=== PATIENT | male | born 1970 | race Two or more races ===

== ENCOUNTER 2020-03-24 10:36 | Outpatient (REF) | payer OTHER, SELFPAY ==
[2020-03-24 14:40] LABS: Anion Gap 12 (12-20); Blood Urea Nitrogen 16 mg/dL (9-16); C Reactive Protein 0.84 mg/dL (< or = 0.50); Calcium 9.3 mg/dL (8.4-10.2); Carbon Dioxide 31 mmol/L (22-29); Chloride 104 mmol/L (96-108); Estimated Glomerular Filt Rate > 60; Glucose Random 92 mg/dL (60-115); Potassium 4.7 mmol/l (3.3-5.1); Sodium 142 mmol/L (135-145)
== END 2020-03-24 10:37 | disposition home or self-care (01) ==
LOC: HO.10HDL 10:36
PROVIDERS: Visit Provider Internal Medicine
DX: M79.675 Pain in left toe(s) (principal)
CPT/HCPCS: 80048; 84550; 86140

== ENCOUNTER 2020-05-27 14:18 | Outpatient (REF) | payer OTHER, SELFPAY | END 2020-05-27 14:19 | disposition home or self-care (01) | LOC: HO.LAB 14:18 | PROVIDERS: Visit Provider Internal Medicine | DX: Z20.828 Contact with and (suspected) exposure to other viral communicable diseases (principal) | CPT/HCPCS: C9803; U0003 ==

== ENCOUNTER 2020-11-18 07:10 | Outpatient (REF) | payer OTHER, SELFPAY ==
[2020-11-18 09:21] LABS: MANUAL DIFF FLAG NO
[2020-11-18 09:25] LABS: Basophils Percent Auto 0.5 % (0-2); Eosinophils Absolute Auto 0.1 X10*3/uL (0.0-0.4); Eosinophils Percent Auto 1.6 % (0-4); Hematocrit 39.9 % (42-52); Hemoglobin 13.1 g/dl (14.0-18.0); Imm Gran Abs Auto 0.02 X10*3/uL (0.00-0.03); Imm Gran Pct Auto 0.3 % (0.0-0.4); Lymphocytes Absolute Auto 1.6 X10*3/uL (1.2-4.9); Lymphocytes Percent Auto 24.8 % (20-40); Mean Corpuscular HGB Conc 32.8 g/dl (31.0-36.0); Mean Corpuscular Hemoglobin 30.8 pg (27.0-33.0); Mean Corpuscular Volume 93.9 fL (80-98); Mean Platelet Volume 11.3 fL (9.4-12.4); Monocytes Absolute Auto 0.6 X10*3/uL (0.1-1.2); Monocytes Percent Auto 8.8 % (2-11); Neutrophils Absolute Auto 4.1 X10*3/uL (2.0-8.3); Platelet Count 238 X10*3/uL (160-400); Red Blood Count 4.25 X10*6/uL (4.60-5.80); Red Cell Distribution Width 13.9 % (11.0-16.0); White Blood Count 6.4 X10*3/uL (4.8-10.8)
[2020-11-18 09:55] LABS: Alanine Aminotransferase 25 U/L (0-40); Albumin Level 4.4 g/dL (3.5-5.0); Alkaline Phosphatase 80 U/L (39-117); Anion Gap 12 (12-20); Aspartate Amino Transferase 33 U/L (5-37); Bilirubin Total 0.3 mg/dL (0.0-1.0); Blood Urea Nitrogen 16 mg/dL (9-16); C Reactive Protein 0.13 mg/dL (< or = 0.50); Calcium 9.2 mg/dL (8.4-10.2); Carbon Dioxide 29 mmol/L (22-29); Chloride 105 mmol/L (96-108); Estimated Glomerular Filt Rate > 60; Glucose Random 95 mg/dL (60-115); Potassium 4.3 mmol/L (3.3-5.1); Sodium 142 mmol/L (135-145); Total Protein 6.8 g/dL (6.5-8.0)
[2020-11-18 09:57] LABS: HIV AB/AG Nonreactive (Nonreactive); HIV Num 1 0.05 S/CO (0.00-0.99)
[2020-11-18 10:01] LABS: Vitamin D 25-OH Total 29.1 ng/mL (>30)
[2020-11-18 10:11] LABS: Vitamin B12 337 pg/mL (200-900)
== END 2020-11-18 07:11 | disposition home or self-care (01) ==
LOC: HO.LAB 07:10
PROVIDERS: PCP Internal Medicine; Visit Provider Internal Medicine
DX: R53.83 Other fatigue (principal); S09.90XA Unspecified injury of head, initial encounter; R63.4 Abnormal weight loss; X58.XXXA Exposure to other specified factors, initial encounter; Y93.9 Activity, unspecified; Y92.9 Unspecified place or not applicable; Y99.9 Unspecified external cause status
CPT/HCPCS: 36415; 80053; 82306; 82607; 85025; 86140; 87389

== ENCOUNTER 2020-12-01 15:34 | Outpatient (REF) | payer OTHER, SELFPAY ==
--- NOTE | ~2020-12-01 | CT_ITS ---
EXAMINATION: CT HEAD WITHOUT CONTRAST CLINICAL INFORMATION: Head injury and dizziness. Rule out lesion. COMPARISON: None TECHNIQUE: Contiguous axial imaging was performed from the skull base to vertex without intravenous administration of contrast. This CT examination was performed using dose optimization techniques as appropriate, variously including the following: *Automated exposure control *Adjustment of mA and/or kV according to patient size (this includes techniques or standardized protocols for targeted exams where dose is matched to indication/reason for exam; i.e. extremities or head) *Use of iterative reconstruction technique DLP: 695 mGy-cm FINDINGS: There is no evidence of acute intracranial hemorrhage or territorial infarction. No abnormal mass effect or midline shift is seen. Ford to white matter differentiation is well preserved. No extra-axial fluid collections are identified. The ventricles are normal in size. There is no abnormal attenuation within the brain parenchyma. The osseous structures and soft tissues are normal. The mastoid air cells and visualized portions of the paranasal sinuses are well aerated. CT/CT head/brain wo con IMPRESSION: Unremarkable exam.
== END 2020-12-01 15:35 | disposition home or self-care (01) ==
LOC: HO.CT 15:34
PROVIDERS: Visit Provider Internal Medicine
DX: S09.90XA Unspecified injury of head, initial encounter (principal); R42 Dizziness and giddiness
CPT/HCPCS: 70450

== ENCOUNTER 2021-01-01 07:24 | Outpatient (REF) | payer OTHER, SELFPAY ==
[2021-01-01 08:20] LABS: MANUAL DIFF FLAG NO
[2021-01-01 08:24] LABS: Basophils Absolute Auto 0.1 X10*3/uL (0.0-0.2); Basophils Percent Auto 0.9 % (0-2); Eosinophils Absolute Auto 0.2 X10*3/uL (0.0-0.4); Hematocrit 41.8 % (42-52); Hemoglobin 13.7 g/dl (14.0-18.0); Imm Gran Abs Auto 0.01 X10*3/uL (0.00-0.03); Imm Gran Pct Auto 0.2 % (0.0-0.4); Lymphocytes Absolute Auto 1.7 X10*3/uL (1.2-4.9); Lymphocytes Percent Auto 30.3 % (20-40); Mean Corpuscular HGB Conc 32.8 g/dl (31.0-36.0); Mean Corpuscular Hemoglobin 30.9 pg (27.0-33.0); Mean Corpuscular Volume 94.4 fL (80-98); Mean Platelet Volume 10.9 fL (9.4-12.4); Monocytes Absolute Auto 0.6 X10*3/uL (0.1-1.2); Monocytes Percent Auto 9.8 % (2-11); Neutrophils Absolute Auto 3.2 X10*3/uL (2.0-8.3); Neutrophils Percent Auto 55.8 % (45-73); Platelet Count 252 X10*3/uL (160-400); Red Blood Count 4.43 X10*6/uL (4.60-5.80); Red Cell Distribution Width 13.5 % (11.0-16.0); White Blood Count 5.7 X10*3/uL (4.8-10.8)
[2021-01-01 09:07] LABS: Alanine Aminotransferase 17 U/L (0-40); Albumin Level 4.3 g/dL (3.5-5.0); Alkaline Phosphatase 80 U/L (39-117); Anion Gap 12 (12-20); Aspartate Amino Transferase 26 U/L (5-37); Bilirubin Total 0.3 mg/dL (0.0-1.0); Blood Urea Nitrogen 13 mg/dL (9-16); Calcium 9.7 mg/dL (8.4-10.2); Carbon Dioxide 27 mmol/L (22-29); Chloride 104 mmol/L (96-108); Cholesterol 200 mg/dL; Estimated Glomerular Filt Rate > 60; Glucose Random 104 mg/dL (60-115); Potassium 4.4 mmol/L (3.3-5.1); Sodium 139 mmol/L (135-145); Total Protein 6.7 g/dL (6.5-8.0)
[2021-01-03 08:12] LABS: HBc Num1 0.06 S/CO (0.00-0.79); HBsAGNum1 0.18 S/CO (0.00-0.99); Hepatitis B Core Antibody Nonreactive (Nonreactive); Hepatitis B Surface Antigen Negative (Negative)
[2021-01-03 08:14] LABS: ~HepC Num1 0.08 S/CO (0.00-0.79); ~Hepatitis C Antibody Nonreactive (Nonreactive)
[2021-01-03 08:28] LABS: HBS Num1 0.13 mIU/mL (0-7.99); ~Hepatitis B Surface Antibody NONREACTIVE (Nonreactive)
[2021-01-04 15:01] LABS: HIV RNA PCR Qn Copies <20 NOT DETECTED copies/mL (NOT DETECTED); HIV RNA PCR Qn Log Copies <1.30 NOT DETECTED (NOT DETECTED)
== END 2021-01-01 07:25 | disposition home or self-care (01) ==
LOC: HO.LAB 07:24
PROVIDERS: PCP Internal Medicine; Visit Provider Family Medicine
DX: Z01.84 Encounter for antibody response examination (principal); Z11.59 Encounter for screening for other viral diseases; F11.20 Opioid dependence, uncomplicated
CPT/HCPCS: 36415; 80053; 82465; 85025; 86704; 86706; 86803; 87340; 87536

== ENCOUNTER 2022-04-22 07:01 | Outpatient (REF) | payer OTHER, SELFPAY ==
[2022-04-22 07:18] LABS: MANUAL DIFF FLAG NO
[2022-04-22 08:02] LABS: Basophils Percent Auto 0.7 % (0-2); Eosinophils Absolute Auto 0.2 X10*3/uL (0.0-0.4); Eosinophils Percent Auto 2.7 % (0-4); Hematocrit 40.3 % (42.0-52.0); Hemoglobin 12.9 g/dl (14.0-18.0); Imm Gran Abs Auto 0.02 X10*3/uL (0.00-0.03); Imm Gran Pct Auto 0.4 % (0.0-0.4); Lymphocytes Absolute Auto 2.4 X10*3/uL (1.2-4.9); Lymphocytes Percent Auto 42.8 % (20-40); Mean Corpuscular Hemoglobin 30.4 pg (27.0-33.0); Mean Platelet Volume 10.8 fL (9.4-12.4); Monocytes Absolute Auto 0.6 X10*3/uL (0.1-1.2); Monocytes Percent Auto 10.3 % (2-11); Neutrophils Absolute Auto 2.4 x10*3/uL (2.0-8.3); Neutrophils Percent Auto 43.1 % (45-73); Platelet Count 261 X10*3/uL (160-400); Red Blood Count 4.24 X10*6/uL (4.60-5.80); Red Cell Distribution Width 13.5 % (11.0-16.0); White Blood Count 5.5 X10*3/uL (4.8-10.8)
[2022-04-22 08:45] LABS: Alanine Aminotransferase 18 U/L (0-40); Albumin Level 4.3 g/dL (3.5-5.0); Alkaline Phosphatase 86 U/L (39-117); Anion Gap 13 (12-20); Aspartate Amino Transferase 30 U/L (5-37); Bilirubin Total 0.4 mg/dL (0.0-1.0); Blood Urea Nitrogen 19 mg/dL (9-16); C Reactive Protein 0.32 mg/dL (< or = 0.50); Calcium 9.6 mg/dL (8.4-10.2); Carbon Dioxide 31 mmol/L (22-29); Chloride 99 mmol/L (96-108); Cholesterol 204 mg/dL; Estimated Glomerular Filt Rate > 60; Glucose Fasting 90 mg/dL (60-99); HDL Cholesterol 74 mg/dL; LDL Cholesterol Calculated 116 mg/dl; Potassium 4.6 mmol/L (3.3-5.1); Prostate Specific Antigen 0.62 ng/mL (<0.05-4.0); Sodium 138 mmol/L (135-145); Triglycerides 74 mg/dL
[2022-04-22 09:14] LABS: Appearance Urine Cloudy; Color Urine Yellow; Glucose Urine UA Negative (Negative); Leukocyte Esterase Urine Negative (Negative); Nitrite Urine Negative (Negative); Urine Blood Negative (Negative); Urine Ketones Negative (Negative); Urine Protein Negative (Neg-Trace)
== END 2022-04-22 07:02 | disposition home or self-care (01) ==
LOC: HO.LAB 07:01
PROVIDERS: PCP Internal Medicine; Visit Provider Internal Medicine
DX: Z00.00 Encounter for general adult medical examination without abnormal findings (principal); Z12.5 Encounter for screening for malignant neoplasm of prostate; R63.4 Abnormal weight loss
CPT/HCPCS: 36415; 80053; 80061; 81003; 84153; 85025; 86140

== ENCOUNTER 2022-05-16 10:22 | Outpatient (REF) | payer OTHER, SELFPAY ==
[2022-05-16 10:53] LABS: MANUAL DIFF FLAG NO
[2022-05-16 11:06] LABS: Basophils Percent Auto 0.6 % (0-2); Eosinophils Absolute Auto 0.1 X10*3/uL (0.0-0.4); Eosinophils Percent Auto 1.8 % (0-4); Hematocrit 38.6 % (42.0-52.0); Hemoglobin 12.6 g/dl (14.0-18.0); Imm Gran Abs Auto 0.02 X10*3/uL (0.00-0.03); Imm Gran Pct Auto 0.3 % (0.0-0.4); Lymphocytes Absolute Auto 2.2 X10*3/uL (1.2-4.9); Lymphocytes Percent Auto 33.8 % (20-40); Mean Corpuscular HGB Conc 32.6 g/dl (31.0-36.0); Mean Corpuscular Volume 95.1 fL (80.0-98.0); Mean Platelet Volume 10.7 fL (9.4-12.4); Monocytes Absolute Auto 0.5 X10*3/uL (0.1-1.2); Neutrophils Absolute Auto 3.7 x10*3/uL (2.0-8.3); Neutrophils Percent Auto 55.5 % (45-73); Platelet Count 218 X10*3/uL (160-400); Red Blood Count 4.06 X10*6/uL (4.60-5.80); Red Cell Distribution Width 13.3 % (11.0-16.0); White Blood Count 6.6 X10*3/uL (4.8-10.8)
[2022-05-16 11:49] LABS: Free T4 (Free Thyroxine) 1.09 ng/dL (0.71-1.85); Iron 40 mcg/dL (45-160); Percent Iron Saturation 15 % (15-50); Thyroid Stimulating Hormone 3.59 uIU/mL (0.32-4.0); Total Iron Binding Capacity 271 mcg/dL (228-428); Unsaturated Iron Binding 231 ug/dL
[2022-05-16 11:55] LABS: Vitamin B12 788 pg/mL (200-900)
== END 2022-05-16 10:23 | disposition home or self-care (01) ==
LOC: HO.10HDL 10:22
PROVIDERS: Visit Provider Internal Medicine
DX: R53.83 Other fatigue (principal); D64.9 Anemia, unspecified; R63.4 Abnormal weight loss
CPT/HCPCS: 36415; 82607; 83540; 84439; 84443; 85025

== ENCOUNTER 2022-05-20 08:55 | Outpatient (REF) | payer OTHER, SELFPAY ==
--- NOTE | ~2022-05-20 | XR_ITS ---
EXAMINATION: XR CHEST CLINICAL INFORMATION: Difficulty breathing. Smoking history. COMPARISON: None TECHNIQUE: 2 views of the chest were obtained. FINDINGS: There is hyperinflation/COPD. The lungs are clear and the vascularity is normal. There is no vascular congestion, airspace consolidation, or groundglass opacity. No effusion. The heart is normal in size. The hilar and mediastinal contours and bony structures are unremarkable. XR/XR chest 2V IMPRESSION: Hyperinflation/COPD. Lungs clear.
== END 2022-05-20 08:56 | disposition home or self-care (01) ==
LOC: HO.XRAY 08:55
PROVIDERS: PCP Internal Medicine; Visit Provider Internal Medicine
DX: R53.83 Other fatigue (principal); D64.9 Anemia, unspecified; R63.4 Abnormal weight loss
CPT/HCPCS: 71046

== ENCOUNTER 2022-06-09 16:54 | Outpatient (REF) | payer OTHER, SELFPAY ==
--- NOTE | ~2022-06-09 | XR_ITS ---
EXAMINATION: XR FACIAL BONES CLINICAL INFORMATION: Left cheek injury. COMPARISON: CT dated 12/01/2020 TECHNIQUE: 4 views of the facial bones were obtained. FINDINGS: No acute fracture identified. Orbital taylor appear intact. Zygomatic arches appear intact, though the left zygomatic arch is underexposed and the right is partially obscured. Paranasal sinuses are clear. No air-fluid levels. No acute soft tissue findings. XR/XR facial bones min 3V IMPRESSION: No acute fracture is identified.
[2022-06-09 17:09] LABS: MANUAL DIFF FLAG NO
[2022-06-09 17:25] LABS: Basophils Percent Auto 0.6 % (0-2); Eosinophils Absolute Auto 0.1 X10*3/uL (0.0-0.4); Eosinophils Percent Auto 1.6 % (0-4); Hematocrit 38.7 % (42.0-52.0); Hemoglobin 12.5 g/dl (14.0-18.0); Imm Gran Abs Auto 0.02 X10*3/uL (0.00-0.03); Imm Gran Pct Auto 0.3 % (0.0-0.4); Lymphocytes Percent Auto 31.4 % (20-40); Mean Corpuscular HGB Conc 32.3 g/dl (31.0-36.0); Mean Corpuscular Hemoglobin 30.6 pg (27.0-33.0); Mean Corpuscular Volume 94.9 fL (80.0-98.0); Mean Platelet Volume 10.7 fL (9.4-12.4); Monocytes Absolute Auto 0.6 X10*3/uL (0.1-1.2); Neutrophils Absolute Auto 3.6 x10*3/uL (2.0-8.3); Neutrophils Percent Auto 57.1 % (45-73); Platelet Count 230 X10*3/uL (160-400); Red Blood Count 4.08 X10*6/uL (4.60-5.80); Red Cell Distribution Width 13.1 % (11.0-16.0); White Blood Count 6.3 X10*3/uL (4.8-10.8)
[2022-06-09 17:50] LABS: Alanine Aminotransferase 13 U/L (0-40); Albumin Level 4.1 g/dL (3.5-5.0); Alkaline Phosphatase 83 U/L (39-117); Anion Gap 12 (12-20); Aspartate Amino Transferase 25 U/L (5-37); Bilirubin Total 0.3 mg/dL (0.0-1.0); Blood Urea Nitrogen 10 mg/dL (9-16); Calcium 9.3 mg/dL (8.4-10.2); Carbon Dioxide 30 mmol/L (22-29); Chloride 103 mmol/L (96-108); Estimated Glomerular Filt Rate > 60; Glucose Random 89 mg/dL (60-115); Potassium 4.6 mmol/L (3.3-5.1); Sodium 140 mmol/L (135-145); Total Protein 6.6 g/dL (6.5-8.0)
== END 2022-06-09 16:55 | disposition home or self-care (01) ==
LOC: HO.LAB 16:54
PROVIDERS: PCP Internal Medicine; Visit Provider Internal Medicine
DX: S09.93XD Unspecified injury of face, subsequent encounter (principal)
CPT/HCPCS: 36415; 70150; 80053; 82550; 85025

== ENCOUNTER 2022-06-13 10:02 | Outpatient (REF) | payer OTHER, SELFPAY ==
--- NOTE | ~2022-06-13 | CT_ITS ---
EXAMINATION: CT ABDOMEN AND PELVIS WITHOUT CONTRAST CLINICAL INFORMATION: Weight loss, abdominal pain, iron deficiency. COMPARISON: None. TECHNIQUE: Multidetector volumetric imaging was performed from the superior aspect of the liver through the pubic symphysis. Sagittal and coronal reformatted images were obtained on the technologist's workstation. This CT examination was performed using dose optimization techniques as appropriate, variously including the following: *Automated exposure control *Adjustment of mA and/or kV according to patient size (this includes techniques or standardized protocols for targeted exams where dose is matched to indication/reason for exam; i.e. extremities or head) *Use of iterative reconstruction technique DLP: 186 mGy-cm. FINDINGS: LUNG BASES: The visualized lung bases are unremarkable. LIVER, GALLBLADDER, AND BILIARY TREE: The liver is normal in size, shape, and attenuation. No focal hepatic lesion or biliary ductal dilatation is present. The gallbladder is unremarkable with no evidence of radiopaque gallstones, gallbladder wall thickening, or obvious pericholecystic inflammatory changes. PANCREAS: Unremarkable. SPLEEN: The spleen is normal size with focal calcification. ADRENAL GLANDS: Unremarkable. KIDNEYS AND URETERS: The kidneys are normal in size, shape, and attenuation. There is a 2 mm nonobstructive radiopaque calculus lower pole left kidney. No additional radiopaque calculi seen. Right kidney measures 12.2 cm. The left kidney measures 9.5 cm in length. BLADDER: Unremarkable. GASTROINTESTINAL TRACT: There is scattered stool seen throughout the colon without distention. The small bowel loops are normal caliber. Appendix is not seen. There is no free air or free fluid. ABDOMINAL WALL: No significant hernia is appreciated. LYMPH NODES: Normal. VASCULAR: Mild atherosclerotic calcification of abdominal aorta and both common iliac arteries is noted but no aneurysmal dilatation seen. PELVIC VISCERA: Unremarkable. OSSEOUS STRUCTURES: Degenerative disc changes L5-S1 disc level with vacuum disc phenomena and mild ventral spondylosis. No aggressive lytic or sclerotic process seen. CT/CT abdomen pelvis wo IV con IMPRESSION: 1. No acute intra-abdominal process seen. 2. Significant constipation. 3. Nonobstructive 2 mm radiopaque calculus lower pole left kidney. Fleischner guidelines were followed.
== END 2022-06-13 10:03 | disposition home or self-care (01) ==
LOC: HO.CT 10:02
PROVIDERS: PCP Internal Medicine; Visit Provider Internal Medicine
DX: R10.0 Acute abdomen (principal); R63.4 Abnormal weight loss
CPT/HCPCS: 74176

== ENCOUNTER 2022-06-22 06:35 | Outpatient (REF) | payer OTHER, SELFPAY ==
[2022-06-22 07:56] LABS: Immature Retic Fraction 17.6 % (2.3-13.4); Retic HGB Equivalent 34.7 pg (30.0-35.0); Reticulocyte Percent 1.2 % (0.5-1.8); Reticulocytes Absolute 0.053 X10*6/uL (0.026-0.095)
[2022-06-22 08:21] LABS: C Reactive Protein 0.53 mg/dL (< or = 0.50); Rheumatoid Factor < 13.0 IU/mL (<15.0)
[2022-06-22 08:31] LABS: Erythrocyte Sedimentation Rate 29 MM/HR (0-15)
[2022-06-26 16:23] LABS: Anti Nuclear Antibody Screen NEGATIVE (NEGATIVE)
== END 2022-06-22 06:36 | disposition home or self-care (01) ==
LOC: HO.LAB 06:35
PROVIDERS: PCP Internal Medicine; Visit Provider Internal Medicine
DX: D64.9 Anemia, unspecified (principal); R51.9 Headache, unspecified; R79.82 Elevated C-reactive protein (CRP)
CPT/HCPCS: 36415; 82550; 85045; 85652; 86038; 86039; 86140; 86431

== ENCOUNTER → 2022-06-29 14:18 | Outpatient (BNVA) | payer OTHER, SELFPAY | PROVIDERS: PCP Internal Medicine; Visit Provider Internal Medicine | DX: Z02.79 Encounter for issue of other medical certificate (principal) | CPT/HCPCS: 70450; 70486; 99203 ==

== ENCOUNTER → 2022-07-06 08:57 | Outpatient (BNVA) | payer OTHER, SELFPAY | PROVIDERS: PCP Internal Medicine; Visit Provider Internal Medicine | DX: Z13.89 Encounter for screening for other disorder (principal) | CPT/HCPCS: 99214 ==

== ENCOUNTER → 2022-07-20 09:25 | Outpatient (BNVA) | payer OTHER, SELFPAY | PROVIDERS: PCP Internal Medicine; Visit Provider Internal Medicine | DX: Z13.89 Encounter for screening for other disorder (principal) | CPT/HCPCS: 99213 ==

== ENCOUNTER → 2022-08-03 11:28 | Outpatient (BNVA) | payer OTHER, SELFPAY | PROVIDERS: PCP Internal Medicine; Visit Provider Internal Medicine | DX: Z13.89 Encounter for screening for other disorder (principal) | CPT/HCPCS: 99213 ==

== ENCOUNTER → 2022-08-17 09:07 | Outpatient (BNVA) | payer OTHER, SELFPAY | PROVIDERS: PCP Internal Medicine; Visit Provider Internal Medicine | DX: Z13.89 Encounter for screening for other disorder (principal) | CPT/HCPCS: 99213 ==

== ENCOUNTER → 2022-08-30 12:50 | Outpatient (BNVA) | payer OTHER, SELFPAY | PROVIDERS: PCP Internal Medicine; Visit Provider Nurse Practitioner Family | DX: S06.0XAA Concussion with loss of consciousness status unknown, initial encounter (principal); R26.89 Other abnormalities of gait and mobility; R42 Dizziness and giddiness; R53.1 Weakness; R51.9 Headache, unspecified | CPT/HCPCS: 99202 ==

== ENCOUNTER → 2022-09-19 08:47 | Outpatient (BNVA) | payer OTHER, SELFPAY | PROVIDERS: PCP Internal Medicine; Visit Provider Internal Medicine | DX: Z13.89 Encounter for screening for other disorder (principal) | CPT/HCPCS: 99213 ==

== ENCOUNTER → 2022-10-03 08:54 | Outpatient (BNVA) | payer OTHER, SELFPAY | PROVIDERS: PCP Internal Medicine; Visit Provider Internal Medicine | DX: Z13.89 Encounter for screening for other disorder (principal) | CPT/HCPCS: 36415; 80053; 83735; 84443; 85027; 99213 ==

== ENCOUNTER 2022-10-17 09:00 | Outpatient (RCR) | payer OTHER, SELFPAY ==
--- NOTE | 2022-12-07 07:42 | MHC.PT.DC ---
[facility] [place] Office [place] Office [place] Office [address] Angel Vazquez 140 [facility] [phone] F: [phone] F: [phone] F: [phone] F: [phone] Physical Therapy Discharge Report Diagnosis: POST-CONCUSSIVE SYNDROME Date of Surgery: Date of Evaluation: 09/04/22 Date of Discharge: 12/07/22 Treatments to Date: 6 Cancellations to Date: 1 No Shows to Date: 1 Discharge Status: Discharge Summary: Pt was issued comprehensive written HEP and referred to OT for additional memory and post-concussive treatment, he has requested DC at this time from PT/OT to continue w/ home program. Electronically signed by: Pratima Jerez PT DPT Please sign and return to therapist. Thank you for your referral.
== END 2022-12-07 07:42 | disposition home or self-care (01) ==
LOC: HO.PT 09:00
PROVIDERS: PCP Internal Medicine; Visit Provider Nurse Practitioner Family
DX: R26.89 Other abnormalities of gait and mobility (principal)
CPT/HCPCS: 97110; 97140; 97163; 97530

== ENCOUNTER → 2022-11-23 08:46 | Outpatient (BNVA) | payer OTHER, SELFPAY | PROVIDERS: PCP Internal Medicine; Visit Provider Nurse Practitioner Family | DX: S00.93XA Contusion of unspecified part of head, initial encounter (principal); R26.89 Other abnormalities of gait and mobility; R42 Dizziness and giddiness; R53.1 Weakness; R51.9 Headache, unspecified | CPT/HCPCS: 99212 ==

== ENCOUNTER → 2022-12-04 12:53 | Outpatient (BNVA) | payer OTHER, SELFPAY | PROVIDERS: PCP Internal Medicine; Visit Provider Internal Medicine | DX: Z13.89 Encounter for screening for other disorder (principal) | CPT/HCPCS: 99213 ==

== ENCOUNTER 2022-12-06 15:00 | Outpatient (RCR) | payer OTHER, SELFPAY ==
--- NOTE | 2022-11-08 11:30 | MHC.OT.EP ---
[address] [phone] Occupational Therapy Plan of Care Patient Name: Joseph Brown Date of Evaluation: 11/08/22 Diagnosis: Traumatic brain injury w/ mental status change Pain Location: Headaches 0/10 currently Best: 0/10 Worst: 10/10 Anxiety daily 10/10 On medication Aggravating Factors: Bright lights, loud noises, crowds/people Alleviating Factors: For anxiety Medication Assessment: Pt is a 52 y/o male referred to OT for cognitive therapy following a traumatic head injury in 2022. The patient reports sustaining a previous injury in May that he does not remember, where he also suffered a LOC. Joseph reports a significant change in his mood and appetite since the injury, down to about 95 lbs, appearing malnourished and very anxious. He reports getting headaches about 4x/wk which can reach 10/10 at times. With headaches he experiences dizziness and nausea. Pt experiences photophobia/phonophobia, poor memory/attention, and difficulty with word finding. He scored 16/30 on the Elbert Cognitive Assessment indicating a moderate cognitive impairment. Pt would benefit from skilled OT services to address previously noted barriers and assist in return to OF. Frequency and Duration: The patient will be seen 1x/wk for 6 weeks Short Term Goals: IND with knowledge of MORALES triggers and reduction strategies Pt will report using memory strategies in personal life, e.g., calendar, notes, etc. Pt will perform diaphragmatic breathing exercises independently to decrease anxiety Pt will be educated in and trial sleep hygiene strategies IND with convergence exercises to improve visual focus Longterm Goals: Decrease headache intensity and frequency to <1x/wk IND with sleep hygiene strategies reporting >5 hours of consecutive sleep IND with stress management techniques Improved QOL as evidence by Rivermead score <32 Improve STM as evidenced by >21/30 score on MOCA Report improved balance w/ decreased incidence of double vision Treatment Plan: Therapeutic Exercise Therapeutic Activity Home Exercise Program Patient Education ADL Training Other (see comments) Cognitive training, headache management, supervisor 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 Thank you once again for your referral.
--- NOTE | 2022-12-06 16:06 | MHC.OT.EP ---
[address] [phone] Occupational Therapy Plan of Care Patient Name: Joseph Brown Date of Evaluation: 12/06/22 Diagnosis: Traumatic brain injury w/ mental status change Pain Location: Headaches 0/10 Best: 0/10 Worst: 10/10 Anxiety daily 10/10 On medication Pain Score: Aggravating Factors: Bright lights, loud noises, crowds/people Alleviating Factors: For anxiety Medication Assessment: Pt is a 52 y/o male referred to OT for cognitive therapy following a traumatic head injury in 2022. The patient reports sustaining a previous injury in May that he does not remember, where he also suffered a LOC. Joseph reports a significant change in his mood and appetite since the injury, down to about 95 lbs, appearing malnourished and very anxious. He reports getting headaches about 4x/wk which can reach 10/10 at times. With headaches he experiences dizziness and nausea. Pt experiences photophobia/phonophobia, poor memory/attention, and difficulty with word finding. He scored 16/30 on the Elbert Cognitive Assessment indicating a moderate cognitive impairment. Pt would benefit from skilled OT services to address previously noted barriers and assist in return to OF. Frequency and Duration: The patient will be seen 1x/wk for 6 weeks Short Term Goals: IND with knowledge of MORALES triggers and reduction strategies - MET Pt will report using memory strategies in personal life, e.g., calendar, notes, etc. 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 Goals: Decrease headache intensity and frequency to <1x/wk - MET IND with sleep hygiene strategies reporting >5 hours of consecutive sleep - NOT MET IND with stress management techniques - MET Improved QOL as evidence by Rivermead score <32 - NOT MET Improve STM as evidenced by >21/30 score on MOCA -DECLINED Report improved balance w/ decreased incidence of double vision - PROGRESSING Treatment Plan: Therapeutic Exercise Therapeutic Activity Home Exercise Program Patient Education ADL Training Other (see comments) Cognitive training, headache management, 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 Thank you once again for your referral.
== END 2022-12-06 16:07 | disposition home or self-care (01) ==
LOC: HO.OT 15:00
PROVIDERS: PCP Internal Medicine; Visit Provider Internal Medicine
DX: S06.9XAD Unspecified intracranial injury with loss of consciousness status unknown, subsequent encounter (principal); R41.82 Altered mental status, unspecified
CPT/HCPCS: 97166; 97530

== ENCOUNTER 2023-08-01 08:12 | Outpatient (AMB) | payer OTHER, SELFPAY ==
--- NOTE | 2023-08-01 08:15 | MHC.OFFVIS ---
Intake Vital Signs 08/01/23 08:21 Height 5 ft 7 in Weight 123 lb 4 oz BMI 19.3 BP 92/74 Blood Pressure Location Lt brachial Position Sitting Pulse 66 Pulse Source Pulse Oximeter Pulse Oximetry (%) 98 Oxygen Delivery Method Room Air Intake Visit Reasons: f/u for head injury-lvm Intake Note: Patient presents for f/u. the balance is still off, still having trouble with memory. Allergies No Known Allergies [No Known Allergies*] Allergy (Verified 08/01/23 08:20) Medication List - Last Reconciled 08/01/23 by Duarte Laws CNP amitriptyline 10 mg PO BEDTIME clonazepam 1 mg PO BID magnesium oxide 400 mg PO BEDTIME 30 days omeprazole 20 mg PO QAM riboflavin (vitamin B2) 400 mg PO DAILY 90 days HPI HPI Comments History of Present Illness Details 53 y/o male patient presents with his for follow up of post concussion. Pt's reports that he finished occupational therapy for memory, and cognitive activity. Memory has not improved. He keep forgetting and has difficulty concentrating. He lost his job, he kept forgetting what he had to do. However, noticed that he is more alert and interact with her. Brain MRI ordered, but he could not finish MRI, he was claustrophobic, he used clonazepam 2 mg at the day, but still he could not do MRI. Open MRI ordered, but not done yet. Pt has hx of anxiety, sees therapist every 2 weeks and sees psychiatrist every 2 months. He is on clonazepam 1 mg BID, it helps to reduce anxiety Pt's reports that his balance has improved a little bit, and he tries not to use cane. Amitriptyline 10 mg and baclofen 10 mg help him relaxed and asleep better. Pt reports left side pounding headache has improved a little bit with baclofen but he did not have refills. He uses Ibuprofen or Tylenol as needed. Pt reports he reduced smoking cigarets, he was a heavy smoker but reduce more than half. He is not physically active during daytime. [facility] Social History Alcohol intake: current Alcohol intake frequency: holidays/special occasions only Patient Tobacco Use Status: Current everyday Tobacco user Review of Systems Const All systems reviewed & are unremarkable except as noted in HPI and below ENT Reports Normal hearing present Neuro Reports Normal hearing present Physical Exam Vital Signs: Last Vital Signs Pulse 66 08/01/23 08:21 BP 92/74 08/01/23 08:21 Pulse Ox 98 08/01/23 08:21 Oxygen Delivery Method Room Air 08/01/23 08:21 BMI result Body Mass Index 19.3 Const General: cooperative and other (wear t shirt inside out. ) Nutritional Appearance: malnourished Orientation/consciousness: patient oriented x3 HEENT Head: Yes normal to inspection Neck Other: Limited lateral range of motion to right. Neck: Yes supple Resp Effort & Inspection: normal respiratory effort and able to speak in complete sentences Neuro General: patient oriented x3, gait normal and moves all extremities Cranial nerves: Yes Bilaterally intact EOM present, Yes Midline tongue present, Yes Normal hearing present, Yes Ability to bilaterally rotate head present and Yes Ability to bilaterally elevate shoulders present Cognition (Neuro): normal cognition Gait exam (Neuro): Assisted gait required (walk with holding wall or his . ) Motor exam (neuro): Pronator motor function not present and no tremor noted Deep tendon reflexes (DTR's): Right brachioradialis reflex intensity grade: 2+, Left brachioradialis reflex intensity grade: 3+, Right patellar reflex intensity grade: 2+ and Left patellar reflex intensity grade: 4+ Coordination: [id number] test normal Psych Appearance: grossly normal Speech and movement: Normal speech and movement present and Clear speech present Affect: normal affect Attitude: cooperative Assessment & Plan Assessment & Plan (1) Concussion: Code(s): S06.0XAA - Concussion with loss of consciousness status unknown, initial encounter (2) Headache: Code(s): R51.9 - Headache, unspecified (3) Difficulty sleeping: Code(s): G47.9 - Sleep disorder, unspecified Plan Advised patient to take amitriptyline 10 mg and baclofen 10 mg qHS to prevent headache and promote sleep. Start magnesium 400 mg qHS and vitamin B2 400 mg q daily for headache prevention. Advised patient to undergo open MRI for evaluation of headache, dizziness and memory loss. Orders: Orders MR head/brain wo con Today R26.89 - Other abnormalities of gait and mobility, R42 - Dizziness and giddiness, R51.9 - Headache, unspecified, R53.1 - Weakness, S00.93XA - Contusion of unspecified part of head, initial encounter, S06.0XAA - Concussion with loss of consciousness status unknown, initial encounter Medications: New baclofen 10 mg PO BEDTIME 30 days 30 tabs 3RF Coding Level of Care Code Est Pt Level 4 (66682) Diagnoses Concussion S06.0XAA Headache R51.9 Difficulty sleeping G47.9
[2023-08-01 08:21] VITALS: BP 92/74; PULSE 66; O2SAT 98; BMI 19.3
== END 2023-08-01 08:45 | disposition home or self-care (01) ==
PROVIDERS: PCP Internal Medicine; Visit Provider Nurse Practitioner Family
DX: S06.0XAA Concussion with loss of consciousness status unknown, initial encounter (principal); R51.9 Headache, unspecified; G47.9 Sleep disorder, unspecified
CPT/HCPCS: 99214

== ENCOUNTER → 2023-08-01 08:12 | Outpatient (BNVA) | payer OTHER, SELFPAY | PROVIDERS: PCP Internal Medicine; Visit Provider Nurse Practitioner Family | DX: S06.0XAD Concussion with loss of consciousness status unknown, subsequent encounter (principal); R51.9 Headache, unspecified; G47.9 Sleep disorder, unspecified | CPT/HCPCS: 99212 ==

== ENCOUNTER 2023-08-29 09:05 | Outpatient (REF) | payer OTHER, SELFPAY ==
[2023-08-29 09:21] LABS: MANUAL DIFF FLAG NO
[2023-08-29 09:36] LABS: Basophils Percent Auto 0.4 % (0-2); Eosinophils Absolute Auto 0.1 X10*3/uL (0.0-0.4); Hematocrit 39.3 % (42.0-52.0); Imm Gran Abs Auto 0.01 X10*3/uL (0.00-0.03); Imm Gran Pct Auto 0.1 % (0.0-0.4); Lymphocytes Absolute Auto 2.5 X10*3/uL (1.2-4.9); Lymphocytes Percent Auto 35.8 % (20-40); Mean Corpuscular HGB Conc 33.1 g/dl (31.0-36.0); Mean Corpuscular Hemoglobin 29.6 pg (27.0-33.0); Mean Corpuscular Volume 89.5 fL (80.0-98.0); Mean Platelet Volume 10.4 fL (9.4-12.4); Monocytes Absolute Auto 0.7 X10*3/uL (0.1-1.2); Monocytes Percent Auto 9.6 % (2-11); Neutrophils Absolute Auto 3.7 x10*3/uL (2.0-8.3); Neutrophils Percent Auto 52.1 % (45-73); Platelet Count 275 X10*3/uL (160-400); Red Blood Count 4.39 X10*6/uL (4.60-5.80); Red Cell Distribution Width 13.7 % (11.0-16.0); White Blood Count 7.1 X10*3/uL (4.8-10.8)
[2023-08-29 10:05] LABS: Alanine Aminotransferase 19 U/L (0-40); Albumin Level 3.8 g/dL (3.5-5.0); Alkaline Phosphatase 98 U/L (39-117); Anion Gap 10 (12-20); Aspartate Amino Transferase 35 U/L (5-37); Bilirubin Total 0.1 mg/dL (0.0-1.0); Blood Urea Nitrogen 18 mg/dL (9-16); C Reactive Protein 0.45 mg/dL (< or = 0.50); Calcium 9.3 mg/dL (8.4-10.2); Carbon Dioxide 29 mmol/L (22-29); Chloride 103 mmol/L (96-108); Cholesterol 230 mg/dL (<200); Estimated Glomerular Filt Rate > 60; Glucose Random 63 mg/dL (60-115); Iron 74 mcg/dL (45-160); Percent Iron Saturation 26 % (15-50); Potassium 4.3 mmol/L (3.3-5.1); Sodium 138 mmol/L (135-145); Total Iron Binding Capacity 287 mcg/dL (228-428); Total Protein 6.8 g/dL (6.5-8.0); Unsaturated Iron Binding 213 ug/dL
[2023-08-29 10:46] LABS: Vitamin B12 679 pg/mL (200-900)
== END 2023-08-29 09:06 | disposition home or self-care (01) ==
LOC: HO.LAB 09:05
PROVIDERS: PCP Internal Medicine; Visit Provider Internal Medicine
DX: D64.9 Anemia, unspecified (principal); R42 Dizziness and giddiness; K21.9 Gastro-esophageal reflux disease without esophagitis
CPT/HCPCS: 36415; 80053; 82306; 82465; 82550; 82607; 83540; 85025; 86140

== ENCOUNTER 2023-09-03 09:19 | Outpatient (REF) | payer OTHER, SELFPAY ==
[2023-09-03 10:00] LABS: Appearance Urine Clear; Color Urine Dark Yellow; Glucose Urine UA Negative (Negative); Leukocyte Esterase Urine Negative (Negative); Nitrite Urine Negative (Negative); PH 5.5 (5.0-9.0); Specific Gravity - Urine >= 1.030 (1.005-1.025); Urine Blood Negative (Negative); Urine Ketones Negative (Negative); Urine Protein Negative (Neg-Trace)
[2023-09-03 10:22] LABS: Alanine Aminotransferase 18 U/L (0-40); Albumin Level 3.7 g/dL (3.5-5.0); Alkaline Phosphatase 82 U/L (39-117); Anion Gap 11 (12-20); Aspartate Amino Transferase 25 U/L (5-37); Bilirubin Total 0.2 mg/dL (0.0-1.0); Blood Urea Nitrogen 15 mg/dL (9-16); C Reactive Protein 0.55 mg/dL (< or = 0.50); Calcium 8.9 mg/dL (8.4-10.2); Carbon Dioxide 28 mmol/L (22-29); Chloride 105 mmol/L (96-108); Estimated Glomerular Filt Rate > 60; Glucose Random 92 mg/dL (60-115); Iron 62 mcg/dL (45-160); Percent Iron Saturation 23 % (15-50); Potassium 4.1 mmol/L (3.3-5.1); Sodium 140 mmol/L (135-145); Total Iron Binding Capacity 275 mcg/dL (228-428); Total Protein 6.7 g/dL (6.5-8.0); Unsaturated Iron Binding 213 ug/dL
[2023-09-03 10:30] LABS: Prostate Specific Antigen 0.58 ng/mL (<0.05-4.0)
[2023-09-03 10:31] LABS: HIV AB/AG Nonreactive (Nonreactive); HIV Num 1 0.05 S/CO (0.00-0.99); ~HepC Num1 0.16 S/CO (0.00-0.79); ~Hepatitis C Antibody Nonreactive (Nonreactive)
[2023-09-03 10:32] LABS: Syphilis Screen Nonreactive (Nonreactive)
== END 2023-09-03 09:20 | disposition home or self-care (01) ==
LOC: HO.LAB 09:19
PROVIDERS: PCP Internal Medicine; Visit Provider Internal Medicine
DX: Z11.4 Encounter for screening for human immunodeficiency virus [HIV] (principal); R53.83 Other fatigue; D64.9 Anemia, unspecified; R53.1 Weakness
CPT/HCPCS: 36415; 80053; 81003; 82378; 82550; 83540; 84153; 86140; 86780; 86803; 87086; 87389

== ENCOUNTER → 2023-09-21 10:35 | Outpatient (REF) | payer OTHER, SELFPAY ==
--- NOTE | 2023-09-21 10:41 | CA_ITS ---
Transthoracic Echocardiogram Patient (Last, First, Middle): Joseph Brown E Gender: Male Date of : 1970 Age: 53 Procedure Date: 09/21/2023 Procedure Type: Transthoracic Echocardiogram Location: OP Height: 175.26 cm Weight: 56.25 kg BSA: 1.69 m2 Heart Rate: bpm BP: 118 / 60 mmHg Reliability Technician: Referring MD: Jonathon Dotson MD Symptoms: I45.10 RBBB R53.1 WEAKNESS Study Quality: Adequate ECG Rhythm: Sinus Conclusions: - The left ventricular systolic function is normal. The calculated ejection fraction is 56% by biplane method. - The inferolateral wall is hypokinetic. - No obvious valvular pathology seen on this study. Findings Left Ventricle Normal left ventricular cavity size. There is normal left ventricular wall thickness. The left ventricular systolic function is normal. The calculated ejection fraction is 56% by biplane method. There is evidence of regional wall motion abnormalities. Diastolic function is normal for age. Wall Motion Rest Echo Findings The inferolateral wall is hypokinetic. Right Ventricle Normal right ventricular cavity size and systolic function. Atria Both atria are normal in size. Aortic Valve There is a normal trileaflet aortic valve. There is no aortic valve stenosis. There is no aortic valve regurgitation. Mitral Valve The mitral valve appears normal. There is no mitral valve regurgitation. There is no mitral valve stenosis. Pulmonic Valve The pulmonic valve is likely normal. Tricuspid Valve Normal tricuspid valve structure. There is trace tricuspid valve regurgitation. There is no evidence of pulmonary hypertension. Great Vessels The asc aorta is normal in size. Small plaque is seen in the ascending aorta. Venous The inferior vena cava is normal in size and collapses greater than 50% with inspiration. Pericardium/Pleural There is no evidence of pericardial effusion. Prior Study Comparison No prior study available for comparison. Recommendations, Care & Conclusions No obvious valvular pathology seen on this study. Measurements 2D Linear Measurements IVSd: 0.82 0.6-0.9/0.6-1.0 cm LVIDd: 4.08 3.9-5.3/4.2-5.9 cm LVIDd Index: 2.41 2.4-3.2/2.2-3.1 cm/m2 LVIDs: 3.06 2.0-3.6 cm LVPWd: 0.89 0.7-1.1 cm Ao Root: 2.80 2.1-3.5 cm LA Diam: 2.40 2.7-3.8/3.0-4.0 cm LAIDs Index: 1.42 1.5-2.3 cm/m2 LV Mass: 130.71 67-162/88-224 g LV Mass Index: 77.34 43-95/49-115 g/m2 LVOT Diam: 2.00 3.0+(-)1.3 cm 2D Systolic Function EF 4C: 64.10 >55% EF 2C: 49.40 >55% EF BiP: 55.50 >55% Mitral Valve MV Pk E: 0.66 MV PK A: 0.44 MV Decel Time: 393.00 E/A: 1.50 E'Lateral: 14.80 E'Medial: 8.70 E/E' Med: 7.60 E/E' Lat: 4.50 PHT: 115.00 MVA PHT: 1.91 Decel [place]: 1.68 Aortic Valve AoV Pk Carlito: 0.86 AoV Mn Carlito: 0.57 AoV VTI: 0.27 AoV Pk Grad: 3.00 Aov Mn Grad: 2.00 MELIZA Cont.VTI: 1.99 LVOT LVOT Pk Carlito: 0.79 LVOT Mn Carlito: 0.45 LVOT VTI: 0.17 LVOT Pk Grad: 2.00 LVOT Mn Grad: 1.00 LVOT Diam: 2.00 LVOT Area: 3.14 Diastolic Function MV Pk E: 0.66 MV Pk A: 0.44 E/A: 1.50 E'Medial: 8.70 E/E' Med: 7.60 E' Laterial: 14.80 E/E' Lat: 4.50 Right Ventricle TAPSE (mm): 21.00 TVS' Carlito: 10.00 Tricuspid Valve TR Pk Carlito: 1.91 TR Pk Grad: 15.00 RA Press: 3.00 RVSP: 18.00 Great Vessels Aorta Ao Root-2D: 2.80 2.0-3.7 cm Ao Asc: 3.00 2.1-3.4 cm Pulmonary Valve PV Pk Carlito: 0.79 Peak PV Grad: 2.00 Updated in Other Vendor System with Status of Final Jose Blake MD electronically signed on 09/22/2023 1:15:11 PM with status of Final
== END ==
LOC: HO.CARD 10:35
PROVIDERS: PCP Internal Medicine; Visit Provider Internal Medicine
DX: I45.10 Unspecified right bundle-branch block (principal); R53.1 Weakness
CPT/HCPCS: 93306

== ENCOUNTER → 2023-09-21 10:41 | Outpatient (BNV) | payer OTHER, SELFPAY | PROVIDERS: PCP Internal Medicine; Visit Provider Internal Medicine | DX: I45.10 Unspecified right bundle-branch block (principal); R93.1 Abnormal findings on diagnostic imaging of heart and coronary circulation | CPT/HCPCS: 93306 ==

== ENCOUNTER 2023-10-02 13:35 | Outpatient (AMB) | payer OTHER, SELFPAY ==
[2023-10-02 13:51] VITALS: BP 102/62; PULSE 102; BMI 19.6
--- NOTE | 2023-10-02 13:51 | A.OFFVIS_ITS ---
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 Due to right bundle-branch block on the EKG, he underwent an echocardiogram and that showed inferolateral wall hypokinesis. Patient himself does not have any known cardiac issues. He gets some random chest pains but in no specific patterns. Can happen with or without exertion. [facility] Family History (Updated 10/02/23 @ 14:07 by Jose Blake MD) Father No problems noted. Mother No problems noted. Social History Alcohol intake: current Alcohol intake frequency: holidays/special occasions only Patient Tobacco Use Status: Current everyday Tobacco user Review of Systems Const Denies chills, Denies fatigue, Denies fever(s), Denies frequent falls, Denies weakness, Denies weight gain and Denies weight loss ENT Denies dizziness Card Denies chest pain, Denies leg edema, Denies lightheadedness, Denies palpitations, Denies dyspnea, Denies dyspnea on exertion and Denies orthopnea Resp Denies cough, Denies dyspnea and Denies dyspnea on exertion GI Denies bloating and Denies change in bowel habits Musc Denies muscle weakness, Denies numbness and Denies tingling Neuro Denies dizziness, Denies frequent falls, Denies numbness, Denies tingling and Denies weakness Endo Denies fatigue and Denies palpitations Physical Exam Vital Signs: Last Vital Signs Pulse 102 H 10/02/23 13:51 BP 102/62 10/02/23 13:51 BMI result Body Mass Index 19.6 Const General: comfortable and no acute distress Orientation/consciousness: patient oriented x3 HEENT Other: Unremarkable Head: Yes normal to inspection Neck Neck: Yes normal visual inspection Chest Chest palpation & inspection: normal inspection of the chest Resp Auscultation: clear to auscultation bilaterally Cardio Palpation: normal PMI Heart sounds: S1 normal heart sound present, S2 normal heart sound present, no gallops, no murmurs and no rubs GI Palpation (GI): Soft to palpation Back/Spine/Pelvis Other: unremarkable Skin General skin exam: no rashes or lesions noted Neuro General: patient oriented x3 Extrem General: Yes normal to inspection Psych Mental Status: mental status grossly normal Office Procedures EKG Details: EKG with sinus tachycardia at 01:02/Min; leftward axis; right bundle-branch block pattern. [id number], Complete Assessment & Plan Assessment & Plan (1) Abnormal echocardiogram: Code(s): R93.1 - Abnormal findings on diagnostic imaging of heart and coronary circulat ion Category: Medical (2) Right bundle branch block: Code(s): I45.10 - Unspecified right bundle-branch block Category: Medical Plan EKG shows right bundle-branch block patent. Echocardiogram shows preserved LVEF at 56%. Inferolateral wall thought to be hypokinetic. He does have chest pain but somewhat atypical. Based on the findings on EKGs/echocardiogram, can proceed with stress perfusion imaging study for further evaluation. Discussed with significant other. Orders: Orders CA stress test Today R07.2 - Precordial pain NM cardiolite stress test Today R07.2 - Precordial pain Coding Level of Care Code New Pt Level 4 (95920) Diagnoses Abnormal echocardiogram R93.1 Right bundle branch block I45.10 CPT Codes EKG - CPT: [id number]-[id number], Complete ([id number])
== END 2023-10-02 14:13 | disposition home or self-care (01) ==
PROVIDERS: PCP Internal Medicine; Visit Provider Internal Medicine
DX: R93.1 Abnormal findings on diagnostic imaging of heart and coronary circulation (principal); I45.10 Unspecified right bundle-branch block; R00.0 Tachycardia, unspecified
CPT/HCPCS: 93010; 99214

== ENCOUNTER → 2023-10-02 13:35 | Outpatient (BNVA) | payer OTHER, SELFPAY | PROVIDERS: PCP Internal Medicine; Visit Provider Internal Medicine | DX: I45.10 Unspecified right bundle-branch block (principal); R93.1 Abnormal findings on diagnostic imaging of heart and coronary circulation; R94.31 Abnormal electrocardiogram [ECG] [EKG]; R00.0 Tachycardia, unspecified | CPT/HCPCS: 93005; 99212 ==

== ENCOUNTER → 2023-12-11 08:10 | Outpatient (REF) | payer OTHER, SELFPAY ==
--- NOTE | ~2023-12-11 | NM_ITS ---
Lexiscan Myocardial perfusion study Indication: Coronary artery disease Technique: The patient was brought in for a Lexiscan perfusion study on 12/11/2023 and was injected 0.4 mg of Lexiscan intravenously. Within a minute of this injection 25 mCi of sestamibi was given intravenously. Images were obtained using the SPECT gamma camera interlaced with the gating device. Images were obtained in supine position. Resting perfusion study was performed on 12/12/2023. Patient was administered 25 mCi of sestamibi intravenously at rest. Images were then obtained in supine position. Images were processed with the software and compared side to side in short axis, horizontal long axis and vertical long axis views. Total DLP 64mGy-cm. Findings: Raw acquisition reviewed. The stress perfusion study showed subdiaphragmatic tracer uptake adjacent to the inferolateral wall and hence that area isn't well visualized. Seen in uncorrected as well as CT attenuation corrected images. The gated study shows normal LV systolic function with calculated LVEF of 65%. LV cavity is normal in size. The gated study shows normal wall thickening and contraction of segments. Resting study shows subdiaphragmatic tracer uptake adjacent to the inferolateral wall but otherwise unremarkable.. Gating at rest reveals normal wall motion with ejection fraction at 62%. The findings are consistent with no clear reversible or fixed perfusion defects. MS/MS cardiolite stress test Impression: 1. Myocardial perfusion imaging study shows probably normal myocardial perfusion. 2. Gated LVEF is 65% during stress and 60% during rest. 3. Transient ischemic dilatation not present. EKG component of the test reported separately.
--- NOTE | 2023-12-11 08:14 | CA_ITS ---
Acquisition Time: 2023-12-11 08:40:28 Total Exercise Time: 00:05:36 Test Indications: ABN EKG RBBB Medications: Protocol: DUARTE Max HR: 117 BPM 69% of Pred: 168 BPM Max BP: 142/072 mmHG Max Work Load: 7.0 METS Exercise stress test exercise 5 min 36 sec of Duarte protocol achieving 68% MPHR, with 2-3/10 mid to left sharp pain; limiting, mild SOB, and fatigue, with isolated PACs, with normotensive response to exercise, without EKGs at achieved workload. Chest pain resolved with rest. Test changes to pharmacological stress test. Pharmacolgical stress test with Lexiscan injection while walking slowly on the treadmill,. with 5/10 chest pain (descirbed as pounding heart), without arrhythmias, with normotensive resposne to injection, with nondiagnoisitic EKGs. Aminophylline 75mg IVP given to reverse Lexiscan. Chest pain resolved. Nuclear images pending. Tets reviewed with Dr. Calvert. Referred By: Jose Blake Overread By: Ashleigh Murphy
== END ==
LOC: HO.CARD 08:10
PROVIDERS: PCP Internal Medicine; Visit Provider Internal Medicine
DX: R07.2 Precordial pain (principal)
CPT/HCPCS: 78452; 93017; A9500; J0280; J2785

== ENCOUNTER → 2023-12-11 08:14 | Outpatient (BNV) | payer OTHER, SELFPAY | PROVIDERS: PCP Internal Medicine; Visit Provider Nurse Practitioner | DX: I25.10 Atherosclerotic heart disease of native coronary artery without angina pectoris (principal) | CPT/HCPCS: 78452; 93016; 93018 ==

== ENCOUNTER 2023-12-19 10:30 | Outpatient (AMB) | payer OTHER, SELFPAY ==
--- NOTE | 2023-12-19 10:40 | MHC.OFFVIS ---
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 He underwent an echocardiogram because of right bundle-branch block on the EKG. Echocardiogram then showed inferolateral hypokinesis. Following this, he underwent a stress test. Patient states that he gets chest pains off and on. With and without exertion. On 1 occasion in September, he developed chest pain and then following day, he threw up. Unclear if it was a coronary event or not. Otherwise, no known coronary disease in the past. He states he did use drugs including cocaine and heroin but nothing in the last few years. [facility] Family History Father No problems noted. Mother No problems noted. Social History Alcohol intake: current Alcohol intake frequency: holidays/special occasions only Patient Tobacco Use Status: Current everyday Tobacco user Review of Systems Const Denies chills, Denies fatigue, Denies fever(s), Denies weight gain and Denies weight loss ENT Denies dizziness Card Denies chest pain, Denies leg edema, Denies lightheadedness, Denies palpitations, Reports dyspnea, Denies dyspnea on exertion, Denies orthopnea and Denies other Resp Denies cough, Reports dyspnea and Denies dyspnea on exertion GI Denies hematochezia and Denies change in stool character Musc Denies abnormal gait, Denies muscle weakness, Denies numbness, Denies radiating pain into limb and Denies tingling Neuro Denies abnormal gait, Denies dizziness, Denies numbness and Denies tingling Endo Denies fatigue and Denies palpitations Physical Exam Vital Signs: Last Vital Signs Pulse 83 12/19/23 10:49 BP 94/56 L 12/19/23 10:49 BMI result Body Mass Index 19.7 Const General: comfortable and no acute distress Orientation/consciousness: patient oriented x3 HEENT Other: Unremarkable Head: Yes normal to inspection Neck Neck: Yes normal visual inspection Chest Chest palpation & inspection: normal inspection of the chest Resp Auscultation: clear to auscultation bilaterally Cardio Palpation: normal PMI Heart sounds: S1 normal heart sound present, S2 normal heart sound present, no gallops, no murmurs and no rubs GI Palpation (GI): Soft to palpation Back/Spine/Pelvis Other: unremarkable Skin General skin exam: no rashes or lesions noted Neuro General: patient oriented x3 Extrem General: Yes normal to inspection Psych Mental Status: mental status grossly normal Assessment & Plan Assessment & Plan (1) Abnormal echocardiogram: Code(s): R93.1 - Abnormal findings on diagnostic imaging of heart and coronary circulation Category: Medical (2) Right bundle branch block: Code(s): I45.10 - Unspecified right bundle-branch block Category: Medical Plan Cardiac studies reviewed. EKG shows right bundle-branch block patent. Echocardiogram shows preserved LVEF at 56%. Inferolateral wall thought to be hypokinetic. In the ETT portion of stress test, he reached only 68% of target heart rate but had left-sided chest pain. Then it seems he was switched over to Lexiscan. There was subdiaphragmatic uptake along the inferolateral wall during stress and rest but otherwise, there was no significant finding. Overall, possible prior inferolateral infarct but not clear if it is something over the last few months or rather remote related to history of substance abuse. We discussed about further plan including diagnostic catheterization and he is agreeable with that. Also discussed with significant other. We can plan that in the near future. Based on the findings, we can plan further. Orders: Orders Basic Metabolic Panel Today I25.10 - Atherosclerotic heart disease of [place] coronary artery without angina pectoris Lipid Panel Today E78.5 - Hyperlipidemia, unspecified Cardiac Cath LT Diagnostic Today I25.10 - Atherosclerotic heart disease of [place] coronary artery without angina pectoris Complete Blood Count no Diff Today I25.10 - Atherosclerotic heart disease of [place] coronary artery without angina pectoris Prothrombin Time INR Today I25.10 - Atherosclerotic heart disease of [place] coronary artery without angina pectoris Liver Panel Today I25.10 - Atherosclerotic heart disease of [place] coronary artery without angina pectoris Coding Level of Care Code Est Pt Level 4 (34865) Diagnoses Abnormal echocardiogram R93.1 Right bundle branch block I45.10
[2023-12-19 10:49] VITALS: BP 94/56; PULSE 83; BMI 19.7
== END 2023-12-19 11:15 | disposition home or self-care (01) ==
PROVIDERS: PCP Internal Medicine; Visit Provider Internal Medicine
DX: R93.1 Abnormal findings on diagnostic imaging of heart and coronary circulation (principal); I45.10 Unspecified right bundle-branch block
CPT/HCPCS: 99214

== ENCOUNTER → 2023-12-19 10:30 | Outpatient (BNVA) | payer OTHER, SELFPAY | PROVIDERS: PCP Internal Medicine; Visit Provider Internal Medicine | DX: I45.10 Unspecified right bundle-branch block (principal); I25.10 Atherosclerotic heart disease of native coronary artery without angina pectoris; R93.1 Abnormal findings on diagnostic imaging of heart and coronary circulation; E78.5 Hyperlipidemia, unspecified | CPT/HCPCS: 99212 ==

== ENCOUNTER 2023-12-26 12:49 | Outpatient (REF) | payer OTHER, SELFPAY ==
[2023-12-26 13:05] LABS: MANUAL DIFF FLAG NO
[2023-12-26 13:39] LABS: Basophils Absolute Auto 0.1 X10*3/uL (0.0-0.2); Basophils Percent Auto 0.6 % (0-2); Eosinophils Absolute Auto 0.1 X10*3/uL (0.0-0.4); Eosinophils Percent Auto 1.3 % (0-4); Hematocrit 39.1 % (42.0-52.0); Hemoglobin 12.9 g/dl (14.0-18.0); Imm Gran Abs Auto 0.05 X10*3/uL (0.00-0.03); Imm Gran Pct Auto 0.5 % (0.0-0.4); Lymphocytes Absolute Auto 2.1 X10*3/uL (1.2-4.9); Lymphocytes Percent Auto 22.5 % (20-40); Mean Corpuscular Hemoglobin 30.4 pg (27.0-33.0); Mean Platelet Volume 10.9 fL (9.4-12.4); Monocytes Absolute Auto 0.8 X10*3/uL (0.1-1.2); Neutrophils Absolute Auto 6.2 x10*3/uL (2.0-8.3); Neutrophils Percent Auto 67.1 % (45-73); Platelet Count 264 X10*3/uL (160-400); Red Blood Count 4.25 X10*6/uL (4.60-5.80); White Blood Count 9.3 X10*3/uL (4.8-10.8)
[2023-12-26 13:49] LABS: INTERNATIONAL NORM RATIO 0.9 (0.9-1.1); Prothrombin Time 10.6 SEC (11.1-13.3)
[2023-12-26 14:36] LABS: Alanine Aminotransferase 30 U/L (0-40); Albumin Level 4.2 g/dL (3.5-5.0); Alkaline Phosphatase 96 U/L (39-117); Anion Gap 14 (12-20); Aspartate Amino Transferase 37 U/L (5-37); Bilirubin Direct < 0.2 mg/dL (0.0-0.5); Bilirubin Total 0.2 mg/dL (0.0-1.0); Blood Urea Nitrogen 15 mg/dL (9-16); C Reactive Protein 0.96 mg/dL (< or = 0.50); Calcium 9.3 mg/dL (8.4-10.2); Carbon Dioxide 27 mmol/L (22-29); Chloride 102 mmol/L (96-108); Cholesterol 250 mg/dL (<200); Estimated Glomerular Filt Rate > 60; Glucose Random 114 mg/dL (60-115); HDL Cholesterol 52 mg/dL (>40); Iron 71 mcg/dL (45-160); LDL Cholesterol Calculated 156 mg/dL (<100); Percent Iron Saturation 24 % (15-50); Potassium 4.4 mmol/L (3.3-5.1); Sodium 139 mmol/L (135-145); Total Iron Binding Capacity 299 mcg/dL (228-428); Total Protein 7.4 g/dL (6.5-8.0); Triglycerides 214 mg/dL (<150); Unsaturated Iron Binding 228 ug/dL
== END 2023-12-26 12:50 | disposition home or self-care (01) ==
LOC: HO.LAB 12:49
PROVIDERS: Internal Medicine; PCP Internal Medicine; Visit Provider Internal Medicine
DX: R53.83 Other fatigue (principal); E78.5 Hyperlipidemia, unspecified; I25.10 Atherosclerotic heart disease of native coronary artery without angina pectoris; D64.9 Anemia, unspecified
CPT/HCPCS: 36415; 80048; 80061; 80076; 82550; 83540; 85025; 85610; 86140

== ENCOUNTER → 2024-01-10 23:59 | Outpatient (BNV) | payer OTHER, SELFPAY | PROVIDERS: PCP Internal Medicine; Visit Provider Internal Medicine Cardiovascular Disease | DX: R93.1 Abnormal findings on diagnostic imaging of heart and coronary circulation (principal) | CPT/HCPCS: 93458; 99152 ==

== ENCOUNTER 2024-01-24 09:02 | Outpatient (AMB) | payer OTHER, SELFPAY ==
[2024-01-24 09:10] VITALS: BP 94/54; PULSE 68; BMI 20.3
--- NOTE | 2024-01-24 09:10 | A.OFFVIS_ITS ---
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 Allergies No Known Allergies [No Known Allergies*] Allergy (Verified 01/24/24 09:13) Medication List - Last Reconciled 01/24/24 by Maria Teresa Melendez NP-C amitriptyline 10 mg PO BEDTIME 30 days baclofen 10 mg PO BEDTIME clonazepam 1 mg PO BID furosemide 20 mg PO DAILY magnesium oxide 400 mg PO BEDTIME 30 days omeprazole 20 mg PO QAM riboflavin (vitamin B2) 400 mg PO DAILY 90 days HPI HPI 2 wk s/p cath: Details: Joseph is a 53-year-old male with past medical history of prior cocaine use, hyperlipidemia, right bundle branch block who recently had echocardiogram and nuclear stress test which did show abnormalities. He underwent diagnostic cardiac catheterization and now presents for follow-up. Today he reports that since his procedure he has been having some discomfort in his left hip region. His states that he had the cardiac catheterization in the right groin and was favoring that leg. She has checked the left hip area and finds no bruising or swelling. She has been rubbing lotion on it and using ice. Patient denies having any fall or injury to that area. Right groin is feeling well. Right radial catheterization attempted catheterization site well healed. No reports of chest discomfort at rest or with activity. No concerning shortness of breath, PND, orthopnea or edema. No lightheadedness, presyncope, syncope. Takes his meds as directed. Denies any cocaine use. is present. [facility] Family History Father No problems noted. Mother No problems noted. Social History Alcohol intake: current Alcohol intake frequency: holidays/special occasions only Patient Tobacco Use Status: Current everyday Tobacco user Review of Systems Const All systems reviewed & are unremarkable except as noted in HPI and below ENT Denies dizziness Card Denies chest pain, Denies chest pain at rest, Denies chest pain with activity, Denies rapid heart rate, Denies pedal edema, Denies edema, Denies leg edema, Denies lightheadedness, Denies palpitations, Denies dyspnea, Denies dyspnea on exertion and Denies orthopnea Resp Denies cough, Denies dyspnea and Denies dyspnea on exertion GI Denies hematochezia and Denies change in stool character Musc Details: right groin and right radial cath sites feeling good Reports abnormal gait (pain left lateral hip), Denies limited range of motion, Denies muscle cramps, Denies muscle weakness, Denies numbness, Denies radiating pain into limb, Denies stiffness and Denies tingling Neuro Reports abnormal gait (pain left lateral hip), Denies dizziness, Denies numbness and Denies tingling Endo Denies palpitations Physical Exam Vital Signs: Last Vital Signs Pulse 68 01/24/24 09:10 BP 94/54 L 01/24/24 09:10 BMI result Body Mass Index 20.3 Const General: cooperative, healthy appearing, comfortable and no acute distress Orientation/consciousness: patient oriented x3 Neck Neck: Yes normal visual inspection and Yes no JVD Resp Effort & Inspection: normal respiratory effort Auscultation: clear to auscultation bilaterally, no rales, no rhonchi and no wheezes Cardio Jugular venous distension: no JVD Rate: regular rate Rhythm: regular rhythm Heart sounds: S1 normal heart sound present, S2 normal heart sound present, no murmurs and no rubs Neuro General: patient oriented x3 Extrem Other: localized tenderness to palpation of left lateral hip, bursa area. Right femoral site well healed, palpable femoral artery, no bruit. Right radial cath site well healed, palpable radial pulse, hand assessment normal Psych Appearance: grossly normal Mental Status: mental status grossly normal Speech and movement: Normal speech and movement present Assessment & Plan Assessment & Plan (1) Abnormal echocardiogram: Code(s): R93.1 - Abnormal findings on diagnostic imaging of heart and coronary circulation Category: Medical Plan: Cardiac evaluation for EKG showing right bundle branch block. He underwent an echocardiogram on 09/21/2023 which showed EF 56%, inferior lateral wall hypokinetic, no valve abnormalities. This led to a nuclear stress test on 12/12/2023 showing subdiaphragmatic tracer uptake adjacent to the inferior lateral wall but otherwise unremarkable. For further evaluation he had a diagnostic cardiac catheterization on 01/10/2024 showing normal coronaries with mid LAD bridging. Test results reviewed with him in detail. He does have a history of cocaine use but denies any recent use of this substance. It is possible that he did have a coronary spasm in the past creating small infarct which can account for the EKG and stress abnormalities. At this time he has no anginal sounding symptoms. Cardiac risk factor modification reviewed with him. Recent labs did show LDL 156. Not on statin therapy. Will start on atorvastatin 20 mg daily. Plan for recheck of fasting lipids, liver profile in 6-8 weeks. He says he was put on Lasix but is not clear of the reason why. He has been noticing some lightheadedness and his has been only giving him half a tablet. His echo shows a normal EF and he has no evidence of fluid overload on examination. Blood pressure is low at 94/54. Will have him stop Lasix. Cardiology follow-up 6 months, sooner if needed. (2) S/P cardiac cath: Comment: 01/10/2024, left main, left circumflex, RCA all normal, lad normal with mid LAD bridging noted. Code(s): Z98.890 - Other specified postprocedural states Category: Surgical Plan: Right radial and right femoral sites well healed. (3) Right bundle branch block: Code(s): I45.10 - Unspecified right bundle-branch block Category: Medical Plan: Present on EKG (4) Hyperlipidemia: Code(s): E78.5 - Hyperlipidemia, unspecified Category: Medical Plan: [place] LDL goal less than 100. See above. Plan Time spent on chart review, documentation, interview and assessment Orders: Orders Liver Panel 6 Weeks E78.5 - Hyperlipidemia, unspecified Lipid Panel 6 Weeks E78.5 - Hyperlipidemia, unspecified Medications: New atorvastatin 20 mg PO BEDTIME 30 tabs 5RF Coding Level of Care Code Est Pt Level 4 (31761) Diagnoses Abnormal echocardiogram R93.1 S/P cardiac cath Z98.890 Right bundle branch block I45.10 Hyperlipidemia E78.5 Time Spent (min) 28
== END 2024-01-24 09:48 | disposition home or self-care (01) ==
PROVIDERS: PCP Internal Medicine; Visit Provider Nurse Practitioner Family
DX: R93.1 Abnormal findings on diagnostic imaging of heart and coronary circulation (principal); Z98.890 Other specified postprocedural states; I45.10 Unspecified right bundle-branch block; E78.5 Hyperlipidemia, unspecified
CPT/HCPCS: 99214

== ENCOUNTER → 2024-01-24 09:02 | Outpatient (BNVA) | payer OTHER, SELFPAY | PROVIDERS: PCP Internal Medicine; Visit Provider Nurse Practitioner Family | DX: I45.10 Unspecified right bundle-branch block (principal); E78.5 Hyperlipidemia, unspecified; R93.1 Abnormal findings on diagnostic imaging of heart and coronary circulation; Z98.890 Other specified postprocedural states | CPT/HCPCS: 99212 ==

== ENCOUNTER 2024-05-13 06:51 | Outpatient (REF) | payer OTHER, SELFPAY ==
[2024-05-13 09:11] LABS: Appearance Urine Clear; Color Urine Dark Yellow; Glucose Urine UA Negative (Negative); Leukocyte Esterase Urine Negative (Negative); Nitrite Urine Negative (Negative); PH 5.5 (5.0-9.0); Urine Blood Negative (Negative); Urine Ketones Negative (Negative); Urine Protein Negative (Neg-Trace)
== END 2024-05-13 06:52 | disposition home or self-care (01) ==
LOC: HO.LAB 06:51
PROVIDERS: PCP Internal Medicine; Visit Provider Internal Medicine
DX: R30.0 Dysuria (principal)
CPT/HCPCS: 81003; 87086

== ENCOUNTER → 2024-07-09 07:58 | Outpatient (BNVA) | payer OTHER, SELFPAY | PROVIDERS: PCP Internal Medicine; Visit Provider Nurse Practitioner Family | DX: N52.9 Male erectile dysfunction, unspecified (principal); R39.15 Urgency of urination; Z87.898 Personal history of other specified conditions | CPT/HCPCS: 81003; 99202 ==

== ENCOUNTER 2024-07-30 08:21 | Outpatient (AMB) | payer OTHER, SELFPAY ==
--- NOTE | 2024-07-30 08:32 | A.OFFVIS_ITS ---
Vital Signs 07/30/24 08:34 Height 5 ft 7 in Weight 143 lb BMI 22.4 BP 90/80 Blood Pressure Location Lt brachial Position Sitting Pulse 68 Pulse Source Pulse Oximeter Pulse Oximetry (%) 96 Oxygen Delivery Method Room Air Intake Visit Reasons: f/u appt Intake Note: Patient presents follow up concussion/headache. 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 Following a work-related concussion two years ago, the patient has experienced daily migraines, light and noise sensitivity, irritability, and nausea, requiring frequent use of Aleve. Cognitive deficits, including memory loss and difficulty with familiar tasks, have led to occupational challenges and subsequent unemployment. Attempts at cognitive rehabilitation have not shown benefits, and vertigo complicates his clinical picture. The patient displays significant anxiety, particularly related to claustrophobic experiences such as attempting an MRI. This anxiety is compounded by difficulty in adhering to treatments due to medical phobias. He reports a probable myocardial infarction within the past year with cardiac catheterization findings of segmental dysfunction, contributing to erectile dysfunction concerns post-procedure. In addition, the patient is on cholesterol- lowering medication to manage elevated cholesterol levels. Sleep disturbances further exacerbate his overall condition, with a pattern of mid-night awakenings resistant to amitriptyline, attempted for sleep aid. Recently, he incurred a thumb injury, resulting in swelling and potential infection, though hospital aversion delayed initial care. Review of Systems- Neurological: Reports dizziness, lightheadedness. - HEENT: Reports bilateral pounding headaches. - Cardiovascular: Reports resolved mild myocardial dysfunction post-infarction. - Gastrointestinal: Reports chronic nausea, past stomach issues. - Musculoskeletal: Reports thumb injury with swelling. - Genitourinary: Reports erectile dysfunction post-catheterization. - Psychiatric: Reports anxiety, paranoia, sleep disturbances. [facility] Family History Father No problems noted. Mother No problems noted. Social History Alcohol intake: former Patient Tobacco Use Status: Current everyday Tobacco user Physical Exam Vital Signs: Last Vital Signs Pulse 68 07/30/24 08:34 BP 90/80 07/30/24 08:34 Pulse Ox 96 07/30/24 08:34 Oxygen Delivery Method Room Air 07/30/24 08:34 BMI result Body Mass Index 22.4 Const General: cooperative and no acute distress Orientation/consciousness: patient oriented x3 Resp Effort & Inspection: normal respiratory effort and able to speak in complete sentences Neuro Other: - Appearance: Appropriate appearance for age; cooperative. - Mood and Affect: Exhibits anxiety; mood dysregulated concerning past trauma and sleep disturbance. - Orientation: Oriented to person, place, and time. - Cognition: Notable cognitive impairments, including memory deficits; diminished attention. - Thought Process: Logical thought flow; apparent displacement in reasoning possibly related to the anxiety. General: patient oriented x3 Cranial nerves: Yes CN's II-XII intact bilaterally Psych Appearance: grossly normal Speech and movement: Normal speech and movement present Attitude: cooperative Assessment & Plan Assessment & Plan (1) Cognitive dysfunction: Code(s): F09 - Unspecified mental disorder due to known physiological condition Category: Medical (2) Migraine without aura: Code(s): G43.009 - Migraine without aura, not intractable, without status migrainosus Category: Medical (3) Postconcussive syndrome: Code(s): F07.81 - Postconcussional syndrome Category: Medical Plan Discussion Notes During this visit, we discussed the need for brain w/wo contrast due to ongoing headcahes and dizziness s/p head injury. I recommended utilizing alprazolam to manage the MRI anxiety, ensuring the MRI execution with minimal discomfort. We discussed benefits of optimizing management of migraine headcaheto prevent further chronification. I advised initiating treatment with Ubrelvy pending prior authorization, care with [id number] non-steroidal anti-inflammatory medications, and the possibility of cognitive rehabilitation re-evaluation post- migraine control. We reviewed the importance of regular cardiological evaluations regarding prior myocardial findings and ongoing management of elevated cholesterol levels via Crestor. The patient was advised to approach the urgent care for the infected thumb injury to prevent complications. Lifestyle strategies were discussed to address low blood pressure symptoms. Continued communication will be ensured to promptly address any concerns or medication adjustments in the interim until the next scheduled visit. Patient was informed and verbally consented to the use of an ambient scribe for clinic note documentation during this visit. Plan For thumb injury: - Seek urgent care for thumb injury evaluation, especially if swelling or redness increases, to prevent infection. For ongoing headaches, dizziness, cognitive and mood difficulties s/p head injury: - Brain MRI w/wo to assess for secondary etiologies. - Take prescribed alprazolam prior to MRI to manage anxiety and proceed with rescheduled MRI. - Continue to try to optimize CV risk factors, thus continue statin and f/u w/ cardiology as scheduled. - Use lifestyle modifications to assist with lightheaded episodes. - Follow any dietary or hydration recommendations, ensuring adequate fluid and sodium intake. - Follow-up with urology for ongoing assessment of erectile dysfunction. For migraine prevention: - Riboflavin 400mg qam - Magnesium 400mg qhs. - Increase Amitriptyline to 25mg daily at bedtime. Potential side effects include but are not limited to fatigue, cardiac arrhythmias, mood changes. For acute tx of migraine headache: - Trial Ubrogepant (Ubrelvy) 100mg tab, 1/2 - 1 tab (50-100mg) at onset of migraine headache, may repeat in 2 hours. Max of 2 tabs (200mg) per 24 hours. May adjunct with OTC Tylenol 650mg q 4 hours, Ibuprofen 600mg q 6 hours, or Naproxen 440mg q 12 hrs prn. Potential adverse effects, include but are not limited to fatigue, nausea, dry mouth, constipation - Report any worsening symptoms or other concerns promptly. Orders: Orders MR head/brain wo/w con 07/30/24 R51.9 - Headache, unspecified, S06.0XAA - Concussion with loss of consciousness status unknown, initial encounter, R42 - Dizziness and giddiness, R26.89 - Other abnormalities of gait and mobility, F09 - Unspecified mental disorder due to known physiological condition Medications: New amitriptyline 25 mg PO BEDTIME 30 tabs 3RF 30 days ubrogepant (Ubrelvy) take at onset of migraine, may repeat in 2hrs (may take w/ Aleve) 50 - 100 mg (0.5 - 1 x 100 mg) PO ONCE PRN 16 tabs 3RF migraine headache 30 days Changed From magnesium oxide 400 mg PO BEDTIME 30 days 30 tabs 6RF To magnesium oxide 400 mg PO BEDTIME 90 tabs 3RF 90 days Refilled riboflavin (vitamin B2) 400 mg PO DAILY 90 tabs 3RF 90 days Discontinued amitriptyline Discontinued Reason: Doctor's Order 10 mg PO BEDTIME 30 days 30 tabs 6RF Coding Level of Care Code Est Pt Level 4 (31079) Diagnoses Cognitive dysfunction F09 Migraine without aura G43.009 Postconcussive syndrome F07.81
[2024-07-30 08:34] VITALS: BP 90/80; PULSE 68; O2SAT 96; BMI 22.4
--- OUTSIDE RECORDS SUMMARY | 2024-07-30 08:52 | XMS_ITS | Patient Health Record ---
Author Organization Ivan Schultz MD Address [address] [address] REASON FOR REFERRAL No Information PLAN OF TREATMENT No Information
== END 2024-07-30 09:37 | disposition home or self-care (01) ==
PROVIDERS: PCP Internal Medicine; Visit Provider Nurse Practitioner Family
DX: R41.89 Other symptoms and signs involving cognitive functions and awareness (principal); G44.309 Post-traumatic headache, unspecified, not intractable; F07.81 Postconcussional syndrome
CPT/HCPCS: 99214

== ENCOUNTER → 2024-07-30 08:21 | Outpatient (BNVA) | payer OTHER, SELFPAY | PROVIDERS: PCP Internal Medicine; Visit Provider Nurse Practitioner Family | DX: F07.81 Postconcussional syndrome (principal); G43.709 Chronic migraine without aura, not intractable, without status migrainosus; R55 Syncope and collapse; F09 Unspecified mental disorder due to known physiological condition | CPT/HCPCS: 99212 ==

== ENCOUNTER 2024-08-15 08:33 | Outpatient (AMB) | payer OTHER, SELFPAY ==
--- OUTSIDE RECORDS SUMMARY | 2024-08-15 08:46 | XMS_ITS | Patient Health Record ---
Author Organization Ivan Schultz MD Address [address] [address] REASON FOR REFERRAL No Information PLAN OF TREATMENT No Information
[2024-08-15 08:55] VITALS: BP 88/50; PULSE 64; BMI 22.7
--- NOTE | 2024-08-15 08:55 | A.OFFVIS_ITS ---
Vital Signs 08/15/24 08:55 Height 5 ft 7 in Weight 145 lb 1.027 oz BMI 22.7 BP 88/50 L Blood Pressure Location Lt brachial Position Sitting Pulse 64 Pulse Source Pulse Oximeter Intake Visit Reasons: rs 6 month f/u Intake Note: Pt c/o of sweating x 4 months. 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: No Accompanied by: Spouse Allergies No Known Allergies [No Known Allergies*] Allergy (Verified 07/30/24 08:35) Medication List - Last Reconciled 08/15/24 by Maria Teresa Melendez NP-C amitriptyline 25 mg PO BEDTIME 30 days atorvastatin 20 mg PO BEDTIME baclofen 10 mg PO BEDTIME clonazepam 1 mg PO BID magnesium oxide 400 mg PO BEDTIME 90 days omeprazole 40 mg PO DAILY riboflavin (vitamin B2) 400 mg PO DAILY 90 days rosuvastatin (Crestor) 10 mg PO DAILY tadalafil (Cialis) 5 mg PO DAILY 90 days ubrogepant (Ubrelvy) 50 - 100 mg (0.5 - 1 x 100 mg) PO ONCE PRN 30 days HPI HPI rs 6 month f/u: Details: Joseph is a 54-year-old male with past medical history of prior cocaine use, hyperlipidemia, right bundle branch block who presents for follow-up. Today he reports that for the last 4 months he has had issues with lightheadedness and sweating. His symptoms are now happening daily. He describes him as hot flashes however he feels like he is going to faint with them. He has not had any fainting episodes or falls. His blood pressure is running low. He said he recently had it checked in the top number was in the 60s. He has been trying to increase his fluid intake and drink some Gatorade each day. He has no chest discomfort at rest or with activity. No shortness of breath, PND, orthopnea or edema. Takes his meds as directed. Denies any cocaine use. is present. [facility] Family History Father No problems noted. Mother No problems noted. Social History Alcohol intake: former Patient Tobacco Use Status: Current everyday Tobacco user Review of Systems Const All systems reviewed & are unremarkable except as noted in HPI and below Denies chills, Denies fatigue, Denies fever(s), Denies weight gain and Denies weight loss ENT Details: diaphoretic episodes Reports dizziness Card Denies chest pain, Denies leg edema, Denies lightheadedness, Denies palpitations, Reports dyspnea on exertion, Denies orthopnea and Denies other Resp Denies cough and Reports dyspnea on exertion GI Denies hematochezia and Denies change in stool character Musc Denies abnormal gait, Denies muscle weakness, Denies numbness, Denies radiating pain into limb and Denies tingling Neuro Denies abnormal gait, Reports dizziness, Denies numbness and Denies tingling Endo Denies fatigue and Denies palpitations Physical Exam Vital Signs: Last Vital Signs Pulse 64 08/15/24 08:55 BP 88/50 L 08/15/24 08:55 BMI result Body Mass Index 22.7 Const General: cooperative, healthy appearing, comfortable and no acute distress Orientation/consciousness: patient oriented x3 Neck Neck: Yes normal visual inspection and Yes no JVD Resp Effort & Inspection: normal respiratory effort Auscultation: clear to auscultation bilaterally, no rales and no rhonchi Cardio Rate: regular rate Rhythm: regular rhythm Heart sounds: S1 normal heart sound present, S2 normal heart sound present, no gallops, no murmurs and no rubs Neuro General: patient oriented x3 Extrem General: Yes normal to inspection, No no pedal edema and No calf tenderness Psych Appearance: grossly normal Mental Status: mental status grossly normal Speech and movement: Normal speech and movement present Assessment & Plan Assessment & Plan (1) Hypotension: Code(s): I95.9 - Hypotension, unspecified Category: Medical Plan: Blood pressure runs low with systolic mostly in the 90s. He tells me he had recent blood pressure check in 1 office and his systolic was in the 60s. His blood pressure check done by me today was 88/50 sitting. His blood pressure was difficult to hear when standing. He was also experiencing lightheadedness. He is describing sweating episodes which sound like presyncope. He is on medications that can cause hypotension and orthostatic hypotension including amitriptyline, baclofen and clonazepam. Will send message to the ordering provider to see if is typical for these meds to cause this problem. Tadalafil is on his list however he said it was never approved by the insurance. Will update an echocardiogram and Holter monitor on him. I am considering the use of midodrine. I gave him a pair of compression stockings from our office stock and instructed on their use. Instructed to increase fluid intake to greater than 64 oz daily and add salt to his diet. Use caution when going sitting to standing. Emergency care if needed for symptoms. Cardiology follow-up 6 weeks, sooner if needed (2) Abnormal echocardiogram: Code(s): R93.1 - Abnormal findings on diagnostic imaging of heart and coronary circulation Category: Medical Plan: Cardiac evaluation for EKG showing right bundle branch block. He underwent an echocardiogram on 09/21/2023 which showed EF 56%, inferior lateral wall hypokinetic, no valve abnormalities. This led to a nuclear stress test on 12/12/2023 showing subdiaphragmatic tracer uptake adjacent to the inferior lateral wall but otherwise unremarkable. For further evaluation he had a diagnostic cardiac catheterization on 01/10/2024 showing normal coronaries with mid LAD bridging. Test results reviewed with him in detail. He does have a history of cocaine use but denies any recent use of this substance. It is possible that he did have a coronary spasm in the past creating small infarct which can account for the EKG and stress abnormalities. Currently no anginal symptoms. Continue atorvastatin with LDL goal less than 100, ideally less than 70. Recommend repeat fasting lipid profile. (3) S/P cardiac cath: Comment: 01/10/2024, left main, left circumflex, RCA all normal, lad normal with mid LAD bridging noted. Code(s): Z98.890 - Other specified postprocedural states Category: Surgical (4) Right bundle branch block: Code(s): I45.10 - Unspecified right bundle-branch block Category: Medical Plan: Present on EKG (5) Hyperlipidemia: Code(s): E78.5 - Hyperlipidemia, unspecified Category: Medical Plan: [place] LDL goal less than 100. See above. Plan Time spent on chart review, documentation, interview and assessment Orders: Orders CA echo transthoracic complete Today I45.10 - Unspecified right bundle-branch block, I95.9 - Hypotension, unspecified ECG 3 day holter monitor Today R42 - Dizziness and giddiness Coding Level of Care Code Est Pt Level 4 (42887) Complex EM visit Add On G2211 Diagnoses Hypotension I95.9 Abnormal echocardiogram R93.1 S/P cardiac cath Z98.890 Right bundle branch block I45.10 Hyperlipidemia E78.5 Time Spent (min) 32
== END 2024-08-15 09:42 | disposition home or self-care (01) ==
LOC: HO.HCS 08:33
PROVIDERS: PCP Internal Medicine; Visit Provider Nurse Practitioner Family
DX: I95.9 Hypotension, unspecified (principal); R93.1 Abnormal findings on diagnostic imaging of heart and coronary circulation; Z98.890 Other specified postprocedural states; I45.10 Unspecified right bundle-branch block; E78.5 Hyperlipidemia, unspecified
CPT/HCPCS: 99214; G2211

== ENCOUNTER → 2024-08-15 08:33 | Outpatient (BNVA) | payer OTHER, SELFPAY | PROVIDERS: PCP Internal Medicine; Visit Provider Nurse Practitioner Family | DX: I95.9 Hypotension, unspecified (principal); I45.10 Unspecified right bundle-branch block; R93.1 Abnormal findings on diagnostic imaging of heart and coronary circulation; E78.5 Hyperlipidemia, unspecified; Z98.890 Other specified postprocedural states | CPT/HCPCS: 99212 ==

== ENCOUNTER 2024-09-12 10:40 | Outpatient (AMB) | payer OTHER, SELFPAY ==
[2024-09-12 10:55] VITALS: BP 118/70; PULSE 87; TEMP 36.6; O2SAT 98; BMI 22.9
--- NOTE | 2024-09-12 10:55 | A.OFFPC_ITS ---
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: No Accompanied by: Self / Same As Patient Allergies No Known Allergies [No Known Allergies*] Allergy (Verified 09/12/24 10:56) Medication List - Last Reconciled 09/12/24 by Ashley Langston MD amitriptyline 25 mg PO BEDTIME 30 days baclofen 10 mg PO BEDTIME clonazepam 1 mg PO BID magnesium oxide 400 mg PO BEDTIME 90 days omeprazole 40 mg PO DAILY riboflavin (vitamin B2) 400 mg PO DAILY 90 days rosuvastatin (Crestor) 10 mg PO DAILY sertraline 25 mg PO DAILY tadalafil (Cialis) 5 mg PO DAILY 90 days Tobacco use date assessed: 09/12/24 Dental Screening Dental Screen Date: 09/12/24 Did you have a dental visit in the last 12 months?: No Did you have a dental problem in the last 6 months where you did not have access to dental care?: No HPI HPI Comments History of Present Illness Details 54 year old male with a past medical his tory of migraine, cognitive impairment, concussion, hyperlipidemia, CAD, hyperlipidemia, insomnia, GERd presenting for follow up. Last seen by PCP in Jun Neuro: chronic migraine and cognitive impairment in the context of post- concussion syndrome. Following a work-related concussion two years ago, the patient has experienced daily migraines, light and noise sensitivity, irritability, and nausea, requiring frequent use of Aleve. Cognitive deficits, including memory loss and difficulty with familiar tasks, have led to occupational challenges and subsequent unemployment. Attempts at cognitive rehabilitation have not shown benefits, and vertigo complicates his clinical picture. Anxiety: Not well controlled on clonazepam twice daily. Is open to daily control medication. CAD: following with cardiology. On rosuvastatin Urology: Bladder retention, dysuria, ED. Following with urology. Remote colonoscopy. Declines repeat. ok for cologuard ROS CONSTITUTIONAL: Denies weight loss, fever and chills. HEENT: Denies changes in vision and hearing. RESPIRATORY: Denies SOB and cough. CV: Denies palpitations and CP GI: Denies abdominal pain, nausea, vomiting and diarrhea. : Denies dysuria and urinary frequency. MSK: Denies new myalgia and joint pain. SKIN: Denies rash and pruritus. NEUROLOGICAL: Denies headache PSYCHIATRIC: Denies recent changes in mood. PHYSICAL EXAM: GENERAL: Alert and oriented x 3. NAD EYES: EOMI. Anicteric. HENT: Moist mucous membranes. No scleral icterus. No cervical lymphadenopathy. LUNGS: Clear to auscultation bilaterally. CARDIOVASCULAR: Regular rate and rhythm. No murmur. No JVD. ABDOMEN: Soft, non-tender +bs EXTREMITIES: No edema. Non-tender. SKIN: No rashes or lesions. Warm. NEUROLOGIC: No focal neurological deficits. CN II-XII grossly intact PSYCHIATRIC: Cooperative. Appropriate mood and affect [facility] Family History Father No problems noted. Mother No problems noted. Social History Housing: House Alcohol intake: former Patient Tobacco Use Status: Current everyday Tobacco user e-Cigarette/Vaping Use: Currently Using service: No Current occupational status: retired Cognitive needs: No Hearing needs: No Vision needs: No Questionnaire PHQ-9 Over the last 2 weeks, how often have you been bothered by any of the following problems? 1. Little interest or pleasure in doing things: not at all 2. Feeling down, depressed, or hopeless: not at all 3. Trouble falling or staying asleep, or sleeping too much: not at all 4. Feeling tired or having little energy: not at all 5. Poor appetite or overeating: not at all 6. Feeling bad about yourself - or that you are a failure or have let yourself or your family down: not at all 7. Trouble concentrating on things, such as reading the newspaper or watching television: not at all 8. Moving or speaking so slowly that other people could have noticed. Or the opposite - being so fidgety or restless that you have been moving around a lot more than usual: not at all 9. Thoughts that you would be better off or of hurting yourself in some way: not at all Total score: 0 Depression Screening Interpretation: Negative Depression Screening Done: Yes 80287 - PHQ-9 Billing: Yes Source: Developed by Drs. Doug Schneider, Luli Chakraborty, George Cheatham and colleagues, with an educational theo from [employer]. Thrive Questionnaire Date Thrive assessed: 09/12/24 I am a: Patient Within the past 12 months, did the food you bought not last and you didn't have the money to get more?: Never true Within the past 12 months, did you worry whether your food would run out before you got money to buy more?: Never true Do you have trouble paying for medicines?: No Do you have trouble getting transportation to medical appointments?: No Do you have trouble paying your heating and electricity bill?: No Do you have trouble taking care of your child, family member or friend?: No Do you have trouble with day-to-day activities such as bathing, preparing meals, shopping, managing finances, etc.?: No Are you currently unemployed and looking for a job?: No Are you interested in more education?: No THRIVE Score: 0 AUDIT C Alcohol Use Questionnaire (AUDIT-C) 1. How often do you have a drink containing alcohol?: Never 2. How many drinks containing alcohol do you have on a typical day when you are drinking?: 1 or 2 Total Score: 0 SARAHY-7 AMB Questionnaire SARAHY-7 Date SARAHY - 7 assessed: 09/12/24 Feeling nervous, anxious, or on edge: 0 = Not at all Not being able to stop or control worryin = Not at all Worrying too much about different things: 0 = Not at all Trouble relaxin = Not at all Being so restless that it is hard to sit still: 0 = Not at all Becoming easily annoyed or irritable: 0 = Not at all Feeling afraid as if something awful might happen: 0 = Not at all Total SARAHY-7 score (0-4 normal; 5-9 mild; 10-14 moderate; 15-21 severe): 0 Source: Developed by Drs. Doug Schneider, Luli Chakraborty, George Cheatham and colleagues, with an educational theo from [employer]. Physical exam (Primary Care) Vital Signs: Last Vital Signs Temp 97.8 F 09/12/24 10:55 Pulse 87 09/12/24 10:55 BP 118/70 09/12/24 10:55 Pulse Ox 98 09/12/24 10:55 Oxygen Delivery Method Room Air 09/12/24 10:55 BMI result Body Mass Index 22.9 Tobacco/Smoking Status: Tobacco use Status Tobacco use date assessed 09/12/24 09/12/24 11:06 Patient Tobacco Use Status Current everyday Tobacco 09/12/24 11:06 e-Cigarette/Vaping Use Currently Using 09/12/24 11:06 PHQ-9: PHQ-9 Score PHQ-9: Total score 0 09/12/24 11:15 Depression Screening Interpretation: Negative Thrive Assessment: Date of Thrive Assessment Date Thrive assessed 09/12/24 09/12/24 11:06 Coding Level of Care Code New Pt Level 4 (68389) Complex EM visit Add On G2211 Diagnoses Cognitive dysfunction F09 Postconcussive syndrome F07.81 Anemia, unspecified type D64.9 Anemia type: unspecified type Hyperlipidemia, unspecified hyperlipidemia type E78.5 Hyperlipidemia type: unspecified Additional Codes PHQ-9 - 62905 - PHQ-9 Billing: Yes ([id number]) Assessment & Plan Assessment & Plan (1) Cognitive dysfunction: Code(s): F09 - Unspecified mental disorder due to known physiological condition Category: Medical (2) Postconcussive syndrome: Code(s): F07.81 - Postconcussional syndrome Category: Medical (3) Anemia: Code(s): D64.9 - Anemia, unspecified Category: Medical Qualifiers: Anemia type: unspecified type Qualified Code(s): D64.9 - Anemia, unspecified (4) Hyperlipidemia: Code(s): E78.5 - Hyperlipidemia, unspecified Category: Medical Qualifiers: Hyperlipidemia type: unspecified Qualified Code(s): E78.5 - Hyperlipidemia, unspecified Plan 54 y/o to establish care. past medical, surg, social and family history reviewed. meds reconciled Ongoing issues with cognitive impairment, sequelae of work accident/concussion. Following with neurology. Upcoming MRI Labs ordered DTA filled Anemia-declines colonoscopy. Cologuard ordered to home. labs ordered Orders: Orders Vitamin B1 Today D64.9 - Anemia, unspecified, E78.5 - Hyperlipidemia, unspecified, F07.81 - Postconcussional syndrome, F09 - Unspecified mental disorder due to known physiological condition Lyme IgG/IgM w/reflex to WB Today D64.9 - Anemia, unspecified, E78.5 - Hyperlipidemia, unspecified, F07.81 - Postconcussional syndrome, F09 - Unspecified mental disorder due to known physiological condition Comprehensive Met. Panel Today D64.9 - Anemia, unspecified, E78.5 - Hyperlipidemia, unspecified, F07.81 - Postconcussional syndrome, F09 - Unspecified mental disorder due to known physiological condition IRON PROFILE Today D64.9 - Anemia, unspecified, E78.5 - Hyperlipidemia, unspecified, F07.81 - Postconcussional syndrome, F09 - Unspecified mental disorder due to known physiological condition Vitamin B12 and Folate Today D64.9 - Anemia, unspecified, E78.5 - Hyperlipidemia, unspecified, F07.81 - Postconcussional syndrome, F09 - Unspecified mental disorder due to known physiological condition Complete Blood Count Auto Diff Today D64.9 - Anemia, unspecified, E78.5 - Hyperlipidemia, unspecified, F07.81 - Postconcussional syndrome, F09 - Unspecified mental disorder due to known physiological condition TSH reflex Free T4 Today D64.9 - Anemia, unspecified, E78.5 - Hyperlipidemia, unspecified, F07.81 - Postconcussional syndrome, F09 - Unspecified mental disorder due to known physiological condition Referrals Cologuard Test Z12.11 - Encounter for screening for malignant neoplasm of colon, Z12.12 - Encounter for screening for malignant neoplasm of rectum Medications: New sertraline Take 1/2 tab oral once daily then increase to one tab oral once daily 25 mg PO DAILY 90 tabs 3RF
--- OUTSIDE RECORDS SUMMARY | 2024-09-12 11:33 | XMS_ITS | Patient Health Record ---
Author Organization Ivan Schultz MD Address [address] [place] [id number] REASON FOR REFERRAL No Information PLAN OF TREATMENT No Information
== END 2024-09-12 11:32 | disposition home or self-care (01) ==
LOC: HO.HMCHD 10:42
PROVIDERS: PCP Internal Medicine; Visit Provider Internal Medicine
DX: F09 Unspecified mental disorder due to known physiological condition (principal); F07.81 Postconcussional syndrome; D64.9 Anemia, unspecified; E78.5 Hyperlipidemia, unspecified

== ENCOUNTER → 2024-09-12 10:40 | Outpatient (BNVA) | payer OTHER, SELFPAY | PROVIDERS: PCP Internal Medicine; Visit Provider Internal Medicine | DX: Z76.89 Persons encountering health services in other specified circumstances (principal); F09 Unspecified mental disorder due to known physiological condition; F07.81 Postconcussional syndrome; D64.9 Anemia, unspecified; E78.5 Hyperlipidemia, unspecified; I25.10 Atherosclerotic heart disease of native coronary artery without angina pectoris; Z79.899 Other long term (current) drug therapy; Z13.31 Encounter for screening for depression | CPT/HCPCS: 96127; 99202 ==

== ENCOUNTER → 2024-09-16 08:37 | Outpatient (REF) | payer OTHER, SELFPAY ==
--- NOTE | 2024-09-16 08:42 | CA_ITS ---
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 Left Ventricle Normal left ventricular size, thickness, and systolic function. The visually estimated ejection fraction is between 55-60%. Diastolic function is normal for age. Right Ventricle Normal right ventricular cavity size and systolic function. Atria Both atria are normal in size. There is no evidence of interatrial shunt. Aortic Valve Normal aortic valve structure and function. There is no aortic valve stenosis. There is no aortic valve regurgitation. Mitral Valve Normal mitral valve structure and function. There is trace mitral valve regurgitation. There is no mitral valve stenosis. Pulmonic Valve The pulmonic valve is likely normal. Tricuspid Valve Normal tricuspid valve structure. Tricuspid regurgitation envelope is inadequate for calculation of right ventricular systolic pressure. Normal right atrial pressure. There is no evidence of pulmonary hypertension. Great Vessels All visible segments of the aorta are normal in size. The pulmonary artery was not well visualized. Venous The inferior vena cava is normal in size and collapses greater than 50% with inspiration. Pericardium/Pleural There is no evidence of pericardial effusion. Measurements 2D Linear Measurements IVSd: 0.79 0.6-0.9/0.6-1.0 cm LVIDd: 4.42 3.9-5.3/4.2-5.9 cm LVIDd Index: 2.50 2.4-3.2/2.2-3.1 cm/m2 LVIDs: 3.02 2.0-3.6 cm LVPWd: 0.84 0.7-1.1 cm LA Diam: 3.00 2.7-3.8/3.0-4.0 cm LAIDs Index: 1.69 1.5-2.3 cm/m2 LV Mass: 141.07 67-162/88-224 g LV Mass Index: 79.70 43-95/49-115 g/m2 LVOT Diam: 2.20 3.0+(-)1.3 cm 2D Systolic Function EF 4C: 56.40 >55% EF 2C: 64.60 >55% EF BiP: 59.80 >55% Mitral Valve MV Pk E: 0.66 MV PK A: 0.52 MV Decel Time: 238.00 E/A: 1.30 E'Lateral: 13.40 E'Medial: 8.59 E/E' Med: 7.70 E/E' Lat: 5.00 PHT: 70.00 MVA PHT: 3.14 Decel Walsh: 2.79 Aortic Valve AoV Pk Carlito: 1.08 AoV Mn Carlito: 0.69 AoV VTI: 0.23 AoV Pk Grad: 5.00 Aov Mn Grad: 2.00 MELIZA Cont.VTI: 2.93 LVOT LVOT Pk Carlito: 0.93 LVOT Mn Carlito: 0.56 LVOT VTI: 0.18 LVOT Pk Grad: 3.00 LVOT Mn Grad: 1.00 LVOT Diam: 2.20 LVOT Area: 3.80 Diastolic Function MV Pk E: 0.66 MV Pk A: 0.52 E/A: 1.30 E'Medial: 8.59 E/E' Med: 7.70 E' Laterial: 13.40 E/E' Lat: 5.00 Right Ventricle TAPSE (mm): 18.80 TVS' Carlito: 11.50 Tricuspid Valve RA Press: 3.00 Great Vessels Aorta Sinus of Valsalva: 3.19 2.0-3.5 cm Ao Asc: 2.60 2.1-3.4 cm Updated in Other Vendor System with Status of Final Gabe Bishop MD electronically signed on 09/17/2024 12:06:03 PM with status of Final
--- OUTSIDE RECORDS SUMMARY | 2024-09-16 08:56 | XMS_ITS | Patient Health Record ---
Author Organization Ivan Schultz MD Address [address] [place] [id number] REASON FOR REFERRAL No Information PLAN OF TREATMENT No Information
== END ==
LOC: HO.CARD 08:37
PROVIDERS: Visit Provider Nurse Practitioner Family
DX: R42 Dizziness and giddiness (principal); I45.10 Unspecified right bundle-branch block; I95.9 Hypotension, unspecified
CPT/HCPCS: 93242; 93306

== ENCOUNTER → 2024-09-16 08:42 | Outpatient (BNV) | payer OTHER, SELFPAY | PROVIDERS: Visit Provider Internal Medicine Cardiovascular Disease | DX: I95.9 Hypotension, unspecified (principal) | CPT/HCPCS: 93306 ==

== ENCOUNTER 2024-09-24 09:46 | Outpatient (REF) | payer OTHER, SELFPAY ==
[2024-09-24 10:15] LABS: MANUAL DIFF FLAG NO
[2024-09-24 10:45] LABS: Basophils Percent Auto 0.4 % (0-2); Eosinophils Absolute Auto 0.1 X10*3/uL (0.0-0.4); Eosinophils Percent Auto 1.2 % (0-4); Hematocrit 39.5 % (42.0-52.0); Hemoglobin 12.9 g/dl (14.0-18.0); Imm Gran Abs Auto 0.03 X10*3/uL (0.00-0.03); Imm Gran Pct Auto 0.4 % (0.0-0.4); Mean Corpuscular HGB Conc 32.7 g/dl (31.0-36.0); Mean Corpuscular Hemoglobin 29.3 pg (27.0-33.0); Mean Corpuscular Volume 89.8 fL (80.0-98.0); Mean Platelet Volume 10.4 fL (9.4-12.4); Monocytes Absolute Auto 0.6 X10*3/uL (0.1-1.2); Monocytes Percent Auto 7.7 % (2-11); Neutrophils Absolute Auto 4.8 x10*3/uL (2.0-8.3); Neutrophils Percent Auto 63.3 % (45-73); Platelet Count 297 X10*3/uL (160-400); Red Cell Distribution Width 13.5 % (11.0-16.0); White Blood Count 7.6 X10*3/uL (4.8-10.8)
[2024-09-24 10:48] LABS: Hematocrit 39.4 % (42.0-52.0); Mean Corpuscular Hemoglobin 29.5 pg (27.0-33.0); Mean Corpuscular Volume 89.3 fL (80.0-98.0); Mean Platelet Volume 10.5 fL (9.4-12.4); Platelet Count 302 X10*3/uL (160-400); Red Blood Count 4.41 X10*6/uL (4.60-5.80); Red Cell Distribution Width 13.6 % (11.0-16.0); White Blood Count 7.3 X10*3/uL (4.8-10.8)
--- OUTSIDE RECORDS SUMMARY | 2024-09-24 11:01 | XMS_ITS | Patient Health Record ---
Author Organization Ivan Schultz MD Address [address] [id number] REASON FOR REFERRAL No Information PLAN OF TREATMENT No Information
[2024-09-24 11:19] LABS: Anion Gap 14 (12-20); Blood Urea Nitrogen 13 mg/dL (9-16); Calcium 9.3 mg/dL (8.4-10.2); Carbon Dioxide 27 mmol/L (22-29); Chloride 103 mmol/L (96-108); Estimated Glomerular Filt Rate > 60; Glucose Random 132 mg/dL (60-115); Sodium 140 mmol/L (135-145)
[2024-09-24 11:37] LABS: Prostate Specific Antigen 0.64 ng/mL (<0.05-4.0)
[2024-09-24 11:37] LABS: TSH reflex Free T4 2.54 uIU/mL (0.32-4.0)
[2024-09-24 11:41] LABS: Alanine Aminotransferase 37 U/L (0-40); Albumin Level 4.2 g/dL (3.5-5.0); Alkaline Phosphatase 124 U/L (39-117); Anion Gap 10 (12-20); Aspartate Amino Transferase 36 U/L (5-37); Bilirubin Direct 0.1 mg/dL (0.0-0.5); Bilirubin Total 0.3 mg/dL (0.0-1.0); Blood Urea Nitrogen 13 mg/dL (9-16); Calcium 9.4 mg/dL (8.4-10.2); Carbon Dioxide 30 mmol/L (22-29); Chloride 103 mmol/L (96-108); Cholesterol 163 mg/dL (<200); Estimated Glomerular Filt Rate > 60; Glucose Random 132 mg/dL (60-115); HDL Cholesterol 45 mg/dL (>40); Iron 79 mcg/dL (45-160); LDL Cholesterol Calculated 89 mg/dL (<100); Percent Iron Saturation 24 % (15-50); Sodium 139 mmol/L (135-145); Total Iron Binding Capacity 326 mcg/dL (228-428); Total Protein 7.3 g/dL (6.5-8.0); Triglycerides 146 mg/dL (<150); Unsaturated Iron Binding 247 ug/dL
[2024-09-24 11:49] LABS: Folate 14.1 ng/mL (> or = 4.0); Vitamin B12 539 pg/mL (200-900)
[2024-09-25 09:04] LABS: Lyme Abs Screen <0.90 index
[2024-09-25 09:19] LABS: Lutenizing Hormone 2.7 mIU/mL (1.5-9.3)
[2024-09-29 12:29] LABS: Testosterone, Free 17.3 pg/mL (35.0-155.0); Testosterone, Total 105 ng/dL (250-1100)
[2024-10-02 18:03] LABS: Vitamin B1 14 nmol/L (8-30)
== END 2024-09-24 09:47 | disposition home or self-care (01) ==
LOC: HO.LAB 09:46
PROVIDERS: Internal Medicine; Nurse Practitioner Family; Absent Provider Nurse Practitioner Family; PCP Internal Medicine; Visit Provider Internal Medicine
DX: I25.10 Atherosclerotic heart disease of native coronary artery without angina pectoris (principal); I10 Essential (primary) hypertension; F09 Unspecified mental disorder due to known physiological condition; E78.5 Hyperlipidemia, unspecified; D64.9 Anemia, unspecified; F07.81 Postconcussional syndrome; N52.9 Male erectile dysfunction, unspecified
CPT/HCPCS: 36415; 80048; 80053; 80061; 80076; 82248; 82607; 82746; 83002; 83540; 84153; 84402; 84403; 84425; 84443; 85025; 85027; 86617; 86618

== ENCOUNTER 2024-09-25 08:28 | Outpatient (AMB) | payer OTHER, SELFPAY ==
--- OUTSIDE RECORDS SUMMARY | 2024-09-25 08:49 | XMS_ITS | Patient Health Record ---
Author Organization Ivan Schultz MD Address [address] [id number] REASON FOR REFERRAL No Information PLAN OF TREATMENT No Information
--- NOTE | 2024-09-25 09:12 | MHC.OFFVIS ---
Vital Signs 09/25/24 09:14 Height 5 ft 7 in Weight 142 lb 13.753 oz BMI 22.4 BP 90/62 Blood Pressure Location Lt brachial Position Sitting Pulse 73 Pulse Source Monitor Intake Visit Reasons: 6wk follow up/holter/echo Material Dispatcher Required: No Measurement Department Chief Clerk: Measurement Department Chief Clerk Present Allergies No Known Allergies [No Known Allergies*] Allergy (Verified 09/25/24 09:16) Medication List - Last Reconciled 09/25/24 by Maria Teresa Melendez, CLAUDIA-C amitriptyline 25 mg PO BEDTIME 30 days baclofen 10 mg PO BEDTIME clonazepam 1 mg PO BID clonazepam 0.5 mg PO DAILY magnesium oxide 400 mg PO BEDTIME 90 days omeprazole 40 mg PO DAILY riboflavin (vitamin B2) 400 mg PO DAILY 90 days rosuvastatin (Crestor) 10 mg PO DAILY sertraline 25 mg PO DAILY HPI HPI 6wk follow up/holter/echo: Details: Joseph is a 54-year-old male with past medical history of prior cocaine use, hyperlipidemia, right bundle branch block, low BP readings who presents for follow-up. Today he reports he continues to have intermittent lightheadedness and sweating. He has not had any syncope or falls. His blood does run on the low side. He continues to increase his fluid intake and drink some Gatorade each day. He has no chest discomfort at rest or with activity. No shortness of breath, orthopnea or edema. Last evening he woke up gasping for air. That was the 1st time that has ever happened. Today his breathing is normal. Takes his meds as directed. Denies any cocaine use. is present. [facility], [facility] Family History Father No problems noted. Mother No problems noted. Social History Housing: House Alcohol intake: former Patient Tobacco Use Status: Current everyday Tobacco user e-Cigarette/Vaping Use: Currently Using service: No Current occupational status: retired Cognitive needs: No Hearing needs: No Vision needs: No Review of Systems Const All systems reviewed & are unremarkable except as noted in HPI and below ENT Reports dizziness Card Denies chest pain, Denies chest pain at rest, Denies chest pain with activity, Denies rapid heart rate, Denies pedal edema, Denies edema, Denies leg edema, Denies lightheadedness, Denies palpitations, Denies dyspnea, Denies dyspnea on exertion and Denies orthopnea Resp Denies cough, Denies dyspnea and Denies dyspnea on exertion GI Denies hematochezia and Denies change in stool character Musc Denies abnormal gait, Denies limited range of motion, Denies muscle cramps, Denies muscle weakness, Denies numbness, Denies radiating pain into limb, Denies stiffness and Denies tingling Neuro Denies abnormal gait, Reports dizziness, Denies numbness and Denies tingling Endo Denies palpitations Physical Exam Vital Signs: Last Vital Signs Pulse 73 09/25/24 09:14 BP 90/62 09/25/24 09:14 BMI result Body Mass Index 22.4 Const General: cooperative, healthy appearing, comfortable and no acute distress Orientation/consciousness: patient oriented x3 Neck Neck: Yes normal visual inspection and Yes no JVD Resp Effort & Inspection: normal respiratory effort Auscultation: clear to auscultation bilaterally, no rales and no rhonchi Cardio Rate: regular rate Rhythm: regular rhythm Heart sounds: S1 normal heart sound present, S2 normal heart sound present, no gallops, no murmurs and no rubs Neuro General: patient oriented x3 Extrem General: Yes normal to inspection, No no pedal edema and No calf tenderness Psych Appearance: grossly normal Mental Status: mental status grossly normal Speech and movement: Normal speech and movement present Office Procedures EKG Details: Today, read by me, normal sinus rhythm, right bundle branch block, left anterior fascicular block, rate 73, QTC 491 millisecond [id number], Complete Assessment & Plan Assessment & Plan (1) Hypotension: Code(s): I95.9 - Hypotension, unspecified Category: Medical Plan: Blood pressure runs low with systolic mostly in the 90s. Initial blood pressure 90/62, rechecked with him standing 98/68. Symptomatic hypotension with presyncope at times that is treated with increased fluid intake and compression stockings. He is on medications that can cause hypotension and orthostatic hypotension including amitriptyline, baclofen and clonazepam. Echocardiogram done 09/16/2024 was normal study. Holter monitor 09/16/2024 showed sinus rhythm with average heart rate 74, rare PACs and PVCs, no pauses or significant arrhythmia. Will check with pharmacist about the use of midodrine with his other medications. If able will plan trial of midodrine to see if this helps to improve his symptoms. Instructed to increase fluid intake to greater than 64 oz daily and add salt to his diet. Use caution when going sitting to standing. Emergency care if needed for symptoms. If midodrine use then office blood pressures will be checked. (2) Abnormal echocardiogram: Code(s): R93.1 - Abnormal findings on diagnostic imaging of heart and coronary circulation Category: Medical Plan: Cardiac evaluation for EKG showing right bundle branch block. He underwent an echocardiogram on 09/21/2023 which showed EF 56%, inferior lateral wall hypokinetic, no valve abnormalities. This led to a nuclear stress test on 12/12/2023 showing subdiaphragmatic tracer uptake adjacent to the inferior lateral wall but otherwise unremarkable. For further evaluation he had a diagnostic cardiac catheterization on 01/10/2024 showing normal coronaries with mid LAD bridging. He does have a history of cocaine use but denies any recent use of this substance. It is possible that he did have a coronary spasm in the past creating small infarct which can account for the Echo and stress abnormalities. Most recent echo is not showing any wall motion abnormality. Currently no anginal symptoms. Continue atorvastatin. Cardiology follow-up 1 year, sooner if needed. (3) S/P cardiac cath: Comment: 01/10/2024, left main, left circumflex, RCA all normal, lad normal with mid LAD bridging noted. Code(s): Z98.890 - Other specified postprocedural states Category: Surgical (4) Right bundle branch block: Code(s): I45.10 - Unspecified right bundle-branch block Category: Medical Plan: Present on EKG. EKG from today also shows a left anterior fascicular block. Continue to follow. (5) Hyperlipidemia: Code(s): E78.5 - Hyperlipidemia, unspecified Category: Medical Qualifiers: Hyperlipidemia type: unspecified Qualified Code(s): E78.5 - Hyperlipidemia, unspecified Plan: [place] LDL goal less than 100. Labs done 09/24/2024 showed LDL 89. Continue atorvastatin Plan Time spent on chart review, documentation, interview and assessment Coding Level of Care Code Est Pt Level 4 (78630) Complex EM visit Add On G2211 Diagnoses Hypotension I95.9 Abnormal echocardiogram R93.1 S/P cardiac cath Z98.890 Right bundle branch block I45.10 Hyperlipidemia, unspecified hyperlipidemia type E78.5 Hyperlipidemia type: unspecified CPT Codes EKG - CPT: 70821-[id number], Complete ([id number]) Time Spent (min) 28
[2024-09-25 09:14] VITALS: BP 90/62; PULSE 73; BMI 22.4
== END 2024-09-25 09:52 | disposition home or self-care (01) ==
LOC: HO.HCS 08:28
PROVIDERS: PCP Internal Medicine; Visit Provider Nurse Practitioner Family
DX: I95.9 Hypotension, unspecified (principal); R93.1 Abnormal findings on diagnostic imaging of heart and coronary circulation; Z98.890 Other specified postprocedural states; I45.10 Unspecified right bundle-branch block; E78.5 Hyperlipidemia, unspecified
CPT/HCPCS: 93010; 99214; G2211

== ENCOUNTER → 2024-09-25 08:28 | Outpatient (BNVA) | payer OTHER, SELFPAY | PROVIDERS: PCP Internal Medicine; Visit Provider Nurse Practitioner Family | DX: I95.9 Hypotension, unspecified (principal); R93.1 Abnormal findings on diagnostic imaging of heart and coronary circulation; E78.5 Hyperlipidemia, unspecified; R94.31 Abnormal electrocardiogram [ECG] [EKG]; I45.2 Bifascicular block; Z98.890 Other specified postprocedural states | CPT/HCPCS: 93005; 99212 ==

== ENCOUNTER 2024-10-17 14:37 | Outpatient (REF) | payer OTHER, SELFPAY ==
--- NOTE | ~2024-10-17 | US_ITS ---
EXAMINATION: US RETROPERITONEUM HISTORY: R39.15 - Urgency of urination TECHNIQUE: Real-time grayscale ultrasound imaging of the kidneys was performed and images were reviewed. COMPARISON: Correlation is made with a CT of the abdomen without contrast dated 06/13/2022. FINDINGS: Right kidney: The right kidney measures 11.0 x 4.0 x 3.7 cm. Renal parenchymal echotexture and thickness are normal. There is a 5 x 4 x 4 mm upper pole cyst. There is no hydronephrosis or renal calculi. Left Kidney: The left kidney measures 10.1 x 5.3 x 3.3 cm. Renal parenchymal echotexture and thickness are normal. There are no masses. There is no hydronephrosis or renal calculi. The urinary bladder is unremarkable. Bilateral ureteral jets are identified. The prostate measures 2.6 x 2.3 x 3.0 cm. US/US retroperitoneal comp IMPRESSION: 5 mm right renal cyst. Otherwise unremarkable renal ultrasound. Electronically signed by: Doug Burr MD 10/17/2024 03:19 PM EDT
== END 2024-10-17 14:38 | disposition home or self-care (01) ==
LOC: HO.US 14:37
PROVIDERS: PCP Internal Medicine; Visit Provider Nurse Practitioner Family
DX: R39.15 Urgency of urination (principal); N52.9 Male erectile dysfunction, unspecified; Z87.898 Personal history of other specified conditions
CPT/HCPCS: 76770

== ENCOUNTER → 2024-10-17 14:39 | Outpatient (BNV) | payer OTHER, SELFPAY | PROVIDERS: PCP Internal Medicine; Visit Provider Radiology Diagnostic Radiology | DX: N28.1 Cyst of kidney, acquired (principal) | CPT/HCPCS: 76770 ==

== ENCOUNTER 2024-10-20 11:11 | Outpatient (AMB) | payer OTHER, SELFPAY ==
--- NOTE | 2024-10-20 11:15 | A.OFFVIS_ITS ---
Intake Visit Reasons: 3m/US/PSA(ultrasound pending 10/17) Intake Note: Pt presents to the office today for a 3 month/US/PSA. Allergies No Known Allergies [No Known Allergies*] Allergy (Verified 10/20/24 11:24) Medication List - Last Reconciled 10/20/24 by GEOVANNA Borges- baclofen 10 mg PO BEDTIME clonazepam 1 mg PO BID clonazepam 0.5 mg PO DAILY magnesium oxide 400 mg PO BEDTIME 90 days midodrine 2.5 mg PO TID omeprazole 40 mg PO DAILY riboflavin (vitamin B2) 400 mg PO DAILY 90 days rosuvastatin (Crestor) 10 mg PO DAILY sertraline 25 mg PO DAILY ubrogepant (Ubrelvy) 50 - 100 mg (0.5 - 1 x 100 mg) PO ONCE PRN 30 days HPI Comments Details: Joseph is a very pleasant 54-year-old male patient of Dr. Dotson who was accompanied by his significant other Corrie at today's office visit. He has a past medical history of prior cocaine use, hyperlipidemia, right bundle branch block who recently had echocardiogram and nuclear stress test which did show abnormalities. He presents to the office today for follow-up of his ongoing lower urinary tract symptoms as well as erectile dysfunction. Of note, patient was seen approximately 3 months ago as a new patient at which time a retroperitoneal ultrasound and labs were ordered for further assessment evaluation. These results were reviewed communicated with the patient and his significant other today. 10/26 bilateral kidneys are normal in echotexture and thickness. There is no hydronephrosis or renal calculi noted bilaterally. There is a 5 mm upper pole right renal cysts otherwise unremarkable renal ultrasound per radiology report. Labs are as follows: PSA: 09/26 0.6 Testosterone: 09/26 105 Free testosterone: 09/26 17.3 We discussed at length potential causes of lower urinary tract symptoms and hypogonadism as well as further treatment options and risks and benefits of these treatment options. He continues to feel status post cardiac catheter ization he has since been experiencing urinary urgency and urinary hesitancy. We discussed further treatment options and risks and benefits of these treatment options. He would like to continue with surveillance monitoring of his urinary issues as he feels he is managing well independently. He denies incontinence, nocturia, hematuria, dysuria, foul smelling urine, changes to urinary stream, flank pain, fever, and or chills. He otherwise offers no other issues or concerns at this time. Plan For the patient?s low testosterone, treatment involves a 7-day course of Clomiphene Citrate to attempt to stimulate endogenous production of testosterone by the testicles. If this proves ineffective, testosterone replacement therapy may be considered, acknowledging the lifelong implications and its potential effects on fertility. For erectile dysfunction, the patient was informed regarding further treatment options and risks and benefits of these treatment options. Patient was informed and verbally consented to the use of an ambient scribe for clinic note documentation during this visit. [facility] Family History Father No problems noted. Mother No problems noted. Social History Housing: House Alcohol intake: former Patient Tobacco Use Status: Current everyday Tobacco user e-Cigarette/Vaping Use: Currently Using service: No Current occupational status: retired Cognitive needs: No Hearing needs: No Vision needs: No Review of Systems Const All systems reviewed & are unremarkable except as noted in HPI and below Physical Exam Const General: cooperative, healthy appearing, comfortable, no acute distress, well developed, alert and awake Nutritional Appearance: thin Orientation/consciousness: patient oriented x3 Limitations: no limitations HEENT Head: Yes normal to inspection, Yes normocephalic and Yes atraumatic Ears: hearing grossly normal bilaterally Eyes General: appearance normal, both eyes and all related structures Neck Neck: Yes normal visual inspection and Yes trachea midline Chest Chest palpation & inspection: normal inspection of the chest Resp Effort & Inspection: normal respiratory effort and able to speak in complete sentences Cardio Rate: regular rate GI Inspection: Yes normal to inspection General: Yes no CVA tenderness Back/Spine/Pelvis Back: no CVA tenderness Skin General skin exam: no rashes or lesions noted Neuro General: patient oriented x3 Extrem General: Yes normal to inspection Psych Appearance: grossly normal and well kempt Mental Status: mental status grossly normal Speech and movement: Normal speech and movement present and Clear speech present Affect: normal affect Attitude: cooperative Thought process: Normal thought process present Thought content: Normal thought content present Insight: Fair insight present (Psych) Judgement: Fair judgement present (Psych) Results AMB Urinalysis, Automated UA Leukoctes 0 Kaylin/uL Last Edit by Nikky Avelar CMA on 10/20/24 11:21 UA Nitrite Negative Last Edit by Nikky Avelar, GAS MAKER HELPER on 10/20/24 11:21 UA Urobilinogen 0.2 mg/dL Last Edit by Nikky Avelar, ALDO on 10/20/24 11:21 UA Protein 15 mg/dL Last Edit by Nikky Avelar, ALDO on 10/20/24 11:21 UA pH 7.0 Last Edit by Nikky Avelar, GAS MAKER HELPER on 10/20/24 11:21 UA Blood 0 Ruiz/uL Last Edit by Nikky Avelar, GAS MAKER HELPER on 10/20/24 11:21 UA Specific Metaline 1.015 Last Edit by Nikky Avelar, ALDO on 10/20/24 11:21 UA Ketone Negative Last Edit by Nikky Avelar, ALDO on 10/20/24 11:21 UA Bilirubin 0 mg/dL Last Edit by Nikky Avelar, ALDO on 10/20/24 11:21 UA Glucose 0 mg/dL Last Edit by Nikky Avelar CMA on 10/20/24 11:21 Results Reviewed Results Reviewed: Laboratory Last Values Urine pH (Auto) 7.0 10/20/24 11:19 Specific Metaline (Auto) 1.015 10/20/24 11:19 Urine Protein (Auto) 15 mg/dL 10/20/24 11:19 Glucose (UA)(Auto) 0 mg/dL 10/20/24 11:19 Urine Ketones (Auto) Negative 10/20/24 11:19 Urine Blood (Auto) 0 Ruiz/uL 10/20/24 11:19 Urine Nitrite (Auto) Negative 10/20/24 11:19 Urine Bilirubin (Auto) 0 mg/dL 10/20/24 11:19 Urine Urobilinogen (Auto) 0.2 mg/dL 10/20/24 11:19 Leukocyte Esterase (Auto) 0 Kaylin/uL 10/20/24 11:19 Date of Service: 10/17/24 Procedure(s): US retroperitoneal comp FINDINGS: Right kidney: The right kidney measures 11.0 x 4.0 x 3.7 cm. Renal parenchymal echotexture and thickness are normal. There is a 5 x 4 x 4 mm upper pole cyst. There is no hydronephrosis or renal calculi. Left Kidney: The left kidney measures 10.1 x 5.3 x 3.3 cm. Renal parenchymal echotexture and thickness are normal. There are no masses. There is no hydronephrosis or renal calculi. The urinary bladder is unremarkable. Bilateral ureteral jets are identified. The prostate measures 2.6 x 2.3 x 3.0 cm. IMPRESSION: 5 mm right renal cyst. Otherwise unremarkable renal ultrasound. Assessment & Plan Assessment & Plan (1) Hypogonadism in male: Code(s): E29.1 - Testicular hypofunction Category: Medical (2) Erectile dysfunction: Code(s): N52.9 - Male erectile dysfunction, unspecified Category: Medical Plan In office urinalysis results reviewed with the patient today; as noted above. Recent retroperitoneal ultrasound results reviewed with the patient today; as noted above. Recent labs were reviewed with the patient today; as noted above. We discussed further treatment options of hypogonadism and risks and benefits of these treatment options. We discussed potential causes of lower urinary tract symptoms patient is experiencing as well as further treatment options and risks and benefits of these treatment options. Start Clomid as discussed and prescribed. Will obtain redraw of LH and testosterone free and total on 8th day status post completion of stim testing He does continue to report urinary hesitancy however feels he is managing this well independently. Follow-up in 1 month with labs to be completed prior; or sooner with any issues, concerns, and or questions. Orders: Orders AMB Urinalysis Automated Today R39.15 - Urgency of urination Testosterone, Free/Total 1 Week E29.1 - Testicular hypofunction, N52.9 - Male erectile dysfunction, unspecified Lutenizing Hormone 1 Week E29.1 - Testicular hypofunction, N52.9 - Male erectile dysfunction, unspecified Medications: New clomiphene citrate (Clomid) Take 2 tablets daily for 7 days and complete lab work on day [id number] [facility] [id number] Member [id number] 100 mg (2 x 50 mg) PO DAILY 7 days 14 tabs 0RF Patient Instructions: The patient had an opportunity to ask questions regarding the treatment plan. All questions were answered. Physical exam, labs, and imaging were discussed and reviewed in detail. As well as risks, benefits, and discussion of treatment choices. No major barriers to understanding were identified. The patient expressed understanding and agreement with the above treatment plan. The patient was made aware they should contact our office by phone for worsening of their current condition, the appearance of new symptoms, or with any questions or concerns. Compliance is encouraged with any medications and follow up testing that is ordered. It is a privilege to be allowed the opportunity to participate in? your urological care.? Again, if you have any questions or concerns If you have any questions or concerns please do not hesitate to contact me. The office is [phone]. This note is constructed using voice recognition software. While every effort has been made to ensure accuracy motor installer errors may have been included. Yours sincerely, JEANETTE Borges Coding Level of Care Code Est Pt Level 4 (33164) Diagnoses Hypogonadism in male E29.1 Erectile dysfunction N52.9
--- OUTSIDE RECORDS SUMMARY | 2024-10-20 11:55 | XMS_ITS | Patient Health Record ---
Author Organization Ivan Schultz MD Address [address] [address] REASON FOR REFERRAL No Information PLAN OF TREATMENT No Information
== END 2024-10-20 11:46 | disposition home or self-care (01) ==
LOC: HO.HUSH 11:12
PROVIDERS: PCP Internal Medicine; Visit Provider Nurse Practitioner Family
DX: E29.1 Testicular hypofunction (principal); N52.9 Male erectile dysfunction, unspecified; R39.15 Urgency of urination
CPT/HCPCS: 99214

== ENCOUNTER → 2024-10-20 11:11 | Outpatient (BNVA) | payer OTHER, SELFPAY | PROVIDERS: PCP Internal Medicine; Visit Provider Nurse Practitioner Family | DX: E29.1 Testicular hypofunction (principal); N52.9 Male erectile dysfunction, unspecified | CPT/HCPCS: 81003; 99212 ==

== ENCOUNTER → 2024-10-28 09:14 | Outpatient (BNVA) | payer OTHER, SELFPAY | PROVIDERS: PCP Internal Medicine; Visit Provider Nurse Practitioner Family ==

== ENCOUNTER 2024-11-06 11:05 | Outpatient (AMB) | payer OTHER, SELFPAY ==
[2024-11-06 11:05] VITALS: BP 114/70; PULSE 90; TEMP 36.9; O2SAT 98; BMI 22.2
--- NOTE | 2024-11-06 11:05 | MHC.PC.OV ---
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 Mother No problems noted. Social History Housing: House Alcohol intake: former Patient Tobacco Use Status: Current everyday Tobacco user e-Cigarette/Vaping Use: Currently Using service: No Current occupational status: retired Cognitive needs: No Hearing needs: No Vision needs: No Questionnaire PHQ-9 Over the last 2 weeks, how often have you been bothered by any of the following problems? 1. Little interest or pleasure in doing things: not at all 2. Feeling down, depressed, or hopeless: not at all 3. Trouble falling or staying asleep, or sleeping too much: not at all 4. Feeling tired or having little energy: not at all 5. Poor appetite or overeating: not at all 6. Feeling bad about yourself - or that you are a failure or have let yourself or your family down: not at all 7. Trouble concentrating on things, such as reading the newspaper or watching television: not at all 8. Moving or speaking so slowly that other people could have noticed. Or the opposite - being so fidgety or restless that you have been moving around a lot more than usual: not at all Source: Developed by Drs. Doug Schneider, Luli Chakraborty, George Cheatham and colleagues, with an educational theo from [employer]. Thrive Questionnaire Date Thrive assessed: 11/06/24 I am a: Patient Within the past 12 months, did the food you bought not last and you didn't have the money to get more?: Never true Within the past 12 months, did you worry whether your food would run out before you got money to buy more?: Never true Do you have trouble paying for medicines?: No Do you have trouble getting transportation to medical appointments?: No Do you have trouble paying your heating and electricity bill?: No Do you have trouble taking care of your child, family member or friend?: No Do you have trouble with day-to-day activities such as bathing, preparing meals, shopping, managing finances, etc.?: No Are you currently unemployed and looking for a job?: No Are you interested in more education?: No THRIVE Score: 0 AUDIT C Alcohol Use Questionnaire (AUDIT-C) 1. How often do you have a drink containing alcohol?: Never 3. How often do you have six or more drinks on one occasion?: Never Total Score: 0 SARAHY-7 AMB Questionnaire SARAHY-7 Date SARAHY - 7 assessed: 11/06/24 Feeling nervous, anxious, or on edge: 0 = Not at all Not being able to stop or control worryin = Not at all Worrying too much about different things: 0 = Not at all Trouble relaxin = Not at all Being so restless that it is hard to sit still: 0 = Not at all Becoming easily annoyed or irritable: 0 = Not at all Feeling afraid as if something awful might happen: 0 = Not at all Total SARAHY-7 score (0-4 normal; 5-9 mild; 10-14 moderate; 15-21 severe): 0 Source: Developed by Drs. Doug Schneider, Luli Chakraborty, George Cheatham and colleagues, with an educational theo from [employer]. Physical exam (Primary Care) Tobacco/Smoking Status: Tobacco use Status Tobacco use date assessed 09/12/24 09/12/24 11:06 Patient Tobacco Use Status Current everyday Tobacco 09/12/24 11:06 e-Cigarette/Vaping Use Currently Using 09/12/24 11:06 Thrive Assessment: Date of Thrive Assessment Date Thrive assessed 09/12/24 09/12/24 11:06 Coding
--- NOTE | 2024-11-06 11:13 | A.OFFPC_ITS ---
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 Last seen by PCP in Jun Neuro: chronic migraine and cognitive impairment in the context of post- concussion syndrome. Following a work-related concussion two years ago, the patient has experienced daily migraines, light and noise sensitivity, irritability, and nausea, requiring frequent use of Aleve. Cognitive deficits, including memory loss and difficulty with familiar tasks, have led to occupational challenges and subsequent unemployment. Attempts at cognitive rehabilitation have not shown benefits, and vertigo complicates his clinical picture. Anxiety: Not well controlled on clonazepam twice daily. Prescribed sertraline at last visit but did not start it yet CAD: following with cardiology. On rosuvastatin Urology: Bladder retention, dysuria, ED. Following with urology. Remote colonoscopy. Declines repeat. ok for cologuard which has been received ROS CONSTITUTIONAL: Denies weight loss, fever and chills. HEENT: Denies changes in vision and hearing. RESPIRATORY: Denies SOB and cough. CV: Denies palpitations and CP GI: Denies abdominal pain, nausea, vomiting and diarrhea. : Denies dysuria and urinary frequency. MSK: Denies new myalgia and joint pain. SKIN: Denies rash and pruritus. NEUROLOGICAL: Denies headache PSYCHIATRIC: Denies recent changes in mood. PHYSICAL EXAM: GENERAL: Alert and oriented x 3. NAD EYES: EOMI. Anicteric. HENT: Moist mucous membranes. No scleral icterus. No cervical lymphadenopathy. LUNGS: Clear to auscultation bilaterally. CARDIOVASCULAR: Regular rate and rhythm. No murmur. No JVD. ABDOMEN: Soft, non-tender +bs EXTREMITIES: No edema. Non-tender. SKIN: No rashes or lesions. Warm. NEUROLOGIC: No focal neurological deficits. CN II-XII grossly intact PSYCHIATRIC: Cooperative. Appropriate mood and affect [facility] Family History Father No problems noted. Mother No problems noted. Social History Housing: House Alcohol intake: former Patient Tobacco Use Status: Current everyday Tobacco user e-Cigarette/Vaping Use: Currently Using service: No Current occupational status: retired Cognitive needs: No Hearing needs: No Vision needs: No Questionnaire PHQ-9 Over the last 2 weeks, how often have you been bothered by any of the following problems? 1. Little interest or pleasure in doing things: not at all 2. Feeling down, depressed, or hopeless: nearly every day 3. Trouble falling or staying asleep, or sleeping too much: not at all 4. Feeling tired or having little energy: not at all 5. Poor appetite or overeating: not at all 6. Feeling bad about yourself - or that you are a failure or have let yourself or your family down: not at all 7. Trouble concentrating on things, such as reading the newspaper or watching television: not at all 8. Moving or speaking so slowly that other people could have noticed. Or the opposite - being so fidgety or restless that you have been moving around a lot more than usual: not at all Depression Screening Interpretation: Negative Depression Screening Done: Yes 63088 - PHQ-9 Billing: Yes Source: Developed by Drs. Doug Schneider, Luli Chakraborty, George Cheatham and colleagues, with an educational theo from [employer]. Thrive Questionnaire Date Thrive assessed: 11/06/24 I am a: Patient Within the past 12 months, did the food you bought not last and you didn't have the money to get more?: Never true Within the past 12 months, did you worry whether your food would run out before you got money to buy more?: Never true Do you have trouble paying for medicines?: No Do you have trouble getting transportation to medical appointments?: No Do you have trouble paying your heating and electricity bill?: No Do you have trouble taking care of your child, family member or friend?: No Do you have trouble with day-to-day activities such as bathing, preparing meals, shopping, managing finances, etc.?: No Are you currently unemployed and looking for a job?: No Are you interested in more education?: No THRIVE Score: 0 AUDIT C Alcohol Use Questionnaire (AUDIT-C) 1. How often do you have a drink containing alcohol?: Never 3. How often do you have six or more drinks on one occasion?: Never Total Score: 0 SARAHY-7 AMB Questionnaire SARAHY-7 Date SARAHY - 7 assessed: 11/06/24 Feeling nervous, anxious, or on edge: 3 = Nearly every day Not being able to stop or control worryin = Not at all Worrying too much about different things: 0 = Not at all Trouble relaxin = Not at all Being so restless that it is hard to sit still: 0 = Not at all Becoming easily annoyed or irritable: 0 = Not at all Feeling afraid as if something awful might happen: 0 = Not at all Total SARAHY-7 score (0-4 normal; 5-9 mild; 10-14 moderate; 15-21 severe): 3 Source: Developed by Drs. Doug Schneider, Luli Chakraborty, George Cheatham and colleagues, with an educational theo from [employer]. Physical exam (Primary Care) Vital Signs: Last Vital Signs Temp 98.5 F 11/06/24 11:05 Pulse 90 11/06/24 11:05 BP 114/70 11/06/24 11:05 Pulse Ox 98 11/06/24 11:05 Oxygen Delivery Method Room Air 11/06/24 11:05 BMI result Body Mass Index 22.2 Tobacco/Smoking Status: Tobacco use Status Tobacco use date assessed 11/06/24 11/06/24 11:20 Patient Tobacco Use Status Current everyday Tobacco 11/06/24 11:20 e-Cigarette/Vaping Use Currently Using 11/06/24 11:20 Depression Screening Interpretation: Negative Thrive Assessment: Date of Thrive Assessment Date Thrive assessed 11/06/24 11/06/24 11:20 Coding Level of Care Code New Pt Level 4 (25730) Complex EM visit Add On G2211 Diagnoses Cognitive dysfunction F09 Hypotension, unspecified hypotension type I95.9 Hypotension type: unspecified hypotension type Anemia, unspecified type D64.9 Anemia type: unspecified type Abnormal echocardiogram R93.1 Nonintractable headache, unspecified chronicity pattern, unspecified headache type R51.9 Headache chronicity pattern: unspecified pattern Headache type: unspecified Intractability: not intractable Additional Codes PHQ-9 - 97227 - PHQ-9 Billing: Yes ([id number]) Assessment & Plan Assessment & Plan (1) Cognitive dysfunction: Code(s): F09 - Unspecified mental disorder due to known physiological condition Category: Medical (2) Hypotension: Code(s): I95.9 - Hypotension, unspecified Category: Medical Qualifiers: Hypotension type: unspecified hypotension type Qualified Code(s): I95.9 - Hypotension, unspecified (3) Anemia: Code(s): D64.9 - Anemia, unspecified Category: Medical Qualifiers: Anemia type: unspecified type Qualified Code(s): D64.9 - Anemia, unspecified (4) Abnormal echocardiogram: Code(s): R93.1 - Abnormal findings on diagnostic imaging of heart and coronary circulation Category: Medical (5) Headache: Code(s): R51.9 - Headache, unspecified Category: Medical Qualifiers: Headache chronicity pattern: unspecified pattern Headache type: unspecified Intractability: not intractable Qualified Code(s): R51.9 - Headache, unspecified Plan Anxiety-start the sertraline as ordered. Follow up for progress 3 months Labs reviewed
--- OUTSIDE RECORDS SUMMARY | 2024-11-06 13:13 | XMS_ITS | Patient Health Record ---
Author Organization Ivan Schultz MD Address [address] [address] REASON FOR REFERRAL No Information PLAN OF TREATMENT No Information
== END 2024-11-06 11:42 | disposition home or self-care (01) ==
LOC: HO.HMCHD 11:06
PROVIDERS: PCP Internal Medicine; Visit Provider Internal Medicine
DX: D64.9 Anemia, unspecified (principal); F09 Unspecified mental disorder due to known physiological condition; I95.9 Hypotension, unspecified; R93.1 Abnormal findings on diagnostic imaging of heart and coronary circulation; R51.9 Headache, unspecified

== ENCOUNTER → 2024-11-06 11:05 | Outpatient (BNVA) | payer OTHER, SELFPAY | PROVIDERS: PCP Internal Medicine; Visit Provider Internal Medicine | DX: G43.909 Migraine, unspecified, not intractable, without status migrainosus (principal); I25.10 Atherosclerotic heart disease of native coronary artery without angina pectoris; I95.9 Hypotension, unspecified; E78.5 Hyperlipidemia, unspecified; K21.9 Gastro-esophageal reflux disease without esophagitis; D64.9 Anemia, unspecified; R93.1 Abnormal findings on diagnostic imaging of heart and coronary circulation; F09 Unspecified mental disorder due to known physiological condition | CPT/HCPCS: 96127; 99212 ==

== ENCOUNTER 2024-12-25 11:22 | Outpatient (AMB) | payer OTHER, SELFPAY ==
[2024-12-25 09:39] VITALS: BP 118/74; PULSE 75; TEMP 36.9; O2SAT 98; BMI 21.5
--- NOTE | 2024-12-25 09:39 | A.OFFPC_ITS ---
Vital Signs 12/25/24 09:39 Height 5 ft 7 in Weight 137 lb BMI 21.5 BP 118/74 Blood Pressure Location Lt brachial Position Sitting Pulse 75 Pulse Source Pulse Oximeter Temp 98.5 F Temp Source Axillary Pulse Oximetry (%) 98 Oxygen Delivery Method Room Air Intake Visit Reasons: no appetite, sweating profusely. 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 Last seen by PCP in Jun Patient has been having sweats-day and night for at least the last few months. Patient reports loss of appetite, fatigue. Patients weight is down 13 pounds since September. He had positive colguard and has gi appt in feb Neuro: chronic migraine and cognitive impairment in the context of post-con cussion syndrome. Following a work-related concussion two years ago, the patient has experienced daily migraines, light and noise sensitivity, irritability, and nausea, requiring frequent use of Aleve. Cognitive deficits, including memory loss and difficulty with familiar tasks, have led to occupational challenges and subsequent unemployment. Attempts at cognitive rehabilitation have not shown benefits, and vertigo complicates his clinical picture. He has been let go from multiple jobs and has had difficulty obtaining SSDI Anxiety: On zoloft 25mg daily. Still with fairly bad anxiety. continues on clonazepam twice daily. CAD: following with cardiology. On rosuvastatin Urology: Bladder retention, dysuria, ED. Following with urology. recent cologuard positive. ROS see HPI PHYSICAL EXAM: GENERAL: Alert and oriented x 3. NAD EYES: EOMI. Anicteric. HENT: Moist mucous membranes. No scleral icterus. No cervical lymphadenopathy. LUNGS: Clear to auscultation bilaterally. CARDIOVASCULAR: Regular rate and rhythm. No murmur. No JVD. ABDOMEN: Soft, non-tender +bs EXTREMITIES: No edema. Non-tender. SKIN: No rashes or lesions. Warm. NEUROLOGIC: No focal neurological deficits. CN II-XII grossly intact PSYCHIATRIC: Cooperative. Appropriate mood and affect [facility] Family History Father No problems noted. Mother No problems noted. Social History Housing: House Alcohol intake: former Patient Tobacco Use Status: Current everyday Tobacco user e-Cigarette/Vaping Use: Currently Using service: No Current occupational status: retired Cognitive needs: No Hearing needs: No Vision needs: No Questionnaire PHQ-9 Over the last 2 weeks, how often have you been bothered by any of the following problems? 1. Little interest or pleasure in doing things: not at all 2. Feeling down, depressed, or hopeless: nearly every day (bad anxiety ) 3. Trouble falling or staying asleep, or sleeping too much: nearly every day 4. Feeling tired or having little energy: nearly every day 5. Poor appetite or overeating: nearly every day (poor appetite) 6. Feeling bad about yourself - or that you are a failure or have let yourself or your family down: not at all 7. Trouble concentrating on things, such as reading the newspaper or watching television: not at all 8. Moving or speaking so slowly that other people could have noticed. Or the opposite - being so fidgety or restless that you have been moving around a lot more than usual: not at all 9. Thoughts that you would be better off or of hurting yourself in some way: not at all Total score: 12 Depression Screening Interpretation: Positive Depression Screening Follow-up: Change in Medication Depression Screening Done: Yes 74684 - PHQ-9 Billing: Yes Source: Developed by Drs. Doug Schneider, Luli Chakraborty, George Cheatham and colleagues, with an educational theo from [employer]. Thrive Questionnaire Date Thrive assessed: 12/25/24 I am a: Patient Within the past 12 months, did the food you bought not last and you didn't have the money to get more?: Never true Within the past 12 months, did you worry whether your food would run out before you got money to buy more?: Never true Do you have trouble paying for medicines?: No Do you have trouble getting transportation to medical appointments?: No Do you have trouble paying your heating and electricity bill?: No Do you have trouble taking care of your child, family member or friend?: No Do you have trouble with day-to-day activities such as bathing, preparing meals, shopping, managing finances, etc.?: No Are you currently unemployed and looking for a job?: No Are you interested in more education?: No THRIVE Score: 0 AUDIT C Alcohol Use Questionnaire (AUDIT-C) 1. How often do you have a drink containing alcohol?: Never 3. How often do you have six or more drinks on one occasion?: Never Total Score: 0 SARAHY-7 AMB Questionnaire SARAHY-7 Date SARAHY - 7 assessed: 12/25/24 Feeling nervous, anxious, or on edge: 3 = Nearly every day Not being able to stop or control worryin = Not at all Worrying too much about different things: 0 = Not at all Trouble relaxin = Not at all Being so restless that it is hard to sit still: 0 = Not at all Becoming easily annoyed or irritable: 0 = Not at all Feeling afraid as if something awful might happen: 0 = Not at all Total SARAHY-7 score (0-4 normal; 5-9 mild; 10-14 moderate; 15-21 severe): 3 Source: Developed by Drs. Doug Schneider, Luli Chakraborty, George Cheatham and colleagues, with an educational theo from [employer]. Physical exam (Primary Care) Vital Signs: Last Vital Signs Temp 98.5 F 12/25/24 09:39 Pulse 75 12/25/24 09:39 BP 118/74 12/25/24 09:39 Pulse Ox 98 12/25/24 09:39 Oxygen Delivery Method Room Air 12/25/24 09:39 BMI result Body Mass Index 21.5 Tobacco/Smoking Status: Tobacco use Status Tobacco use date assessed 12/25/24 12/25/24 09:42 Patient Tobacco Use Status Current everyday Tobacco 12/25/24 09:42 e-Cigarette/Vaping Use Currently Using 12/25/24 09:42 PHQ-9: PHQ-9 Score PHQ-9: Total score 12 12/25/24 11:35 Depression Screening Interpretation: Positive Depression Screening Follow-up: Change in Medication Thrive Assessment: Date of Thrive Assessment Date Thrive assessed 12/25/24 12/25/24 09:42 Coding Level of Care Code Est Pt Level 4 (18714) Complex EM visit Add On G2211 Diagnoses Weight loss, abnormal R63.4 Sweating abnormality L74.9 Cognitive dysfunction F09 Additional Codes PHQ-9 - 45101 - PHQ-9 Billing: Yes ([id number]) Assessment & Plan Assessment & Plan (1) Weight loss, abnormal: Code(s): R63.4 - Abnormal weight loss Category: Medical (2) Sweating abnormality: Code(s): L74.9 - Eccrine sweat disorder, unspecified Category: Medical (3) Cognitive dysfunction: Code(s): F09 - Unspecified mental disorder due to known physiological condition Category: Medical Plan sweating, weight loss-labs ordered, consider CT chest abd pelvis if any further weight loss. upcoming gi consult for positive cologuard History of TBI, post concussive syndrome-should be eligible for SSDI-he has had trouble holding down work despite earnest attempts Depression & anxiety-increase sertraline to 50mg daily Orders: Orders TSH reflex Free T4 12/26/24 L74.9 - Eccrine sweat disorder, unspecified, R63.0 - Anorexia, R63.4 - Abnormal weight loss Complete Blood Count Auto Diff 12/26/24 L74.9 - Eccrine sweat disorder, unspecified, R63.0 - Anorexia, R63.4 - Abnormal weight loss Comprehensive Met. Panel 12/26/24 L74.9 - Eccrine sweat disorder, unspecified, R63.0 - Anorexia, R63.4 - Abnormal weight loss Hemoglobin A1c 12/26/24 L74.9 - Eccrine sweat disorder, unspecified, R63.0 - Anorexia, R63.4 - Abnormal weight loss IRON PROFILE 12/26/24 L74.9 - Eccrine sweat disorder, unspecified, R63.0 - Anorexia, R63.4 - Abnormal weight loss Magnesium 12/26/24 L74.9 - Eccrine sweat disorder, unspecified, R63.0 - Anorexia, R63.4 - Abnormal weight loss Medications: New sertraline 50 mg PO DAILY 90 tabs 3RF Discontinued sertraline Take 1/2 tab oral once daily then increase to one tab oral once daily Discontinued Reason: Doctor's Order 25 mg PO DAILY 90 tabs 3RF
--- OUTSIDE RECORDS SUMMARY | 2024-12-25 12:21 | XMS_ITS | Patient Health Record ---
Author Organization Ivan Schultz MD Address [address] [address] REASON FOR REFERRAL No Information PLAN OF TREATMENT No Information
== END 2024-12-25 12:01 | disposition home or self-care (01) ==
LOC: HO.HMCHD 11:23
PROVIDERS: PCP Internal Medicine; Visit Provider Internal Medicine
DX: R63.4 Abnormal weight loss (principal); L74.9 Eccrine sweat disorder, unspecified; F09 Unspecified mental disorder due to known physiological condition

== ENCOUNTER → 2024-12-25 11:22 | Outpatient (BNVA) | payer OTHER, SELFPAY | PROVIDERS: PCP Internal Medicine; Visit Provider Internal Medicine | DX: L74.9 Eccrine sweat disorder, unspecified (principal); R63.4 Abnormal weight loss; Z68.21 Body mass index [BMI] 21.0-21.9, adult; F09 Unspecified mental disorder due to known physiological condition; I25.10 Atherosclerotic heart disease of native coronary artery without angina pectoris; F41.9 Anxiety disorder, unspecified; R33.9 Retention of urine, unspecified; R30.0 Dysuria; N52.9 Male erectile dysfunction, unspecified; G43.909 Migraine, unspecified, not intractable, without status migrainosus; G31.84 Mild cognitive impairment of uncertain or unknown etiology; Z79.899 Other long term (current) drug therapy; Z13.31 Encounter for screening for depression; Z13.39 Encounter for screening examination for other mental health and behavioral disorders | CPT/HCPCS: 96127; 99212 ==

== ENCOUNTER 2024-12-26 06:26 | Outpatient (REF) | payer OTHER, SELFPAY ==
[2024-12-26 06:38] LABS: MANUAL DIFF FLAG NO
[2024-12-26 07:07] LABS: Hematocrit 38.2 % (42.0-52.0); Hemoglobin 12.6 g/dl (14.0-18.0); Imm Gran Abs Auto 0.01 X10*3/uL (0.00-0.03); Imm Gran Pct Auto 0.1 % (0.0-0.4); Lymphocytes Absolute Auto 4.0 X10*3/uL (1.2-4.9); Mean Corpuscular HGB Conc 33.0 g/dl (31.0-36.0); Mean Corpuscular Hemoglobin 29.7 pg (27.0-33.0); Mean Corpuscular Volume 90.1 fL (80.0-98.0); NRBC Abs Auto 0.000 X10*3/uL (0.0-0.012); NRBC Pct Auto 0.0 /100WBC (0.0-0.2); Platelet Count 255 X10*3/uL (160-400); Red Blood Count 4.24 X10*6/uL (4.60-5.80); White Blood Count 8.7 X10*3/uL (4.8-10.8)
[2024-12-26 07:16] LABS: Hemoglobin A1C 121.3552 umol/L; Total Hemoglobin (HGBA1C) 3331.8122 umol/L
[2024-12-26 07:41] LABS: Alanine Aminotransferase 23 U/L (0-40); Albumin Level 4.1 g/dL (3.5-5.0); Alkaline Phosphatase 120 U/L (39-117); Anion Gap 11 (12-20); Aspartate Amino Transferase 25 U/L (5-37); Blood Urea Nitrogen 16 mg/dL (9-16); Calcium 9.0 mg/dL (8.4-10.2); Carbon Dioxide 27 mmol/L (22-29); Chloride 106 mmol/L (96-108); Estimated Glomerular Filt Rate > 60; Iron 69 mcg/dL (45-160); Magnesium 2.1 mg/dL (1.6-2.6); Percent Iron Saturation 22 % (15-50); Potassium 4.0 mmol/L (3.3-5.1); Sodium 140 mmol/L (135-145); Total Iron Binding Capacity 320 mcg/dL (228-428); Total Protein 6.8 g/dL (6.5-8.0); Unsaturated Iron Binding 251 ug/dL
== END 2024-12-26 06:27 | disposition home or self-care (01) ==
LOC: HO.LAB 06:26
PROVIDERS: PCP Internal Medicine; Visit Provider Internal Medicine
DX: R63.0 Anorexia (principal); R63.4 Abnormal weight loss; L74.9 Eccrine sweat disorder, unspecified
CPT/HCPCS: 36415; 80053; 83036; 83540; 83735; 84443; 85025

== ENCOUNTER 2025-01-10 10:04 | Outpatient (REF) | payer OTHER, SELFPAY ==
--- NOTE | ~2025-01-10 | CT_ITS ---
CLINICAL HISTORY: R51.9 - Headache, unspecified CT head without contrast Comparison: CT/REG/SR - CT HEAD/BRAIN WO IV CON - 06/29/22 15:52 EST Findings: No intra-axial mass, midline shift, hydrocephalus, or acute hemorrhage. No significant atrophy-like change or white matter disease. There is no sinus or mastoid fluid. The orbits are unremarkable. No skull fracture. IMPRESSION: 1. No acute intracranial findings. This document has been electronically signed by: Joce Malin DO on 01/12/2025 11:12:22
== END 2025-01-10 10:05 | disposition home or self-care (01) ==
LOC: HO.CT 10:04
PROVIDERS: PCP Internal Medicine; Visit Provider Nurse Practitioner Family
DX: R51.9 Headache, unspecified (principal); R26.89 Other abnormalities of gait and mobility; R42 Dizziness and giddiness; S06.0XAD Concussion with loss of consciousness status unknown, subsequent encounter
CPT/HCPCS: 70450

== ENCOUNTER → 2025-01-10 10:05 | Outpatient (BNV) | payer OTHER, SELFPAY | PROVIDERS: PCP Internal Medicine; Visit Provider Family Medicine | DX: R51.9 Headache, unspecified (principal) | CPT/HCPCS: 70450 ==

== ENCOUNTER 2025-01-29 07:57 | Outpatient (AMB) | payer OTHER, SELFPAY ==
--- NOTE | 2025-01-29 07:57 | A.OFFVIS_ITS ---
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 Patient is accompanied by his who assists with history. Pt reports the Ubrelvy has been helpful for his headaches. Amitriptyline was discontinued per recommendation of Cardiology as patient has orthostatic hypotension. He does have mild anemia, the recent iron studies, B12/folate were within normal limits. The patient, however, is more concerned with his cognitive difficulties. He has lost another job due to his short-term memory lapses. He continues to have significant anxiety as well. He reports it is difficult to accept that he has not been able to maintain employment, as he has been working since high school. He endorses stress related to financial constraints, as he is not working. Today, he states that he always struggled in school. It took him longer to understand what he was reading. He left school in the 12th grade, as he needed to go to work, and he felt that he was not going to gradually any ways. He also endorses a family history of dementia, likely Alzheimer's. He states that his sister has started to have significant cognitive difficulties. 07/30/2024, Previous HPI: The patient is a 54-year-old male presenting with chronic migraine and cognitive impairment in the context of post-concussion syndrome. Following a work-related concussion two years ago, the patient has experienced daily migraines, light and noise sensitivity, irritability, and nausea, requiring frequent use of Aleve. Cognitive deficits, including memory loss and difficulty with familiar tasks, have led to occupational challenges and subsequent unemployment. Attempts at cognitive rehabilitation have not shown benefits, and vertigo complicates his clinical picture. The patient displays significant anxiety, particularly related to claustrophobic experiences such as attempting an MRI. This anxiety is compounded by difficulty in adhering to treatments due to medical phobias. He reports a probable myocardial infarction within the past year with cardiac catheterization findings of segmental dysfunction, contributing to erectile dysfunction concerns post-procedure. In addition, the patient is on cholesterol- lowering medication to manage elevated cholesterol levels. Sleep disturbances further exacerbate his overall condition, with a pattern of mid-night awakenings resistant to amitriptyline, attempted for sleep aid. Recently, he incurred a thumb injury, resulting in swelling and potential infection, though hospital aversion delayed initial care. Review of Systems- Neurological: Reports dizziness, lightheadedness. - HEENT: Reports bilateral pounding headaches. - Cardiovascular: Reports resolved mild myocardial dysfunction post-infarction. - Gastrointestinal: Reports chronic nausea, past stomach issues. - Musculoskeletal: Reports thumb injury with swelling. - Genitourinary: Reports erectile dysfunction post-catheterization. - Psychiatric: Reports anxiety, paranoia, sleep disturbances. [facility] Family History Father No problems noted. Mother No problems noted. Social History Housing: House Alcohol intake: former Patient Tobacco Use Status: Current everyday Tobacco user e-Cigarette/Vaping Use: Currently Using service: No Current occupational status: retired Cognitive needs: No Hearing needs: No Vision needs: No Physical Exam Vital Signs: Last Vital Signs Pulse 62 01/29/25 07:58 BP 110/70 01/29/25 07:58 Pulse Ox 98 01/29/25 07:58 Oxygen Delivery Method Room Air 01/29/25 07:58 BMI result Body Mass Index 21.5 Const General: cooperative and no acute distress Orientation/consciousness: patient oriented x3 Resp Effort & Inspection: normal respiratory effort and able to speak in complete sentences Neuro Other: - Appearance: Appropriate appearance for age; cooperative. - Mood and Affect: Exhibits anxiety; mood dysregulated concerning past trauma and sleep disturbance. - Orientation: Oriented to person, place, and time. - Cognition: Notable cognitive impairments, including memory deficits; diminished attention. - Thought Process: Logical thought flow; apparent displacement in reasoning possibly related to the anxiety. General: patient oriented x3 Cranial nerves: Yes CN's II-XII intact bilaterally Psych Appearance: grossly normal Speech and movement: Normal speech and movement present Attitude: cooperative Orientation What is the (year) (season) (date) (day) (month)?: year, season, date, day and month Where are we (state) (county) (town or city) (hospital) (floor)?: state, town or city, hospital/clinic and floor Registration Name of 3 unrelated objects clearly and slowly, then ask patient to repeat all 3 of them. (1st repeat determines score. Make sure they can repeat all three): object 1, object 2 and object 3 Attention & Calculation (CHOOSE ONE) Spell WORLD backwards (DLROW): 5 letters Recall Ask patient to repeat the 3 items from question #3.: object 2 and object 3 Language Show patient a wristwatch & ask what it is. Repeat for pencil.: watch and pencil Ask the patient to repeat the phrase 'No ifs, ands, or buts' after you.: incorrect Ask the patient to 'take a piece of paper with their right hand' 'fold paper in half' 'place paper on floor': take paper in right hand, fold paper in half and place paper on floor Print the sentence 'CLOSE YOUR EYES' on a piece. If patient actually closes eyes then score.: followed written direction Give patient a blank piece of paper & ask to write a sentence. Score if it contains a noun & verb.: sentence contains subject and verb Score Score: 26 Results Reviewed Results Reviewed: Laboratory Tests 09/24/24 12/26/24 10:13 06:37 WBC 8.7 RBC 4.24 L Hgb 12.6 L Hct 38.2 L BUN 16 Creatinine 0.75 Hemoglobin A1c % 5.5 Iron 69 TIBC 320 % Saturation 22 Unsat Iron Binding 251 AST 25 ALT 23 Alkaline Phosphatase 120 H Vitamin B1 14 Vitamin B12 539 Folate 14.1 TSH 2.05 Assessment & Plan Assessment & Plan (1) Postconcussive syndrome: Code(s): F07.81 - Postconcussional syndrome Category: Medical (2) Cognitive dysfunction: Code(s): F09 - Unspecified mental disorder due to known physiological condition Category: Medical (3) Migraine without aura: Code(s): G43.009 - Migraine without aura, not intractable, without status migrainosus Category: Medical Qualifiers: Status migrainosus presence: without status migrainosus Intractability: not intractable Qualified Code(s): G43.009 - Migraine without aura, not intractable, without status migrainosus (4) Anemia: Code(s): D64.9 - Anemia, unspecified Category: Medical Qualifiers: Anemia type: unspecified type Qualified Code(s): D64.9 - Anemia, unspecified (5) Vitamin D deficiency: Code(s): E55.9 - Vitamin D deficiency, unspecified Category: Medical Plan For overall health, cognition, dizziness and migraine: * Continue to optimize overall lifestyle factors, such as eating healthy diet, engaging regular physical activity as tolerated, maintaining a regular bedtime routine. * As patient has ongoing anemia, we will check follow-up labs. * Follow-up with cardiology as scheduled For cognitive difficulties: * Patient advised to undergo PET brain beta amyloid scan to assess for central amyloid pathology, as patient would be a candidate for anti-amyloid targeted Alzheimer's therapy, such as [place] or [place], if evidence of amyloid pathology is present. * September 2024 TSH, B12, folate- within normal limits * MMSE conducted today: * We will also request comprehensive neuro psychiatry evaluation to assess extent to patient's cognitive difficulties, as well as patient's strengths and weaknesses. For migraine prevention: * Continue Riboflavin 400mg qam * Continue Magnesium 400mg qhs. * Previous migraine prevention trials: Amitriptyline- discontinue due to orthostatic hypotension. * Migraine prevention contraindications: All antihypertensive treatments due to orthostatic hypotension For acute tx of migraine headache: * Continue Ubrogepant (Ubrelvy) 100mg tab, 1/2 - 1 tab (50-100mg) at onset of migraine headache, may repeat in 2 hours. Max of 2 tabs (200mg) per 24 hours. * May adjunct with OTC Tylenol 650mg q 4 hours, Ibuprofen 600mg q 6 hours, or Naproxen 440mg q 12 hrs prn. Potential adverse effects, include but are not limited to fatigue, nausea, dry mouth, constipation * Acute migraine treatment contraindications: All triptans and DHE due to right bundle branch block, abnormal echocardiogram Report any worsening symptoms or other concerns promptly. Will follow-up upon review of above and patient to follow-up in clinic in 3-4 months or sooner prn. Orders: Orders PET Brain beta amyloid 01/29/25 F09 - Unspecified mental disorder due to known physiological condition, R41.3 - Other amnesia, Z82.0 - Family history of epilepsy and other diseases of the nervous system Syphilis Screen Today D64.9 - Anemia, unspecified, E55.9 - Vitamin D deficiency, unspecified, F09 - Unspecified mental disorder due to known physiological condition Vitamin D 25-OH (D2 and D3) 3 Months D64.9 - Anemia, unspecified, E55.9 - Vitamin D deficiency, unspecified, F09 - Unspecified mental disorder due to known physiological condition Ferritin 01/29/25 D64.9 - Anemia, unspecified Homocysteine Today D64.9 - Anemia, unspecified, E55.9 - Vitamin D deficiency, unspecified, F09 - Unspecified mental disorder due to known physiological condition Methylmalonic Acid Today D64.9 - Anemia, unspecified, E55.9 - Vitamin D deficiency, unspecified, F09 - Unspecified mental disorder due to known physiological condition Vitamin B12 and Folate Today D64.9 - Anemia, unspecified, E55.9 - Vitamin D deficiency, unspecified, F09 - Unspecified mental disorder due to known physiological condition Referrals Neuropsychiatry Referral D64.9 - Anemia, unspecified, F07.81 - Postconcussional syndrome, F09 - Unspecified mental disorder due to known physiological condition Medications: Refilled ubrogepant (Ubrelvy) take at onset of migraine, may repeat in 2hrs (may take w/ Aleve) 50 - 100 mg (0.5 - 1 x 100 mg) PO ONCE PRN 16 tabs 6RF migraine headache 30 days Coding Level of Care Code Est Pt Level 4 (53085) Complex EM visit Add On G2211 Diagnoses Postconcussive syndrome F07.81 Cognitive dysfunction F09 Migraine without aura and without status migrainosus, not intractable G43.009 Status migrainosus presence: without status migrainosus Intractability: not intractable Anemia, unspecified type D64.9 Anemia type: unspecified type Vitamin D deficiency E55.9
[2025-01-29 07:58] VITALS: BP 110/70; PULSE 62; O2SAT 98; BMI 21.5
--- OUTSIDE RECORDS SUMMARY | 2025-01-29 08:00 | XMS_ITS | Patient Health Record ---
Author Organization Ivan Schultz MD Address [address] [address] REASON FOR REFERRAL No Information PLAN OF TREATMENT No Information
== END 2025-01-29 08:54 | disposition home or self-care (01) ==
PROVIDERS: PCP Internal Medicine; Visit Provider Nurse Practitioner Family
DX: D64.9 Anemia, unspecified (principal); F07.81 Postconcussional syndrome; F09 Unspecified mental disorder due to known physiological condition; G44.309 Post-traumatic headache, unspecified, not intractable; E55.9 Vitamin D deficiency, unspecified
CPT/HCPCS: 99214

== ENCOUNTER → 2025-01-29 07:57 | Outpatient (BNVA) | payer OTHER, SELFPAY | PROVIDERS: PCP Internal Medicine; Visit Provider Nurse Practitioner Family | DX: G43.009 Migraine without aura, not intractable, without status migrainosus (principal); D64.9 Anemia, unspecified; E55.9 Vitamin D deficiency, unspecified | CPT/HCPCS: 99212 ==

== ENCOUNTER 2025-02-06 10:15 | Outpatient (AMB) | payer OTHER, SELFPAY ==
--- NOTE | 2025-02-06 10:21 | A.OFFVIS_ITS ---
Vital Signs 02/06/25 10:31 Height 5 ft 7 in Weight 137 lb BMI 21.5 BP 90/63 Blood Pressure Location Lt brachial Position Sitting Pulse 62 Pulse Oximetry (%) 98 Oxygen Delivery Method Room Air Intake Visit Reasons: + Cologuard. Intake Note: Patient new consult for positive Cologuard./ Pre Colonoscopy Patient cc: constipation with hard stool, swallowing difficulty and acid reflux on and off. 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 Accompanied by: Family/Other Allergies No Known Allergies (No Known Allergies*) Allergy (Verified 02/06/25 10:21) Medication List - Last Reconciled 02/06/25 by Pam Arenas CNP baclofen 10 mg PO BEDTIME clonazepam 0.5 mg PO BEDTIME clonazepam 1 mg PO BID magnesium oxide 400 mg PO BEDTIME 90 days methadone 100 mg PO DAILY midodrine 2.5 mg PO TID omeprazole 40 mg PO DAILY riboflavin (vitamin B2) 400 mg PO DAILY 90 days rosuvastatin (Crestor) 10 mg PO DAILY sertraline 50 mg PO DAILY ubrogepant (Ubrelvy) 50 - 100 mg (0.5 - 1 x 100 mg) PO ONCE PRN 30 days HPI HPI + Cologuard.: Details: Patient is a 54-year-old male with PMH of migraines, hyperlipidemia and sleep disturbance. Referred by PCP for positive Cologuard. Joseph completed Cologuard test on November 07, 2024, as part of colon cancer screening, with positive findings. He is accompanied by his . He reports long-standing issues with constipation, with bowel movements occurring approximately 1-2 times weekly. Symptoms are described as hard, painful stools requiring significant straining, with associated abdominal pain severe enough to cause fainting on occasion. He denies visible blood in the stool but notes nausea and exacerbated abdominal discomfort if he eats while constipated. These symptoms temporarily improve after bowel movements. He uses pqzh-vzr-namncol fiber supplements inconsistently, which help when taken but are not used daily. Joseph is concerned about persistent reflux symptoms despite taking omeprazole 40 mg daily( increased from 20mg one month ago), with difficulties especially at night, describing breakthrough regurgitation of food or liquid, occasional coughing with liquids, and trouble swallowing solids and liquids for several months. He denies recent fever, chills, or significant weight loss, though he perceives weight changes. He also experiences occasional severe heartburn despite adherence to his omeprazole regimen. Joseph has been on methadone 100 mg daily for over two years as part of opioid addiction recovery, which is a known contributing factor to his constipation. He denies recent drug or alcohol use, though he is a recovering heroin user. His last cardiac catheterization was in January 2024, performed following an acute episode of vomiting suspected to involve minor cardiac symptoms. Since then, he has had stable cardiovascular management. Patient denies: fever/chills, n/v, appetite changes, unintentional wt loss or melena/hematochezia. Social hx: -denies ETOH use -Recovering heroin user; on methadone for over 2 years, denies other recreational drug use -current 1-2 cig/day, recent reduction and aiming for cessation. - family hx as below -denies personal hx of CA -tolerated anesthesia in the past without difficulty. [facility] Medical History (Updated 02/06/25 @ 12:51 by Pam Arenas CNP) Constipation Acid reflux Surgical History (Updated 02/06/25 @ 10:34 by Corrie Sidhu) History of injury of penis History of throat surgery History of nasal surgery Family History (Updated 02/06/25 @ 10:59 by Pam Arenas CNP) Father No problems noted. Mother Diverticular disease of colon Social History Housing: House Alcohol intake: former Patient Tobacco Use Status: Current everyday Tobacco user e-Cigarette/Vaping Use: Currently Using service: No Current occupational status: retired Cognitive needs: No Hearing needs: No Vision needs: No Review of Systems Const Reports as per HPI ENT Reports as per HPI Card Reports as per HPI Resp Reports as per HPI GI Reports as per HPI Reports as per HPI Physical Exam Vital Signs: Last Vital Signs Pulse 62 02/06/25 10:31 BP 90/63 02/06/25 10:31 Pulse Ox 98 02/06/25 10:31 Oxygen Delivery Method Room Air 02/06/25 10:31 BMI result Body Mass Index 21.5 Const General: healthy appearing, no acute distress and well developed Nutritional Appearance: average body habitus Orientation/consciousness: patient oriented x3 HEENT Head: Yes normal to inspection, Yes normocephalic and Yes atraumatic Face and sinus: Yes normal facial exam Eyes General: appearance normal, both eyes and all related structures Neck Neck: Yes normal visual inspection Resp Effort & Inspection: normal respiratory effort, able to speak in complete sentences, no tracheal deviation and symmetric chest movement GI Inspection: Yes normal to inspection and No distended Palpation (GI): Soft to palpation, not firm, nontender and No hepatosplenomegaly present Auscultation: Hyperactive bowel sounds present Neuro General: patient oriented x3 Gait exam (Neuro): Normal gait present Psych Appearance: grossly normal Mental Status: mental status grossly normal Speech and movement: Normal speech and movement present Affect: normal affect Attitude: cooperative Thought process: Normal thought process present Thought content: Normal thought content present Insight: Good insight present (Psych) Judgement: Good judgement present (Psych) Assessment & Plan Assessment & Plan (1) Positive colorectal cancer screening using Cologuard test: Comment: Collected November 07, 2024 Code(s): R19.5 - Other fecal abnormalities Category: Medical Plan: High specificity of test necessitates diagnostic colonoscopy to exclude malignancy, polyps, or other pathology (e.g., diverticulosis). Educated that effective constipation management is critical to ensure adequate bowel prep and diagnostic yield for colonoscopy. Additional Testing: Colonoscopy to assess for colorectal pathology. Ensure cardiac clearance given history and methadone-related anesthetic resistance. Medications: -prescriptions for laxative tablets and PEG sent to pharmacy; instructions for Gatorade purchase and clear liquid diet given. Patient educated on scheduling process, procedure preparation, including avoiding certain foods and ensuring clear liquid intake Advised on necessity for ride post-procedure due to sedation. Follow-Up: Colonoscopy within 8 weeks with results and further steps to be determined after results. (2) Acid reflux: Code(s): K21.9 - Gastro-esophageal reflux disease without esophagitis Category: Medical Qualifiers: Esophagitis presence: esophagitis presence not specified Qualified Code(s): K21.9 - Gastro-esophageal reflux disease without esophagitis Plan: Patient experiencing nighttime GERD symptoms despite optimized PPI therapy. Additional Testing: Upper endoscopy recommended at the time of colonoscopy for further evaluation of esophageal and gastric involvement. Medication Management: -Continue omeprazole 40 mg daily. -Add famotidine 20 mg PRN for breakthrough symptoms, especially at bedtime. Encouraged to take omeprazole as prescribed, taken at least 30-60 minutes before a meal. Education on GERD prevention : -Advised against heavy meals; encouraged small meals instead of large ones. - Instructed to remain upright for 2?3 hours after eating. - Advised to avoid late-night meals, spicy foods, caffeine, alcohol, known dietary triggers, and tight-fitting clothing. - Emphasis placed on gradual implementation of lifestyle changes to improve adherence and symptom control. Follow-Up: Evaluate after endoscopy findings. (3) Constipation: Code(s): K59.00 - Constipation, unspecified Category: Medical Qualifiers: Constipation type: drug induced constipation Qualified Code(s): K59.03 - Drug induced constipation Plan: Chronic constipation in the context of long-term methadone therapy. Symptoms correlate with inadequate fiber and hydration management. Additional Testing: follow-up pattern after initiating therapy. Medication Management: -Start polyethylene glycol (PEG) (Miralax) at 17 g daily. -Add docusate as a stool softener nightly. -Continue OTC fiber supplements but emphasize consistent use. Lifestyle Recommendations: -Increase water intake, integrate dietary fiber from the provided guide, and consider probiotics to support gut microbiome health. -Reduce reliance on constipating foods. Follow-Up: Contact clinic in 4 weeks if constipation remains uncontrolled. Plan Follow-up after endoscopy or sooner as needed Time: I spent a total of 45 minutes on the date of encounter which includes: Preparing to see the patient (reviewed previous documentation, test results and medical history) Performing a medically appropriate exam and/or evaluation Ordering medications, tests, and procedures Documenting clinical information in the health record Orders: Referrals GI Procedure Notification K21.9 - Gastro-esophageal reflux disease without esophagitis, R19.5 - Other fecal abnormalities Medications: New peg 3350-electrolytes [id number] -5.86 gram until fecal effluent is clear 240 mL PO Q10M 4,000 mL 0RF polyethylene glycol 3350 (Miralax) Take 17G (one cap full) daily with 8oz of water 17 grams PO DAILY 510 grams 2RF constipation 30 days docusate sodium Take one tablet at bedtime 100 mg PO BEDTIME 90 caps 1RF constipation famotidine Take one tablet as needed for acid reflux 20 mg PO DAILY PRN 90 tabs 0RF GERD bisacodyl Take per colonoscopy instructions 5 mg PO BID 4 tabs 0RF simethicone (Gas Relief (simethicone)) per colonoscopy prep instructions 125 mg PO ONCE 4 caps 0RF abdominal distention Coding Level of Care Code New Pt New Pt Level 4 (68860) Patient Type New Diagnoses Positive colorectal cancer screening using Cologuard test R19.5 Gastroesophageal reflux disease, unspecified whether esophagitis present K21.9 Esophagitis presence: esophagitis presence not specified Drug-induced constipation K59.03 Constipation type: drug induced constipation
[2025-02-06 10:31] VITALS: BP 90/63; PULSE 62; O2SAT 98; BMI 21.5
--- OUTSIDE RECORDS SUMMARY | 2025-02-06 11:17 | XMS_ITS | Patient Health Record ---
Author Organization Ivan Schultz MD Address [address] [address] REASON FOR REFERRAL No Information PLAN OF TREATMENT No Information
== END 2025-02-06 11:21 | disposition home or self-care (01) ==
LOC: HO.HGI 10:15
PROVIDERS: PCP Internal Medicine; Visit Provider Nurse Practitioner Family
DX: R19.5 Other fecal abnormalities (principal); K21.9 Gastro-esophageal reflux disease without esophagitis; K59.03 Drug induced constipation
CPT/HCPCS: 99204

== ENCOUNTER → 2025-02-06 10:15 | Outpatient (BNVA) | payer OTHER, SELFPAY | PROVIDERS: PCP Internal Medicine; Visit Provider Nurse Practitioner Family | DX: K21.9 Gastro-esophageal reflux disease without esophagitis (principal); R19.5 Other fecal abnormalities; K59.03 Drug induced constipation | CPT/HCPCS: 99202 ==

== ENCOUNTER 2025-02-09 10:42 | Outpatient (AMB) | payer OTHER, SELFPAY ==
[2025-02-09 11:03] VITALS: BP 100/68; PULSE 70; TEMP 36.6; O2SAT 98; BMI 21.3
--- NOTE | 2025-02-09 11:03 | MHC.PC.OV ---
Vital Signs 02/09/25 11:03 Height 5 ft 7 in Weight 136 lb BMI 21.3 BP 100/68 Blood Pressure Location Lt brachial Position Sitting Pulse 70 Pulse Source Pulse Oximeter Temp 97.9 F Temp Source Temporal Artery Scan Pulse Oximetry (%) 98 Oxygen Delivery Method Room Air Intake Visit Reasons: Routine /3 Week F/U from [place] [employer] Required: No Accompanied by: Spouse Allergies No Known Allergies (No Known Allergies*) Allergy (Verified 02/09/25 11:03) Medication List - Last Reconciled 02/09/25 by MOHNIDER Harrison baclofen 10 mg PO BEDTIME bisacodyl 5 mg PO BID clonazepam 0.5 mg PO BEDTIME clonazepam 1 mg PO BID docusate sodium 100 mg PO BEDTIME famotidine 20 mg PO DAILY PRN magnesium oxide 400 mg PO BEDTIME 90 days methadone 100 mg PO DAILY midodrine 2.5 mg PO TID omeprazole 40 mg PO DAILY peg 3350-electrolytes 236-22.74-6.74 -5.86 gram 240 mL PO Q10M polyethylene glycol 3350 (Miralax) 17 grams PO DAILY 30 days riboflavin (vitamin B2) 400 mg PO DAILY 90 days rosuvastatin (Crestor) 10 mg PO DAILY sertraline 50 mg PO DAILY simethicone (Gas Relief (simethicone)) 125 mg PO ONCE ubrogepant (Ubrelvy) 50 - 100 mg (0.5 - 1 x 100 mg) PO ONCE PRN 30 days Tobacco use date assessed: 02/09/25 Dental Screening Dental Screen Date: 02/09/25 Did you have a dental visit in the last 12 months?: Yes Did you have a dental problem in the last 6 months where you did not have access to dental care?: No HPI HPI Comments History of Present Illness Details The patient is a 54-year-old male with history of substance abuse on Methadone, multiple concussions with cognitive dysfunction, Chronic headache, anxiety, urinary retention, and anemia presenting with to establishe care for multiple chronic conditions including hypertension, headaches, and urinary retention. He is under cardiology care for hypotension and electrocardiogram abnormalities and sees a neurologist for headaches. He consults a urologist for urinary retention, characterized by prolonged urination times. A positive Cologuard test has led to a separator inserter referral, with a colonoscopy planned to rule out malignancy with colonoscopy. . The patient is aware of the false positive rate of Cologuard tests. He has chronic anemia, noted during a blood count in December, with normal liver and kidney functions, except for slightly elevated alkaline phosphatase levels. Thyroid function is normal, but testosterone levels are low. Psychiatric evaluation includes depression and anxiety, managed with sertraline and clonazepam. The patient reports a lifelong history of depression. He is managed by Psychiatrist. 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 He has follow up appointments with all of his specialists [facility] Medical History (Updated 02/09/25 @ 13:09 by MOHINDER Harrison) Acid reflux Constipation History of substance abuse MDD (major depressive disorder), recurrent, in partial remission Surgical History History of injury of penis History of nasal surgery History of throat surgery Family History Father No problems noted. Mother Diverticular disease of colon Social History Housing: House Alcohol intake: former Patient Tobacco Use Status: Current everyday Tobacco user e-Cigarette/Vaping Use: Currently Using service: No Current occupational status: retired Cognitive needs: No Hearing needs: No Vision needs: No Questionnaire PHQ-9 Over the last 2 weeks, how often have you been bothered by any of the following problems? 1. Little interest or pleasure in doing things: not at all 2. Feeling down, depressed, or hopeless: nearly every day (anxiety) 3. Trouble falling or staying asleep, or sleeping too much: not at all 4. Feeling tired or having little energy: nearly every day 5. Poor appetite or overeating: nearly every day 6. Feeling bad about yourself - or that you are a failure or have let yourself or your family down: not at all 7. Trouble concentrating on things, such as reading the newspaper or watching television: not at all 8. Moving or speaking so slowly that other people could have noticed. Or the opposite - being so fidgety or restless that you have been moving around a lot more than usual: not at all 9. Thoughts that you would be better off or of hurting yourself in some way: not at all Total score: 9 Source: Developed by Drs. Doug Schneider, Luli Chakraborty, George Cheatham and colleagues, with an educational theo from [employer]. Thrive Questionnaire Date Thrive assessed: 02/09/25 I am a: Patient Within the past 12 months, did the food you bought not last and you didn't have the money to get more?: Never true Within the past 12 months, did you worry whether your food would run out before you got money to buy more?: Never true Do you have trouble paying for medicines?: No Do you have trouble getting transportation to medical appointments?: No Do you have trouble paying your heating and electricity bill?: No Do you have trouble taking care of your child, family member or friend?: No Do you have trouble with day-to-day activities such as bathing, preparing meals, shopping, managing finances, etc.?: No Are you currently unemployed and looking for a job?: No Are you interested in more education?: No THRIVE Score: 0 AUDIT C Alcohol Use Questionnaire (AUDIT-C) 1. How often do you have a drink containing alcohol?: Never 3. How often do you have six or more drinks on one occasion?: Never Total Score: 0 SARAHY-7 AMB Questionnaire SARAHY-7 Date SARAHY - 7 assessed: 02/09/25 Feeling nervous, anxious, or on edge: 3 = Nearly every day Not being able to stop or control worryin = Not at all Worrying too much about different things: 0 = Not at all Trouble relaxin = Not at all Being so restless that it is hard to sit still: 0 = Not at all Becoming easily annoyed or irritable: 0 = Not at all Feeling afraid as if something awful might happen: 0 = Not at all Total SARAHY-7 score (0-4 normal; 5-9 mild; 10-14 moderate; 15-21 severe): 3 Source: Developed by Drs. Doug Schneider, George Chavarria and colleagues, with an educational theo from [employer]. Review of Systems Const Details: .CONSTITUTIONAL Negative HEAD/NECK Chronic headaches- Followed by Neurology EAR/NOSE/MOUTH/THROAT Negative RESPIRATORY Negative CARDIOVASCULAR Reports hypotension on Midodrine. BP today was 100/68 Denies recent chest pain. GASTROINTESTINAL Positive cologuard GENITOURINARY Reports urinary retention characterized by prolonged urination times NEUROLOGICAL Reports headaches and cognitive issues such as memory and concentration difficulties. Denies dizziness. PSYCHIATRIC Reports depression and anxiety. Denies suicidal ideation. Physical exam (Primary Care) Vital Signs: Last Vital Signs Temp 97.9 F 02/09/25 11:03 Pulse 70 02/09/25 11:03 BP 100/68 02/09/25 11:03 Pulse Ox 98 02/09/25 11:03 Oxygen Delivery Method Room Air 02/09/25 11:03 BMI result Body Mass Index 21.3 GENERAL Well developed, Well nourished, in no apparent distress HEENT Head-Normocephalic Eyes- PERRLA, EOMI, Conjuctiva clear, lids WNL Ears- Canals clear, TMs WNL Mouth/Throat-No lesions, no erythema, no exudate Neck- Supple, No lymphadenopathy, thyroid WNL RESPIRATORY Normal I:E, Clear to auscultation CARDIOVASCULAR Regular, rate and rhythm, No murmurs or rubs GASTROINTESTINAL Soft, nontender, normal bowel sounds, no masses GENITOURINARY No CVA tenderness NEUROLOGICAL Gait normal PSYCHIATRIC Oriented to person, place and time Mood and affect WNL Appearance WNL Speech WNL Thought processes WNL Tobacco/Smoking Status: Tobacco use Status Tobacco use date assessed 02/09/25 02/09/25 11:04 Patient Tobacco Use Status Current everyday Tobacco 02/09/25 11:04 e-Cigarette/Vaping Use Currently Using 02/09/25 11:04 PHQ-9: PHQ-9 Score PHQ-9: Total score 9 02/09/25 11:16 Thrive Assessment: Date of Thrive Assessment Date Thrive assessed 02/09/25 02/09/25 11:04 Coding Level of Care Code Established Pt Est Pt Level 4 (03531) Patient Type Established Diagnoses Hypotension, unspecified hypotension type I95.9 Hypotension type: unspecified hypotension type Abnormal echocardiogram R93.1 Hypogonadism in male E29.1 History of urinary hesitancy Z87.898 Anemia, unspecified type D64.9 Anemia type: unspecified type Migraine without aura and without status migrainosus, not intractable G43.009 Status migrainosus presence: without status migrainosus Intractability: not intractable Cognitive dysfunction F09 Postconcussive syndrome F07.81 Positive colorectal cancer screening using Cologuard test R19.5 History of substance abuse F19.11 MDD (major depressive disorder), recurrent, in partial remission F33.41 Time Spent (min) 35 Comment Time spent on chart review, medication reconciliation, H&P, patient education and orders. Assessment & Plan Assessment & Plan (1) Hypotension: Code(s): I95.9 - Hypotension, unspecified Category: Medical Qualifiers: Hypotension type: unspecified hypotension type Qualified Code(s): I95.9 - Hypotension, unspecified Plan: Patient is on Midodrine. BP today was 100/68. Will continue to follow up with cardiology. (2) Abnormal echocardiogram: Code(s): R93.1 - Abnormal findings on diagnostic imaging of heart and coronary circulation Category: Medical Plan: The patient is being monitored by cardiology for electrocardiogram abnormalities, with further evaluation as needed. (3) Hypogonadism in male: Code(s): E29.1 - Testicular hypofunction Category: Medical Plan: Patient is followed by Urology. (4) History of urinary hesitancy: Code(s): Z87.898 - Personal history of other specified conditions Category: Medical Plan: Patient is followed by Urology. (5) Anemia: Code(s): D64.9 - Anemia, unspecified Category: Medical Qualifiers: Anemia type: unspecified type Qualified Code(s): D64.9 - Anemia, unspecified Plan: Will continue to monitor. Patient to follow up in 3 months or sooner if symptoms persist or worsen. (6) Migraine without aura: Code(s): G43.009 - Migraine without aura, not intractable, without status migrainosus Category: Medical Qualifiers: Status migrainosus presence: without status migrainosus Intractability: not intractable Qualified Code(s): G43.009 - Migraine without aura, not intractable, without status migrainosus Plan: The patient is under neurological care for headaches, with ongoing assessment and management. (7) Cognitive dysfunction: Code(s): F09 - Unspecified mental disorder due to known physiological condition Category: Medical Plan: The patient has a history of traumatic brain injury due to multiple concussions, with ongoing monitoring of cognitive function. (8) Postconcussive syndrome: Code(s): F07.81 - Postconcussional syndrome Category: Medical Plan: The patient has a history of traumatic brain injury due to multiple concussions, with ongoing monitoring of cognitive function. (9) Positive colorectal cancer screening using Cologuard test: Comment: Collected November 07, 2024 Code(s): R19.5 - Other fecal abnormalities Category: Medical Plan: Patient is working with GI to get Colonscopy. (10) History of substance abuse: Code(s): F19.11 - Other psychoactive substance abuse, in remission Category: Medical Plan: On Methadone and doing OK (11) MDD (major depressive disorder), recurrent, in partial remission: Code(s): F33.41 - Major depressive disorder, recurrent, in partial remission Category: Medical Plan: Patient is seeing Psychiatrist once a month and a therapist every 2 weeks. Plan I discussed with the patient the importance of follow-up appointments with specialists for his various conditions, including cardiology, neurology, urology, and gastroenterology. We reviewed the positive Cologuard test and the plan for a colonoscopy, emphasizing the high false positive rate of the test. I also addressed the management of his psychiatric conditions with sertraline and clonazepam, and the need for ongoing monitoring of his cognitive function due to his history of traumatic brain injury. We agreed on a follow-up appointment in two months to reassess his conditions and review any updates from Social Security regarding his disability claim. Patient Instructions: - Continue taking all prescribed medications as directed. - Attend all scheduled follow-up appointments with specialists. - Monitor for any new or worsening symptoms and report them to your healthcare provider. - Follow up with the primary care provider in two months.
--- OUTSIDE RECORDS SUMMARY | 2025-02-09 12:57 | XMS_ITS | Patient Health Record ---
Author Organization Ivan Schultz MD Address [address] [address] REASON FOR REFERRAL No Information PLAN OF TREATMENT No Information
== END 2025-02-09 11:53 | disposition home or self-care (01) ==
LOC: HO.HMCHD 10:43
PROVIDERS: PCP Internal Medicine; Visit Provider Physician Assistant Medical
DX: R93.1 Abnormal findings on diagnostic imaging of heart and coronary circulation (principal); I95.9 Hypotension, unspecified; F19.11 Other psychoactive substance abuse, in remission; E29.1 Testicular hypofunction; Z87.898 Personal history of other specified conditions; D64.9 Anemia, unspecified; G43.009 Migraine without aura, not intractable, without status migrainosus; F09 Unspecified mental disorder due to known physiological condition; F07.81 Postconcussional syndrome; R19.5 Other fecal abnormalities; F33.41 Major depressive disorder, recurrent, in partial remission

== ENCOUNTER → 2025-02-09 10:42 | Outpatient (BNVA) | payer OTHER, SELFPAY | PROVIDERS: PCP Internal Medicine; Visit Provider Physician Assistant Medical | DX: F33.41 Major depressive disorder, recurrent, in partial remission (principal); I95.9 Hypotension, unspecified; D64.9 Anemia, unspecified; R93.1 Abnormal findings on diagnostic imaging of heart and coronary circulation; E29.1 Testicular hypofunction; G43.009 Migraine without aura, not intractable, without status migrainosus; F09 Unspecified mental disorder due to known physiological condition; F07.81 Postconcussional syndrome; R19.5 Other fecal abnormalities; F19.11 Other psychoactive substance abuse, in remission; F41.9 Anxiety disorder, unspecified; Z87.898 Personal history of other specified conditions; Z87.820 Personal history of traumatic brain injury | CPT/HCPCS: 99212 ==

== ENCOUNTER 2025-03-02 12:51 | Outpatient (AMB) | payer OTHER, SELFPAY ==
--- NOTE | 2025-03-02 13:08 | A.OFFVIS_ITS ---
Vital Signs 03/02/25 13:09 Height 5 ft 7 in Weight 130 lb 8.218 oz BMI 20.4 BP 100/62 Blood Pressure Location Lt brachial Position Sitting Pulse 75 Pulse Source Monitor Intake Visit Reasons: preop colonoscopy Wet Finisher Wool Required: No Pediatric Allergist: Pediatric Allergist Present Allergies No Known Allergies (No Known Allergies*) Allergy (Verified 03/02/25 13:11) Medication List - Last Reconciled 03/02/25 by AMANDA Marin baclofen 10 mg PO BEDTIME bisacodyl 5 mg PO BID clonazepam 0.5 mg PO BEDTIME clonazepam 1 mg PO BID docusate sodium 100 mg PO BEDTIME famotidine 20 mg PO DAILY PRN magnesium oxide 400 mg PO BEDTIME 90 days methadone 100 mg PO DAILY midodrine 2.5 mg PO TID 90 days omeprazole 40 mg PO DAILY peg 3350-electrolytes 236-22.74-6.74 -5.86 gram 240 mL PO Q10M polyethylene glycol 3350 (Miralax) 17 grams PO DAILY 30 days riboflavin (vitamin B2) 400 mg PO DAILY 90 days rosuvastatin (Crestor) 10 mg PO DAILY sertraline 50 mg PO DAILY simethicone (Gas Relief (simethicone)) 125 mg PO ONCE ubrogepant (Ubrelvy) 50 - 100 mg (0.5 - 1 x 100 mg) PO ONCE PRN 30 days HPI HPI preop colonoscopy: Details: Joseph is a 54-year-old male with past medical history of prior cocaine use, hyperlipidemia, right bundle branch block, low BP readings who put on Midodrine and now presents for follow-up and preop cardiovascular clearance. Today he reports he has been having less lightheadedness and sweating. He has not had any presyncope, syncope, falls recently. He will notice some brief dizziness with quick position changes. He continues to increase his fluid intake and drink some Gatorade each day. He has no chest discomfort at rest or with activity. No shortness of breath, orthopnea or edema. He has been having abdominal discomfort and tells me he had positive Cologuard test. He will be undergoing an upper and lower endoscopy in March. He has been getting forgetful and is undergoing neurology evaluation for possible Alzheimer's. Takes his meds as directed. is present. [facility] Medical History MDD (major depressive disorder), recurrent, in partial remission History of substance abuse Constipation Acid reflux Surgical History History of injury of penis History of throat surgery History of nasal surgery Family History Father No problems noted. Mother Diverticular disease of colon Social History Housing: House Alcohol intake: former Patient Tobacco Use Status: Current everyday Tobacco user e-Cigarette/Vaping Use: Currently Using service: No Current occupational status: retired Cognitive needs: No Hearing needs: No Vision needs: No Review of Systems Const Details: getting forgetful All systems reviewed & are unremarkable except as noted in HPI and below ENT Reports dizziness Card Denies chest pain, Denies chest pain at rest, Denies chest pain with activity, Denies rapid heart rate, Denies pedal edema, Denies edema, Denies leg edema, Denies palpitations, Denies dyspnea, Denies dyspnea on exertion and Denies orthopnea Resp Denies cough, Denies dyspnea and Denies dyspnea on exertion GI Details: abdominal pains at times - not today Denies hematochezia and Denies change in stool character Musc Denies abnormal gait, Reports limited range of motion, Reports muscle cramps, Denies muscle weakness, Denies numbness, Denies radiating pain into limb, Denies stiffness and Denies tingling Neuro Denies abnormal gait, Reports dizziness, Denies numbness and Denies tingling Endo Denies palpitations Physical Exam Vital Signs: Last Vital Signs Pulse 75 03/02/25 13:09 BP 90/72 03/02/25 13:09 BMI result Body Mass Index 20.4 Const General: cooperative, healthy appearing, comfortable and no acute distress Orientation/consciousness: patient oriented x3 Neck Neck: Yes normal visual inspection and Yes no JVD Resp Effort & Inspection: normal respiratory effort Auscultation: clear to auscultation bilaterally, no rales and no rhonchi Cardio Rate: regular rate Rhythm: regular rhythm Heart sounds: S1 normal heart sound present, S2 normal heart sound present, no gallops, no murmurs and no rubs Neuro General: patient oriented x3 Extrem General: Yes normal to inspection, No no pedal edema and No calf tenderness Psych Appearance: grossly normal Mental Status: mental status grossly normal Speech and movement: Normal speech and movement present Office Procedures EKG Details: Today, read by me, normal sinus rhythm, right bundle branch block, rate 75, QTC 477 millisecond [id number], Complete Assessment & Plan Assessment & Plan (1) Hypotension: Code(s): I95.9 - Hypotension, unspecified Category: Medical Qualifiers: Hypotension type: unspecified hypotension type Qualified Code(s): I95.9 - Hypotension, unspecified Plan: Symptomatic hypotension with blood pressure mostly in the 90s. He is on medications that can cause hypotension and orthostatic hypotension including baclofen and clonazepam. Echocardiogram done 09/16/2024 was normal study. Holter monitor 09/16/2024 showed sinus rhythm with average heart rate 74, rare PACs and PVCs, no pauses or significant arrhythmia. On last visit midodrine was added and he has been feeling better. He is not orthostatic on exam today, blood pressure sitting 100/62, standing 112/74. Continue midodrine at 2.5 mg t.i.d.. If his blood pressure is drift downward again his dose can be increased up to 5 mg t.i.d.. Reviewed increase in fluid intake to greater than 64 oz daily and add salt to his diet. Use caution when going sitting to standing. Cardiology follow-up 6 months, sooner if needed (2) Abnormal echocardiogram: Code(s): R93.1 - Abnormal findings on diagnostic imaging of heart and coronary circulation Category: Medical Plan: Cardiac evaluation for EKG showing right bundle branch block. He underwent an echocardiogram on 09/21/2023 which showed EF 56%, inferior lateral wall hypokinetic, no valve abnormalities. This led to a nuclear stress test on 12/12/2023 showing subdiaphragmatic tracer uptake adjacent to the inferior lateral wall but otherwise unremarkable. For further evaluation he had a diagnostic cardiac catheterization on 01/10/2024 showing normal coronaries with mid LAD bridging. He does have a history of cocaine use but denies any recent use of this substance. It is possible that he did have a coronary spasm in the past creating small infarct which can account for the Echo and stress abnormalities. Most recent echo is not showing any wall motion abnormality. Currently no anginal symptoms. Continue atorvastatin. (3) S/P cardiac cath: Comment: 01/10/2024, left main, left circumflex, RCA all normal, lad normal with mid LAD bridging noted. Code(s): Z98.890 - Other specified postprocedural states Category: Surgical (4) Right bundle branch block: Code(s): I45.10 - Unspecified right bundle-branch block Category: Medical Plan: Present on EKG. EKG from today also shows a left anterior fascicular block. Continue to follow. (5) Hyperlipidemia: Code(s): E78.5 - Hyperlipidemia, unspecified Category: Medical Qualifiers: Hyperlipidemia type: unspecified Qualified Code(s): E78.5 - Hyperlipidemia, unspecified Plan: [place] LDL goal less than 100. Labs done 09/24/2024 showed LDL 89. Continue atorvastatin (6) Preop cardiovascular exam: Code(s): Z01.810 - Encounter for preprocedural cardiovascular examination Category: Medical Plan: Preop for upper and lower endoscopy. He can proceed with low cardiac risk. Call/consult Cardiology if needed. Plan Time spent on chart review, documentation, interview and assessment Coding Level of Care Code Est Pt Level 4 (70136) Complex EM visit Add On G2211 Diagnoses Hypotension, unspecified hypotension type I95.9 Hypotension type: unspecified hypotension type Abnormal echocardiogram R93.1 S/P cardiac cath Z98.890 Right bundle branch block I45.10 Hyperlipidemia, unspecified hyperlipidemia type E78.5 Hyperlipidemia type: unspecified Preop cardiovascular exam Z01.810 CPT Codes EKG - CPT: [id number], Complete ([id number]) Time Spent (min) 28
[2025-03-02 13:09] VITALS: BP 100/62; PULSE 75; BMI 20.4
--- OUTSIDE RECORDS SUMMARY | 2025-03-02 13:59 | XMS_ITS | Patient Health Record ---
Author Organization Ivan Schultz MD Address [address] [address] REASON FOR REFERRAL No Information PLAN OF TREATMENT No Information
== END 2025-03-02 13:37 | disposition home or self-care (01) ==
LOC: HO.HCS 12:52
PROVIDERS: PCP Physician Assistant Medical; Visit Provider Nurse Practitioner Family
DX: I95.9 Hypotension, unspecified (principal); R93.1 Abnormal findings on diagnostic imaging of heart and coronary circulation; Z98.890 Other specified postprocedural states; I45.10 Unspecified right bundle-branch block; E78.5 Hyperlipidemia, unspecified; Z01.810 Encounter for preprocedural cardiovascular examination
CPT/HCPCS: 93010; 99214

== ENCOUNTER → 2025-03-02 12:51 | Outpatient (BNVA) | payer OTHER, SELFPAY | PROVIDERS: PCP Physician Assistant Medical; Visit Provider Nurse Practitioner Family | DX: Z01.810 Encounter for preprocedural cardiovascular examination (principal); I95.9 Hypotension, unspecified; R93.1 Abnormal findings on diagnostic imaging of heart and coronary circulation; I45.10 Unspecified right bundle-branch block; E78.5 Hyperlipidemia, unspecified | CPT/HCPCS: 93005; 99212 ==

== ENCOUNTER 2025-03-07 12:24 | Emergency (ER) | payer OTHER, SELFPAY ==
--- NOTE | ~2025-03-07 | CT_ITS ---
CLINICAL HISTORY: fall, trauma CT head without contrast Comparison: 01/10/2025 Findings: No new intra-axial mass, midline shift, hydrocephalus, or acute hemorrhage. No significant atrophy-like change or white matter disease. There is no sinus or mastoid fluid. The orbits are unremarkable. There is no acute fracture. IMPRESSION: 1. No acute intracranial findings. This document has been electronically signed by: Emir Goldstein MD on 03/07/2025 13:49:27
--- NOTE | ~2025-03-07 | XR_ITS ---
CLINICAL HISTORY: weakness, syncope 2 view chest x-ray Comparison: 05/20/2022 Findings: The lungs are clear. Normal size heart. No acute fracture. IMPRESSION: 1. No acute findings. This document has been electronically signed by: Emir Goldstein MD on 03/07/2025 13:59:20
--- NOTE | 2025-03-07 12:34 | ED.GENADULT ---
[facility] - General Adult General Chief complaint: Syncope Stated complaint: passed out, fall lump on head Time Seen by Provider: 03/07/25 14:17 History of Present Illness ED Provider: Dr. Vargas HPI narrative: 54-year-old male history of polysubstance use, right bundle branch block, cognitive disorder presented hospital today for evaluation of syncopal episode. Patient was walking around the home when he had sudden syncopal episode. He has struck his head. Patient has had a cardiac workup back in 2023. His echocardiogram did shows inferolateral hypokinesia. The patient's cardiac catheterization was negative. Patient is currently on midodrine for a chronic hypotension. Related Data Home Medications ?Medication ?Instructions ?Recorded ?Confirmed clonazepam 1 mg tablet 1 mg PO BID 08/30/22 03/02/25 omeprazole 40 mg capsule,delayed 40 mg PO DAILY 07/30/24 03/02/25 release rosuvastatin 10 mg tablet (Crestor) 10 mg PO DAILY 07/30/24 03/02/25 clonazepam 0.5 mg tablet 0.5 mg PO BEDTIME 02/06/25 03/02/25 methadone 10 mg tablet 100 mg PO DAILY 02/06/25 03/02/25 Previous Rx's ?Medication ?Instructions ?Recorded magnesium oxide 400 mg PO BEDTIME 90 days #90 tabs 07/30/24 riboflavin (vitamin B2) 400 mg 400 mg PO DAILY 90 days #90 tabs 07/30/24 tablet sertraline 50 mg tablet 50 mg PO DAILY #90 tabs 12/25/24 baclofen 10 mg tablet 10 mg PO BEDTIME #90 tabs 01/28/25 ubrogepant 100 mg tablet (Ubrelvy) 50 - 100 mg (0.5 - 1 x 100 mg) PO 01/29/25 ONCE PRN migraine headache 30 days #16 tabs bisacodyl 5 mg tablet,delayed 5 mg PO BID #4 tabs 02/06/25 release docusate sodium 100 mg capsule 100 mg PO BEDTIME constipation #90 02/06/25 caps famotidine 20 mg tablet 20 mg PO DAILY PRN GERD #90 tabs 02/06/25 peg 3350-electrolytes 236 240 ml PO Q10M #4,000 mL 02/06/25 gram-22.74 gram-6.74 gram-5.86 gram solution polyethylene glycol 3350 17 17 g PO DAILY constipation 30 days 02/06/25 gram/dose oral powder (Miralax) #510 grams simethicone 125 mg capsule (Gas 125 mg PO ONCE abdominal 02/06/25 Relief (simethicone)) distention #4 caps midodrine 2.5 mg tablet 2.5 mg PO TID 90 days #270 tabs 02/25/25 Allergies Allergy/AdvReac Type Severity Reaction Status Date / Time No Known Allergies (No Known Allergy Verified 03/07/25 12:38 Allergies*) Review of Systems Review of Systems: Pertinent review of systems as mentioned in HPI. All other system otherwise negative. [facility] Past Medical History [facility] Narrative: Medical history as mentioned in HPI Medical History MDD (major depressive disorder), recurrent, in partial remission History of substance abuse Constipation Acid reflux Surgical History History of injury of penis History of throat surgery History of nasal surgery Family History Family History Father No problems noted. Mother Diverticular disease of colon Social History Social History Housing: House Alcohol intake: former Patient Tobacco Use Status: Current everyday Tobacco user Smoked in Last 30 Days: No e-Cigarette/Vaping Use: Currently Using Advance Directives: No Advance Directives Information Provided: No Do you have a plan to hurt others: No Plan service: No Current occupational status: retired Cognitive needs: No Hearing needs: No Vision needs: No Physical Exam ED Exam Exam: General: Cachectic-appearing Head: Normacephalic, atraumatic ENT: oral mucosa moist, neck supple, no tracheal deviation Cardiovascular: Bradycardic rate, regular rhythm, no murmurs, rubbing, gallops Respiratory: CTAB, no wheeze, rales, rhonchi Gastrointestinal: Soft, non distended, non tender, non guarding Extremities: No limb pain or swelling, no calf tenderness Neurological: Awake and alert, no facial droop noted Skin: Warm and dry Psychiatric: Appropriate mood and thoughts Vital Signs: Vital Signs - 24 hr 03/07/25 12:35 03/07/25 15:17 03/07/25 15:17 Temperature 97.5 F Pulse Rate 46 L 38 L Respiratory Rate 18 14 Blood Pressure 112/57 L 116/70 Pulse Oximetry 98 98 98 Oxygen Delivery Method Room Air Room Air Room Air 03/07/25 18:15 Temperature 0 F L Pulse Rate 38 L Respiratory Rate 14 Blood Pressure 116/70 Pulse Oximetry 98 Oxygen Delivery Method Room Air BMI result Body Mass Index 21.3 Course Course Course Narrative: Medical screening exam performed. Please refer to detailed history, exam, evaluation, and management by primary provider. Episode of syncope this morning. Patient states he recalls getting up and then ended up on the floor. Currently on midodrine. No chest pain. Pale, no diaphoresis. JS Medications Administered Discontinued Medications Generic Name Dose Route Start Last Admin Trade Name Freq PRN Reason Stop Dose Admin Lactated Ringer's 1,000 mls @ 999 mls/hr 03/07/25 15:15 03/07/25 16:50 Lr IV 03/07/25 16:15 Infused .Q1H1M JAMIR Infusion Medical Decision Making Medical Decision Making [facility] Narrative: 54-year-old male presented hospital today for sudden syncopal episode. EKG does shows right bundle branch block. No sign of STEMI. Troponin is negative here. Lab work unremarkable. Patient remains bradycardic while in the ER. I did reach out to cardiology discussed the case. They recommend admission for observation for syncope. Patient's CT head was negative. No sign of intracranial bleed from the fall. Patient was able to ambulate with a tech without any issues. Discussed with the patient about admission however patient we will like to go home. He understands the risk of going home. He does not want to stay in the hospital at this time. Discussed with him about calling Cardiology office for follow up. Patient and agrees and understands this plan. Differential Diagnosis Differential Diagnoses: The differential diagnosis associated with the presentation includes Bradycardia, heart block, syncope, vasovagal syncope, dehydration Consult Healthcare Provider Management of the patient was discussed with: Gate Clerk (Dr. Blake (clam digger)) Lab Data [facility] Lab Attestation statement: I reviewed the patient's lab results. 03/07/25 13:10 03/07/25 13:10 Labs: Lab Results 03/07/25 03/07/25 03/07/25 Range/Units 13:10 15:59 16:23 WBC 7.5 (4.8-10.8) X10*3/uL RBC 4.06 L (4.60-5.80) X10*6/uL Hgb 12.2 L (14.0-18.0) g/dl Hct 36.4 L (42.0-52.0) % MCV 89.7 (80.0-98.0) fL MCH 30.0 (27.0-33.0) pg MCHC 33.5 (31.0-36.0) g/dl RDW 14.2 (11.0-16.0) % Plt Count 227 (160-400) X10*3/uL MPV 10.4 (9.4-12.4) fL Immature Gran % (Auto) 0.4 (0.0-0.4) % Neut % (Auto) 69.2 (45-73) % Lymph % (Auto) 19.5 L (20-40) % [place] % (Auto) 8.4 (2-11) % Eos % (Auto) 2.1 (0-4) % Baso % (Auto) 0.4 (0-2) % Lymph # (Auto) 1.5 (1.2-4.9) X10*3/uL [place] # (Auto) 0.6 (0.1-1.2) X10*3/uL Eos # (Auto) 0.2 (0.0-0.4) X10*3/uL Baso # (Auto) 0.0 (0.0-0.2) X10*3/uL Abs Immat Gran (auto) 0.03 (0.00-0.03) X10*3/uL Absolute Neuts (auto) 5.2 (2.0-8.3) x10*3/uL Absolute Nucleated RBC 0.000 (0.0-0.012) X10*3/uL Nucleated RBC % (auto) 0.0 (0.0-0.2) /100WBC Sodium 142 (135-145) mmol/L Potassium 3.9 (3.3-5.1) mmol/L Chloride 105 (96-108) mmol/L Carbon Dioxide 30 H (22-29) mmol/L Anion Gap 11 L (12-20) BUN 13 (9-16) mg/dL Creatinine 0.79 (0.5-1.4) mg/dL Estim Creat Clear Calc 94.3 Estimated GFR > 60 Random Glucose 99 (60-115) mg/dL Lactic Acid 2.2 H* (0.5-2.0) mmol/L Calcium 8.9 (8.4-10.2) mg/dL Magnesium 2.1 (1.6-2.6) mg/dL Total Bilirubin 0.2 (0.0-1.0) mg/dL AST 33 (5-37) U/L ALT 27 (0-40) U/L Alkaline Phosphatase 110 (39-117) U/L Troponin I High Sens < 2.7 (<3.5-35.0) ng/L Total Protein 6.6 (6.5-8.0) g/dL Albumin 4.0 (3.5-5.0) g/dL Lipase 11 (8-78) U/L TSH 1.04 (0.32-4.0) uIU/mL Urine Color Dark Yellow Urine Appearance Clear Urine pH 6.5 (5.0-9.0) Ur Specific [place] 1.015 (1.005-1.025) Urine Protein Negative (Neg-Trace) mg/dL Urine Glucose (UA) Negative (Negative) mg/dL Urine Ketones Negative (Negative) mg/dL Urine Blood Negative (Negative) Urine Nitrite Negative (Negative) Ur Leukocyte Esterase Negative (Negative) Urine Opiates Screen Not Detected (Not Detect) Ur Buprenorphine Scrn Not Detected (Not Detect) ng/mL Ur Oxycodone Screen Not Detected (Not Detect) ng/mL Urine Methadone Screen Positive H (Not Detect) ng/mL Urine Fentanyl Screen Not Detected (Not Detect) Ur Barbiturates Screen Not Detected (Not Detect) Ur Phencyclidine Scrn Not Detected (Not Detect) Ur Amphetamines Screen Not Detected (Not Detect) U Benzodiazepines Scrn POSITIVE H (Not Detect) Urine Cocaine Screen POSITIVE H (Not Detect) U Marijuana (THC) Screen POSITIVE H (Not Detect) Ethyl Alcohol < 10 mg/dL Independent Interpretation I performed an independent interpretation of an: Plain X-Ray Radiology Impression Discussion of test interpretation with radiology: I have reviewed the radiologist's reading. Discharge Plan Discharge Clinical Impression: Dehydration, Bradycardia Syncope Qualifiers: Syncope type: unspecified Qualified Code(s): R55 - Syncope and collapse Patient Disposition: Home, Self-Care Instructions: Bradycardia (ED) Additional Instructions: PLease call to follow up with your clam digger. You have signs of bradycardia. EKG did not show any heart block. IF you have further syncopal episode return to the ED Prescriptions: No Action baclofen 10 mg tablet 10 mg PO BEDTIME Qty: 90 1RF midodrine 2.5 mg tablet 2.5 mg PO TID 90 Days Qty: 270 3RF clonazepam 1 mg tablet 1 mg PO BID omeprazole 40 mg capsule,delayed release(DR/EC) 40 mg PO DAILY rosuvastatin [Crestor] 10 mg tablet 10 mg PO DAILY magnesium oxide 400 mg magnesium tablet 400 mg PO BEDTIME 90 Days Qty: 90 3RF riboflavin (vitamin B2) 400 mg tablet 400 mg PO DAILY 90 Days Qty: 90 3RF Ubrelvy 100 mg tablet 50 - 100 mg PO ONCE PRN (Reason: migraine headache) 30 Days Qty: 16 6RF Rx Instructions: take at onset of migraine, may repeat in 2hrs (may take w/ Aleve) clonazepam 0.5 mg tablet 0.5 mg PO BEDTIME sertraline 50 mg tablet 50 mg PO DAILY Qty: 90 3RF methadone 10 mg tablet 100 mg PO DAILY docusate sodium 100 mg capsule 100 mg PO BEDTIME Qty: 90 1RF Rx Instructions: Take one tablet at bedtime polyethylene glycol 3350 [Miralax] 17 gram/dose powder 17 g PO DAILY 30 Days Qty: 510 2RF Rx Instructions: Take 17G (one cap full) daily with 8oz of water famotidine 20 mg tablet 20 mg PO DAILY PRN (Reason: GERD) Qty: 90 0RF Rx Instructions: Take one tablet as needed for acid reflux simethicone [Gas Relief (simethicone)] 125 mg capsule 125 mg PO ONCE Qty: 4 0RF Rx Instructions: per colonoscopy prep instructions bisacodyl 5 mg tablet,delayed release (DR/EC) 5 mg PO BID Qty: 4 0RF Rx Instructions: Take per colonoscopy instructions peg 3350-electrolytes 236-22.74-6.74 -5.86 gram recon soln 240 ml PO Q10M Qty: 4000 0RF Rx Instructions: until fecal effluent is clear Interventions: ED Discharge Assessment Last Done: 03/07/25 18:15 Discharge Date/Time: 03/07/25 18:16 Print Language: Nigerian
[2025-03-07 12:35] VITALS: BP 112/57; PULSE 46; RESP 18; TEMP 36.4; O2SAT 98; BMI 21.3
--- NOTE | 2025-03-07 12:35 | ECG_ITS ---
Test Reason : SYNCOPE Blood Pressure : */* mmHG Vent. Rate : 46 BPM Atrial Rate : 46 BPM P-R Int : 112 ms QRS Dur : 114 ms QT Int : 530 ms P-R-T Axes : * -21 15 degrees QTcB Int : 463 ms Sinus bradycardia Incomplete right bundle branch block Borderline ECG No previous ECGs available Referred By: Edwin Rogel Electronically Signed By: MARYAN ALVAREZ
[2025-03-07 13:15] LABS: MANUAL DIFF FLAG NO
[2025-03-07 13:23] LABS: Hematocrit 36.4 % (42.0-52.0); Hemoglobin 12.2 g/dl (14.0-18.0); Imm Gran Abs Auto 0.03 X10*3/uL (0.00-0.03); Imm Gran Pct Auto 0.4 % (0.0-0.4); Lymphocytes Absolute Auto 1.5 X10*3/uL (1.2-4.9); Mean Corpuscular HGB Conc 33.5 g/dl (31.0-36.0); Mean Corpuscular Hemoglobin 30.0 pg (27.0-33.0); Mean Corpuscular Volume 89.7 fL (80.0-98.0); NRBC Abs Auto 0.000 X10*3/uL (0.0-0.012); NRBC Pct Auto 0.0 /100WBC (0.0-0.2); Platelet Count 227 X10*3/uL (160-400); Red Blood Count 4.06 X10*6/uL (4.60-5.80); White Blood Count 7.5 X10*3/uL (4.8-10.8)
--- OUTSIDE RECORDS SUMMARY | 2025-03-07 13:30 | XMS_ITS | Patient Health Record ---
Author Organization Ivan Schultz MD Address [address] [address] REASON FOR REFERRAL No Information PLAN OF TREATMENT No Information
[2025-03-07 13:47] LABS: Troponin-I High Sensitivity < 2.7 ng/L (<3.5-35.0)
[2025-03-07 13:50] LABS: Alanine Aminotransferase 27 U/L (0-40); Albumin Level 4.0 g/dL (3.5-5.0); Alkaline Phosphatase 110 U/L (39-117); Anion Gap 11 (12-20); Aspartate Amino Transferase 33 U/L (5-37); Blood Urea Nitrogen 13 mg/dL (9-16); Calcium 8.9 mg/dL (8.4-10.2); Carbon Dioxide 30 mmol/L (22-29); Chloride 105 mmol/L (96-108); Creatinine Clr Calc Pharmacy 94.3; Estimated Glomerular Filt Rate > 60; Lipase 11 U/L (8-78); Potassium 3.9 mmol/L (3.3-5.1); Sodium 142 mmol/L (135-145); Total Protein 6.6 g/dL (6.5-8.0)
--- NOTE | 2025-03-07 15:05 | ECG_ITS ---
Test Reason : REPEAT Blood Pressure : */* mmHG Vent. Rate : 49 BPM Atrial Rate : 49 BPM P-R Int : 126 ms QRS Dur : 108 ms QT Int : 534 ms P-R-T Axes : 44 -16 15 degrees QTcB Int : 482 ms Sinus bradycardia Right bundle branch block Abnormal ECG When compared with ECG of 07-Mar-2025 13:03, No significant change was found Referred By: Jewell Vargas Electronically Signed By: MARYAN ALVAREZ
[2025-03-07 15:17] VITALS: BP 116/70; PULSE 38; RESP 14; O2SAT 98
[2025-03-07] MEDS: Lactated Ringers 1,000 ML 999 ML IV (15:17)
[2025-03-07 15:22] LABS: Magnesium 2.1 mg/dL (1.6-2.6)
[2025-03-07 15:36] LABS: Thyroid Stimulating Hormone 1.04 uIU/mL (0.32-4.0)
[2025-03-07 16:32] LABS: Appearance Urine Clear; Glucose Urine UA Negative (Negative); PH 6.5 (5.0-9.0); Specific Gravity - Urine 1.015 (1.005-1.025)
[2025-03-07 16:40] LABS: Cannabinoid Screen Urine POSITIVE (Not Detect)
--- NOTE | 2025-03-07 17:53 | MHC.EDTECH ---
Ambulation trial performed with this Pt. Two techs on standby to assist Pt if needed. Pt had a steady gait, and has no complaints.
[2025-03-07 18:02] LABS: Reflex Lactate? Lactic Acid Added
[2025-03-07 18:15] VITALS: BP 116/70; PULSE 38; RESP 14; TEMP -17.7; TEMP 0; O2SAT 98
== END 2025-03-07 18:16 | disposition home or self-care (01) ==
PROVIDERS: Physician Assistant; Emergency Provider Student in an Organized Health Care Education/Training Program; PCP Physician Assistant Medical
DX: E86.0 Dehydration (principal); R00.1 Bradycardia, unspecified; R64 Cachexia; F09 Unspecified mental disorder due to known physiological condition; I45.10 Unspecified right bundle-branch block; Z79.899 Other long term (current) drug therapy
CPT/HCPCS: 36415; 70450; 71046; 80053; 80307; 81003; 83605; 83690; 83735; 84443; 84484; 85025; 93005; 96360; 96361; 99285; J7120

== ENCOUNTER → 2025-03-07 12:35 | Outpatient (BNV) | payer OTHER, SELFPAY | PROVIDERS: PCP Physician Assistant Medical; Visit Provider Specialist | DX: R53.1 Weakness (principal); R55 Syncope and collapse; W19.XXXA Unspecified fall, initial encounter | CPT/HCPCS: 70450; 71046 ==

== ENCOUNTER → 2025-03-07 12:35 | Outpatient (BNV) | payer OTHER, SELFPAY | PROVIDERS: Emergency Provider Student in an Organized Health Care Education/Training Program; PCP Physician Assistant Medical; Visit Provider Internal Medicine | DX: I45.10 Unspecified right bundle-branch block (principal); R00.1 Bradycardia, unspecified | CPT/HCPCS: 93010 ==

== ENCOUNTER 2025-03-11 09:50 | Outpatient (AMB) | payer OTHER, SELFPAY ==
[2025-03-11 08:26] VITALS: BP 116/72; PULSE 67; TEMP 36.4; O2SAT 98; BMI 21.3
--- NOTE | 2025-03-11 08:26 | MHC.PC.OV ---
Vital Signs 03/11/25 08:26 Height 5 ft 7 in Weight 136 lb BMI 21.3 BP 116/72 Blood Pressure Location Lt brachial Position Sitting Pulse 67 Pulse Source Pulse Oximeter Temp 97.6 F Temp Source Temporal Artery Scan Pulse Oximetry (%) 98 Oxygen Delivery Method Room Air Intake Visit Reasons: ED follow up Cocoa Press Operator Required: No Accompanied by: Spouse Allergies No Known Allergies (No Known Allergies*) Allergy (Verified 03/11/25 08:26) Medication List - Last Reconciled 03/11/25 by MOHINDER Harrison baclofen 10 mg PO BEDTIME bisacodyl 5 mg PO BID clonazepam 0.5 mg PO BEDTIME clonazepam 1 mg PO BID docusate sodium 100 mg PO BEDTIME famotidine 20 mg PO DAILY PRN magnesium oxide 400 mg PO BEDTIME 90 days methadone 100 mg PO DAILY midodrine 2.5 mg PO TID 90 days omeprazole 40 mg PO DAILY peg 3350-electrolytes 236-22.74-6.74 -5.86 gram 240 mL PO Q10M polyethylene glycol 3350 (Miralax) 17 grams PO DAILY 30 days riboflavin (vitamin B2) 400 mg PO DAILY 90 days rosuvastatin (Crestor) 10 mg PO DAILY sertraline 50 mg PO DAILY simethicone (Gas Relief (simethicone)) 125 mg PO ONCE ubrogepant (Ubrelvy) 50 - 100 mg (0.5 - 1 x 100 mg) PO ONCE PRN 30 days Tobacco use date assessed: 03/11/25 Dental Screening Dental Screen Date: 03/11/25 Did you have a dental visit in the last 12 months?: Yes Did you have a dental problem in the last 6 months where you did not have access to dental care?: No HPI HPI Comments History of Present Illness Details The patient is a 54-year-old male presenting with a recent episode of syncope. The incident occurred while the patient was getting ready to leave for an outing, and he does not recall feeling lightheaded or dizzy prior to the event. He was found by his partner, who noted he was shaking and had a lump on his head from the fall. He was seen in the ER on 03/07. In the emergency room, a CT scan and blood work were performed, both of which returned normal results. However, the patient was noted to have bradycardia with a heart rate between 38 and 45 bpm, and low blood pressure. Currently, his heart rate has improved to 67 bpm. The patient reports occasional lightheadedness and has been advised to rise slowly and hold onto something when standing to prevent orthostatic hypotension. He has been instructed to increase fluid intake to address dehydration, which was noted by dark urine. The patient has a follow-up appointment with cardiology scheduled for April and a colonoscopy planned for March 31. He has been advised to continue monitoring his heart rate and to contact his physician if it drops below 50 bpm. [facility] Medical History MDD (major depressive disorder), recurrent, in partial remission History of substance abuse Constipation Acid reflux Surgical History History of injury of penis History of throat surgery History of nasal surgery Family History Father No problems noted. Mother Diverticular disease of colon Social History Housing: House Alcohol intake: former Patient Tobacco Use Status: Current everyday Tobacco user e-Cigarette/Vaping Use: Currently Using service: No Current occupational status: retired Cognitive needs: No Hearing needs: No Vision needs: No Questionnaire PHQ-9 Over the last 2 weeks, how often have you been bothered by any of the following problems? 1. Little interest or pleasure in doing things: not at all 2. Feeling down, depressed, or hopeless: nearly every day 3. Trouble falling or staying asleep, or sleeping too much: nearly every day (TROUBLE STAYING ASLEEP) 4. Feeling tired or having little energy: nearly every day 5. Poor appetite or overeating: nearly every day (Poor appetite) 6. Feeling bad about yourself - or that you are a failure or have let yourself or your family down: not at all 7. Trouble concentrating on things, such as reading the newspaper or watching television: not at all 8. Moving or speaking so slowly that other people could have noticed. Or the opposite - being so fidgety or restless that you have been moving around a lot more than usual: not at all 9. Thoughts that you would be better off or of hurting yourself in some way: not at all Total score: 12 Source: Developed by Drs. Doug Schneider, Luli Chakraborty, George Cheatham and colleagues, with an educational theo from [employer]. Thrive Questionnaire Date Thrive assessed: 03/11/25 I am a: Patient Within the past 12 months, did the food you bought not last and you didn't have the money to get more?: Never true Within the past 12 months, did you worry whether your food would run out before you got money to buy more?: Never true Do you have trouble paying for medicines?: No Do you have trouble getting transportation to medical appointments?: No Do you have trouble paying your heating and electricity bill?: No Do you have trouble taking care of your child, family member or friend?: No Do you have trouble with day-to-day activities such as bathing, preparing meals, shopping, managing finances, etc.?: No Are you currently unemployed and looking for a job?: No Are you interested in more education?: No THRIVE Score: 0 AUDIT C Alcohol Use Questionnaire (AUDIT-C) 1. How often do you have a drink containing alcohol?: Never 3. How often do you have six or more drinks on one occasion?: Never Total Score: 0 SARAHY-7 AMB Questionnaire SARAHY-7 Date SARAHY - 7 assessed: 03/11/25 Feeling nervous, anxious, or on edge: 3 = Nearly every day Not being able to stop or control worryin = Not at all Worrying too much about different things: 0 = Not at all Trouble relaxin = Not at all Being so restless that it is hard to sit still: 0 = Not at all Becoming easily annoyed or irritable: 0 = Not at all Feeling afraid as if something awful might happen: 0 = Not at all Total SARAHY-7 score (0-4 normal; 5-9 mild; 10-14 moderate; 15-21 severe): 3 Source: Developed by Drs. Doug Schneider, George Chavarria and colleagues, with an educational theo from [employer]. Review of Systems Const Details: CONSTITUTIONAL Negative HEAD/NECK No headache RESPIRATORY Negative CARDIOVASCULAR Reports occasional palpitations and pressure. Denies chest pain or syncope. NEUROLOGICAL Reports occasional lightheadedness. Denies dizziness or balance issues PSYCHIATRIC Negative Physical exam (Primary Care) Vital Signs: Last Vital Signs Temp 97.6 F 03/11/25 08:26 Pulse 67 03/11/25 08:26 BP 116/72 03/11/25 08:26 Pulse Ox 98 03/11/25 08:26 Oxygen Delivery Method Room Air 03/11/25 08:26 BMI result Body Mass Index 21.3 GENERAL Well developed, Well nourished, in no apparent distress HEENT Head-Normocephalic Eyes- PERRLA, EOMI, Conjuctiva clear, lids WNL Ears- Canals clear, TMs WNL Mouth/Throat-No lesions, no erythema, no exudate Neck- Supple, No lymphadenopathy, thyroid WNL RESPIRATORY Normal I:E, Clear to auscultation CARDIOVASCULAR Regular, rate and rhythm, No murmurs or rubs NEUROLOGICAL cranial nerves grossly intact Muscle strength 4/5 DTR 2+ Gait normal PSYCHIATRIC Oriented to person, place and time Mood and affect WNL Appearance WNL Speech WNL Thought processes WNL Tobacco/Smoking Status: Tobacco use Status Tobacco use date assessed 03/11/25 03/11/25 08:27 Patient Tobacco Use Status Current everyday Tobacco 03/11/25 08:27 e-Cigarette/Vaping Use Currently Using 03/11/25 08:27 PHQ-9: PHQ-9 Score PHQ-9: Total score 12 03/11/25 10:15 Thrive Assessment: Date of Thrive Assessment Date Thrive assessed 03/11/25 03/11/25 08:27 Coding Level of Care Code Established Pt Est Pt Level 3 (69867) Patient Type Established Diagnoses Syncope R55 Bradycardia R00.1 Time Spent (min) 25 Comment Time spent on chart review, H&P, patient education and follow up Assessment & Plan Assessment & Plan (1) Syncope: Code(s): R55 - Syncope and collapse Plan: Patient was seen in the ER. He has been feeling OK since. The patient was instructed to rise slowly and hold onto something when standing to prevent falls. He was also advised to ensure adequate hydration to mitigate symptoms. He has a follow up with Cardiology 04/10 and Neurology 07/30. Patient to keep follow up on 04/08 (2) Bradycardia: Code(s): R00.1 - Bradycardia, unspecified Plan: The patient was advised to monitor his heart rate regularly and to contact his physician if it drops below 50 bpm. A follow-up appointment with cardiology is scheduled for April to further evaluate and manage the condition. Plan I discussed with the patient the importance of monitoring his heart rate and maintaining adequate hydration to prevent dehydration and orthostatic hypotension. We reviewed the upcoming colonoscopy and cardiology appointments, emphasizing the need for these evaluations to ensure comprehensive care. Patient Instructions: - Monitor heart rate regularly and contact your physician if it drops below 50 bpm. - Increase fluid intake to prevent dehydration, aiming for very light-colored urine. - Limit Gatorade intake to two bottles, supplementing with water. - Rise slowly and hold onto something when standing to prevent falls. - Attend scheduled colonoscopy on March 31 and cardiology follow-up in April.
== END 2025-03-11 10:36 | disposition home or self-care (01) ==
LOC: HO.HMCHD 09:50
PROVIDERS: PCP Physician Assistant Medical; Visit Provider Physician Assistant Medical
DX: R55 Syncope and collapse (principal); R00.1 Bradycardia, unspecified

== ENCOUNTER → 2025-03-11 09:50 | Outpatient (BNVA) | payer OTHER, SELFPAY | PROVIDERS: PCP Physician Assistant Medical; Visit Provider Physician Assistant Medical | DX: Z09 Encounter for follow-up examination after completed treatment for conditions other than malignant neoplasm (principal); R55 Syncope and collapse; R00.1 Bradycardia, unspecified; Z79.899 Other long term (current) drug therapy | CPT/HCPCS: 99212 ==

== ENCOUNTER 2025-04-22 10:47 | Outpatient (AMB) | payer OTHER, SELFPAY ==
--- NOTE | 2025-04-22 11:23 | A.OFFPC_ITS ---
Vital Signs 04/22/25 11:24 Height 5 ft 7 in Weight 137 lb BMI 21.5 BP 126/72 Blood Pressure Location Lt brachial Position Sitting Pulse 58 Pulse Source Pulse Oximeter Temp 97.7 F Temp Source Temporal Artery Scan Pulse Oximetry (%) 97 Oxygen Delivery Method Room Air Intake Visit Reasons: routine - see comments Finance Effectiveness Manager Required: No Accompanied by: Self / Same As Patient Allergies No Known Allergies (No Known Allergies*) Allergy (Verified 04/22/25 11:25) Medication List - Last Reconciled 05/09/25 by MOHINDER Harrison baclofen 10 mg PO BEDTIME clonazepam 0.5 mg PO BEDTIME clonazepam 1 mg PO BID docusate sodium 100 mg PO BEDTIME magnesium oxide 400 mg PO BEDTIME 90 days meclizine 25 mg PO TID PRN methadone 100 mg PO DAILY midodrine 2.5 mg PO TID 90 days omeprazole 40 mg PO DAILY 90 days riboflavin (vitamin B2) 400 mg PO DAILY 90 days rosuvastatin (Crestor) 10 mg PO DAILY sertraline 50 mg PO DAILY ubrogepant (Ubrelvy) 50 - 100 mg (0.5 - 1 x 100 mg) PO ONCE PRN 30 days Tobacco use date assessed: 04/22/25 Dental Screening Dental Screen Date: 04/22/25 Did you have a dental visit in the last 12 months?: Yes Did you have a dental problem in the last 6 months where you did not have access to dental care?: No HPI HPI Comments History of Present Illness Details History of Present Illness The patient is a 54-year-old male with MDD/anxiety, History of substance abuse, cognitive dysfunction, migraine, constipation and GERD presenting for follow-up for cardiac symptoms and dizziness. He was seen by cardiology a couple of months ago and continues to experience palpitations, chest pain, and shortness of breath. The patient reports persistent dizziness. He describes the sensation as the room spinning if he gets up too quickly, which is consistent with vertigo, and at other times feels lightheaded. This is most prominent in the morning, pa rticularly when he wakes up between 2:30 and 3:00 a.m., causing him to be unsteady and bump into doorframes. He has a history of vertigo and underwent physical therapy, but was unable to tolerate the testing maneuvers due to emesis. The patient recently attempted a colonoscopy, but the preparation was unsuccessful. He developed a yellowish, mucoid discharge, and the hospital advised him to reschedule the procedure. He has upcoming specialist appointments with cardiology in May, neurology in July, and urology on 05/20. His last lab work was in March. Medical History: - Vertigo, previously treated with physi lucien therapy - Bradycardia Medications: - The patient is taking magnesium, thoug h it is not for dizziness. Health Maintenance The patient's recent colonoscopy preparation failed, and he needs to reschedule the procedure. He was advised to call the urologist's office to confirm his follow-up appointment, as it was not appearing in the system. Results - Labs: Last blood count was in March 2023. Patient was informed and verbally consented to the use of an ambient scribe for clinic note documentation during this visit. [facility] Medical History (Updated 05/09/25 @ 14:17 by MOHINDER Harrison) Acid reflux Constipation History of substance abuse MDD (major depressive disorder), recurrent, in partial remission Palpitations Surgical History History of injury of penis History of nasal surgery History of throat surgery Family History Father No problems noted. Mother Diverticular disease of colon Social History Housing: House Alcohol intake: former Patient Tobacco Use Status: Current everyday Tobacco user e-Cigarette/Vaping Use: Currently Using service: No Current occupational status: retired Cognitive needs: No Hearing needs: No Vision needs: No Questionnaire PHQ-9 Over the last 2 weeks, how often have you been bothered by any of the following problems? 1. Little interest or pleasure in doing things: not at all 2. Feeling down, depressed, or hopeless: nearly every day 3. Trouble falling or staying asleep, or sleeping too much: nearly every day (trouble staying asleep) 4. Feeling tired or having little energy: nearly every day 5. Poor appetite or overeating: not at all 6. Feeling bad about yourself - or that you are a failure or have let yourself or your family down: not at all 7. Trouble concentrating on things, such as reading the newspaper or watching television: not at all 8. Moving or speaking so slowly that other people could have noticed. Or the opposite - being so fidgety or restless that you have been moving around a lot more than usual: not at all 9. Thoughts that you would be better off or of hurting yourself in some way: not at all Total score: 9 Depression Screening Interpretation: Positive (Patient to follow up with his Psychiatrist) Depression Screening Follow-up: In treatment Depression Screening Done: Yes Source: Developed by Drs. Doug Schneider, Luli Chakraborty, George Cheatham and colleagues, with an educational theo from [email or web address]. Thrive Questionnaire Date Thrive assessed: 04/22/25 I am a: Patient Within the past 12 months, did the food you bought not last and you didn't have the money to get more?: Never true Within the past 12 months, did you worry whether your food would run out before you got money to buy more?: Never true Do you have trouble paying for medicines?: No Do you have trouble getting transportation to medical appointments?: No Do you have trouble paying your heating and electricity bill?: No Do you have trouble taking care of your child, family member or friend?: No Do you have trouble with day-to-day activities such as bathing, preparing meals, shopping, managing finances, etc.?: No Are you currently unemployed and looking for a job?: No Are you interested in more education?: No THRIVE Score: 0 AUDIT C Alcohol Use Questionnaire (AUDIT-C) 1. How often do you have a drink containing alcohol?: Never 3. How often do you have six or more drinks on one occasion?: Never Total Score: 0 SARAHY-7 AMB Questionnaire SARAHY-7 Date SARAHY - 7 assessed: 04/22/25 Feeling nervous, anxious, or on edge: 3 = Nearly every day Not being able to stop or control worryin = Not at all Worrying too much about different things: 0 = Not at all Trouble relaxin = Not at all Being so restless that it is hard to sit still: 0 = Not at all Becoming easily annoyed or irritable: 0 = Not at all Feeling afraid as if something awful might happen: 0 = Not at all Total SARAHY-7 score (0-4 normal; 5-9 mild; 10-14 moderate; 15-21 severe): 3 Source: Developed by Drs. Doug Schneider, Luli Chakraborty, George Cheatham and colleagues, with an educational theo from [email or web address]. Review of Systems Narrative Review of Systems - Cardiovascular: Reports palpitations and chest pain. - Respiratory: Reports shortness of breath. - Neurological: Reports dizziness, described as a room-spinning sensation (vertigo) with rapid position changes, and unsteadiness. - Gastrointestinal: Reports emesis with prior physical therapy for vertigo. - Genitourinary: Reports nocturia, waking at 2:30-3:00 a.m. to urinate. Physical exam (Primary Care) Vital Signs: Last Vital Signs Temp 97.7 F 04/22/25 11:24 Pulse 58 04/22/25 11:24 BP 126/72 04/22/25 11:24 Pulse Ox 97 04/22/25 11:24 Oxygen Delivery Method Room Air 04/22/25 11:24 BMI result Body Mass Index 21.5 Tobacco/Smoking Status: Tobacco use Status Tobacco use date assessed 04/22/25 04/22/25 11:25 Patient Tobacco Use Status Current everyday Tobacco 04/22/25 11:25 e-Cigarette/Vaping Use Currently Using 04/22/25 11:25 PHQ-9: PHQ-9 Score PHQ-9: Total score 9 04/27/25 17:28 GENERAL Well developed, Well nourished, in no apparent distress HEENT Head-Normocephalic Neck- Supple, No lymphadenopathy, thyroid WNL RESPIRATORY Normal I:E, Clear to auscultation CARDIOVASCULAR Regular, rate and rhythm, No murmurs or rubs GASTROINTESTINAL Soft, nontender, normal bowel sounds, no masses MUSCULOSKELETAL Back- nontender Joints- no swelling or deformity NEUROLOGICAL Gait normal PSYCHIATRIC Oriented to person, place and time Mood and affect -depressed Appearance WNL Speech WNL Thought processes WNL Depression Screening Interpretation: Positive (Patient to follow up with his Psychiatrist) Depression Screening Follow-up: In treatment Thrive Assessment: Date of Thrive Assessment Date Thrive assessed 04/22/25 04/22/25 11:25 Coding Level of Care Code Established Pt Complex visit Add On G2211 Patient Type Established Diagnoses MDD (major depressive disorder), recurrent, in partial remission F33.41 History of substance abuse F19.11 Migraine without aura and without status migrainosus, not intractable G43.009 Status migrainosus presence: without status migrainosus Intractability: not intractable Cognitive dysfunction F09 Dizziness R42 Palpitations R00.2 Time Spent (min) 35 Comment Time spent on chart review, H&P, Patient education and orders. Assessment & Plan Assessment & Plan (1) MDD (major depressive disorder), recurrent, in partial remission: Code(s): F33.41 - Major depressive disorder, recurrent, in partial remission Category: Medical Plan: Patient to follow up with Psychiatrist (2) History of substance abuse: Comment: on Methathadone Code(s): F19.11 - Other psychoactive substance abuse, in remission Category: Medical (3) Migraine without aura: Code(s): G43.009 - Migraine without aura, not intractable, without status migrainosus Category: Medical Qualifiers: Status migrainosus presence: without status migrainosus Intractability: not intractable Qualified Code(s): G43.009 - Migraine without aura, not intractable, without status migrainosus Plan: Patient to follow up with Neurology (4) Cognitive dysfunction: Code(s): F09 - Unspecified mental disorder due to known physiological condition Category: Medical Plan: Patient to follow up with Neurology (5) Dizziness: Code(s): R42 - Dizziness and giddiness Category: Medical Plan: Will get labs. Will try Meclizine. Patient to follow up in 8 weeks or sooner if symptoms persist or worsen. (6) Palpitations: Code(s): R00.2 - Palpitations Category: Medical Plan: Patient to follow up with Cardiology Plan Plan Patient was informed and verbally consented to the use of an ambient scribe for clinic note documentation during this visit. 1. Dizziness And Vertigo The patient's dizziness is likely multifactorial, with components of orthostatic symptoms related to his known bradycardia, as well as true vertigo. He will be started on meclizine to take as needed for dizziness, particularly in the mornings. If the meclizine stabilizes his symptoms, a referral to physical therapy will be reconsidered. Lab work will be ordered to check vitamin B12 and vitamin D levels to rule out deficiencies as a contributing factor. He will proceed with his scheduled neurology appointment in July for further evaluation. 2. Cardiovascular Symptoms The patient continues to report palpitations, chest pain, and shortness of breath. He will continue to follow up with cardiology and is scheduled for an appointment in May. Discussion Notes I discussed with the patient that his dizziness may be partly due to his slow heart rate, which can affect blood flow when he stands up, and that he also appears to have some vertigo. I prescribed meclizine for the dizziness, to be taken as needed, and we will consider another attempt at physical therapy if the medication is helpful. We reviewed his upcoming specialist appointments, and I advised him to call the urologist's office to confirm his appointment details. I also explained that I am ordering blood work to check his vitamin B12 and D levels. Patient Instructions - Take the new medication, meclizine, for dizziness, especially in the morning or when you feel the symptoms are worst. You do not have to take it if you are feeling fine. - Please go to the lab for blood work to check your vitamin B12 and vitamin D levels. - You will need to call and reschedule your colonoscopy since the preparation did not work. - Keep your appointment with the audio visual production specialist (Cardiology) in May and the senior telecommunications specialist (Neurology) in July. - Please call the urologist's office to confirm the date and time of your next appointment. Orders: Orders Complete Blood Count no Diff 04/22/25 D64.9 - Anemia, unspecified Ferritin 04/22/25 D64.9 - Anemia, unspecified, R42 - Dizziness and giddiness Vitamin B12 and Folate 04/22/25 R42 - Dizziness and giddiness Vitamin D 25-OH Total 04/22/25 R42 - Dizziness and giddiness TSH reflex Free T4 04/22/25 R42 - Dizziness and giddiness Medications: New meclizine 25 mg PO TID PRN 90 tabs 1RF dizziness
[2025-04-22 11:24] VITALS: BP 126/72; PULSE 58; TEMP 36.5; O2SAT 97; BMI 21.5
--- OUTSIDE RECORDS SUMMARY | 2025-04-22 21:14 | XMS_ITS | Patient Health Record ---
Author Organization Ivan Schultz MD Address [address] [address] Reason For Referral No Information Plan Of Treatment No Information
== END 2025-04-22 12:11 | disposition home or self-care (01) ==
LOC: HO.HMCHD 10:47
PROVIDERS: PCP Physician Assistant Medical; Visit Provider Physician Assistant Medical
DX: F33.41 Major depressive disorder, recurrent, in partial remission (principal); F19.11 Other psychoactive substance abuse, in remission; G43.009 Migraine without aura, not intractable, without status migrainosus; F09 Unspecified mental disorder due to known physiological condition; R42 Dizziness and giddiness; R00.2 Palpitations

== ENCOUNTER → 2025-04-22 10:47 | Outpatient (BNVA) | payer OTHER, SELFPAY | PROVIDERS: PCP Physician Assistant Medical; Visit Provider Physician Assistant Medical | DX: F33.41 Major depressive disorder, recurrent, in partial remission (principal); F19.11 Other psychoactive substance abuse, in remission; G43.009 Migraine without aura, not intractable, without status migrainosus; R00.2 Palpitations; R42 Dizziness and giddiness; F09 Unspecified mental disorder due to known physiological condition; D64.9 Anemia, unspecified | CPT/HCPCS: 99212 ==

== ENCOUNTER 2025-05-21 08:00 | Outpatient (REF) | payer OTHER, SELFPAY ==
--- OUTSIDE RECORDS SUMMARY | 2025-05-21 08:07 | XMS_ITS | Patient Health Record ---
Author Organization Ivan Schultz MD Address [address] [address] Reason For Referral No Information Plan Of Treatment No Information
[2025-05-21 08:48] LABS: Hematocrit 40.6 % (42.0-52.0); Hemoglobin 13.0 g/dl (14.0-18.0); Mean Corpuscular HGB Conc 32.0 g/dl (31.0-36.0); Mean Corpuscular Hemoglobin 29.5 pg (27.0-33.0); Mean Corpuscular Volume 92.3 fL (80.0-98.0); NRBC Abs Auto 0.000 X10*3/uL (0.0-0.012); NRBC Pct Auto 0.0 /100WBC (0.0-0.2); Platelet Count 292 X10*3/uL (160-400); Red Blood Count 4.40 X10*6/uL (4.60-5.80); White Blood Count 7.3 X10*3/uL (4.8-10.8)
[2025-05-21 10:30] LABS: Ferritin 55 ng/mL (20-250)
[2025-05-21 10:45] LABS: Folate 7.5 ng/mL (> or = 4.0); Vitamin B12 363 pg/mL (200-900)
== END 2025-05-21 08:01 ==
LOC: HO.LAB 08:00
PROVIDERS: Nurse Practitioner Family; Absent Provider Nurse Practitioner Family; PCP Physician Assistant Medical; Visit Provider Physician Assistant Medical
DX: E29.1 Testicular hypofunction (principal); D64.9 Anemia, unspecified; N52.9 Male erectile dysfunction, unspecified; F09 Unspecified mental disorder due to known physiological condition; E55.9 Vitamin D deficiency, unspecified; R42 Dizziness and giddiness
CPT/HCPCS: 36415; 82306; 82607; 82728; 82746; 83002; 84402; 84403; 84443; 85027